=== PATIENT | female | born 1960 | race Caucasian/White ===

== ENCOUNTER 2020-07-30 13:57 | Outpatient (REF) | payer OTHER, SELFPAY ==
--- NOTE | 2020-07-30 17:25 | PFT_ITS ---
Forced vital capacity moderately reduced. FEV1 is markedly reduced. OQT94-17 and MVV are also markedly reduced. Post bronchodilator therapy, there is significant improvement in all the flow volumes. Total lung capacity and residual volume normal. Diffusion capacity normal. CONCLUSION: Moderately severe obstructive airway disorder. Partial reversibility after bronchodilator therapy is noted. These findings are consistent with asthma/COPD overlap syndrome. Clinical correlation recommended. MD JESIKA Mullen/MODL / [id number]
== END 2020-07-30 13:58 | disposition home or self-care (01) ==
LOC: HO.RESP 13:57
PROVIDERS: PCP Internal Medicine; Visit Provider Hospitalist
DX: R06.00 Dyspnea, unspecified (principal)
CPT/HCPCS: 94060; 94727; 94729; 99212

== ENCOUNTER 2020-07-31 12:09 | Outpatient (REF) | payer OTHER, SELFPAY ==
[2020-07-31 12:52] LABS: ABG Base Excess 1.6 mmol/L; ABG HCO3 25 mmol/L (22-26); ABG pCO2 34 mmHg (32-45); ABG pCO2 TC 34 mmHg (32-45); ABG pH 7.46 (7.35-7.45); ABG pH TC 7.46 (7.35-7.45); ABG pO2 109 mmHg (83-108); ABG pO2 TC 109 (83-108)
[2020-07-31 12:53] LABS: ABG Refer to POC result
== END 2020-07-31 12:10 | disposition home or self-care (01) ==
LOC: HO.LAB 12:09
PROVIDERS: PCP Internal Medicine; Visit Provider Hospitalist
DX: Z13.89 Encounter for screening for other disorder (principal)

== ENCOUNTER → 2020-10-01 10:36 | Outpatient (BNVA) | payer OTHER, SELFPAY | PROVIDERS: PCP Internal Medicine; Visit Provider Hospitalist | DX: J96.11 Chronic respiratory failure with hypoxia (principal); J96.12 Chronic respiratory failure with hypercapnia; J43.2 Centrilobular emphysema; J38.3 Other diseases of vocal cords; J02.9 Acute pharyngitis, unspecified; D80.1 Nonfamilial hypogammaglobulinemia | CPT/HCPCS: 99212 ==

== ENCOUNTER → 2020-12-03 09:28 | Outpatient (BNVA) | payer OTHER, SELFPAY | PROVIDERS: PCP Internal Medicine; Visit Provider Hospitalist | DX: J96.11 Chronic respiratory failure with hypoxia (principal); J96.12 Chronic respiratory failure with hypercapnia; J43.2 Centrilobular emphysema; D80.1 Nonfamilial hypogammaglobulinemia | CPT/HCPCS: 99212 ==

== ENCOUNTER 2021-05-14 09:33 | Outpatient (REF) | payer OTHER, SELFPAY ==
--- NOTE | ~2021-05-14 | XR_ITS ---
EXAMINATION: XR CHEST CLINICAL INFORMATION: COPD. SOB. COMPARISON: Chest 05/25/2019 TECHNIQUE: 2 views of the chest were obtained. FINDINGS: The lungs are well-expanded and clear of acute process. The heart size and pulmonary vascularity is normal. No gross bony abnormality seen. XR/XR chest 2V IMPRESSION: No acute cardiopulmonary process seen. No change from 05/25/2019
[2021-05-14 10:53] LABS: MANUAL DIFF FLAG NO
[2021-05-14 11:06] LABS: Basophils Percent Auto 0.2 % (0-2); Hematocrit 36.3 % (37.0-47.0); Imm Gran Abs Auto 0.02 X10*3/uL (0.00-0.03); Imm Gran Pct Auto 0.4 % (0.0-0.4); Lymphocytes Absolute Auto 0.9 X10*3/uL (1.2-4.9); Lymphocytes Percent Auto 17.5 % (20-40); Mean Corpuscular HGB Conc 33.1 g/dl (31.0-35.0); Mean Corpuscular Hemoglobin 30.5 pg (27.0-33.0); Mean Corpuscular Volume 92.1 fL (80.0-98.0); Mean Platelet Volume 10.9 fL (9.4-12.3); Monocytes Absolute Auto 0.1 X10*3/uL (0.1-1.2); Neutrophils Absolute Auto 3.9 x10*3/uL (2.0-8.3); Neutrophils Percent Auto 79.9 % (45-73); Platelet Count 192 X10*3/uL (160-400); Red Blood Count 3.94 X10*6/uL (4.20-5.50); Red Cell Distribution Width 14.1 % (11.0-16.0); White Blood Count 4.9 X10*3/uL (4.8-10.8)
[2021-05-14 11:16] LABS: D Dimer High Sensitivity 290 NG/ML
[2021-05-14 11:37] LABS: Anion Gap 13 (12-20); Blood Urea Nitrogen 24 mg/dL (9-16); Calcium 9.4 mg/dL (8.4-10.2); Carbon Dioxide 23 mmol/L (22-29); Chloride 109 mmol/L (96-108); Estimated Glomerular Filt Rate > 60; Glucose Random 126 mg/dL (60-115); Sodium 141 mmol/L (135-145)
[2021-05-14 11:46] LABS: Erythrocyte Sedimentation Rate 19 MM/HR (0-20)
[2021-05-15 05:10] LABS: SARS COV2 IgG Negative (Negative)
== END 2021-05-14 09:34 | disposition home or self-care (01) ==
LOC: HO.LAB 09:33
PROVIDERS: PCP Internal Medicine; Visit Provider Hospitalist
DX: J96.10 Chronic respiratory failure, unspecified whether with hypoxia or hypercapnia (principal); J44.9 Chronic obstructive pulmonary disease, unspecified; R05.9 Cough, unspecified; D80.1 Nonfamilial hypogammaglobulinemia; Z20.822 Contact with and (suspected) exposure to COVID-19; Z88.1 Allergy status to other antibiotic agents; Z88.0 Allergy status to penicillin; Z88.8 Allergy status to other drugs, medicaments and biological substances; Z88.9 Allergy status to unspecified drugs, medicaments and biological substances; Z23 Encounter for immunization
CPT/HCPCS: 36415; 71046; 80048; 85025; 85379; 85652; 86769; 96372; 99212; J2930

== ENCOUNTER 2021-05-16 13:49 | Outpatient (REF) | payer OTHER, SELFPAY ==
--- NOTE | ~2021-05-16 | CT_ITS ---
EXAMINATION: CT ANGIOGRAM OF THE CHEST WITH AND WITHOUT CONTRAST (CT PULMONARY ANGIOGRAM FOR PE) CLINICAL INFORMATION: Reason for Exam R06.00 - Dyspnea, unspecified COMPARISON: Previous chest x-rays most recent 05/14/2021 TECHNIQUE: Prior to contrast administration, noncontrast localization images were obtained. Subsequently, multidetector volumetric imaging was performed from the thoracic inlet to below the diaphragms following the administration of 65 mL Omnipaque 350 intravenous contrast. No contrast reaction reported Sagittal, coronal, and MIP oblique sagittal reformatted images were obtained on the CT workstation, uploaded to PACS, and reviewed. This CT examination was performed using dose optimization techniques as appropriate, variously including the following: *Automated exposure control *Adjustment of mA and/or kV according to patient size (this includes techniques or standardized protocols for targeted exams where dose is matched to indication/reason for exam; i.e. extremities or head) *Use of iterative reconstruction technique Total exam dose-length product 112 mGy-cm FINDINGS: QUALITY OF STUDY/CONTRAST BOLUS: Satisfactory. PULMONARY ARTERIES: No central or segmental pulmonary emboli. THORACIC AORTA: No aneurysm or dissection. LUNG: No focal consolidation, nodules or masses. PLEURA: No pleural effusion or pneumothorax. MEDIASTINUM: Normal heart size. No pericardial effusion. No hilar or mediastinal lymphadenopathy. No evidence of septal bowing or right heart strain. CHEST WALL/AXILLA: No axillary or internal mammary lymphadenopathy. OSSEOUS STRUCTURES: There is an L1 vertebral body compression fracture. This is new in the interval from April 2019 chest x-ray. UPPER ABDOMEN: There are postsurgical changes to the stomach following gastric sleeve procedure. No reflux of contrast into the hepatic veins to suggest elevated right heart pressures. CT/CT angio chest PE protocol IMPRESSION: No evidence of pulmonary embolism. L1 vertebral body compression fracture new in the interval from April 2019 exam. VTE: negative
[2021-05-16] MEDS: iohexoL 350 MG/ML 100 ML INFUS..BTL IV (14:43)
== END 2021-05-16 13:50 | disposition home or self-care (01) ==
LOC: HO.CT 13:49
PROVIDERS: PCP Internal Medicine; Visit Provider Hospitalist
DX: R06.00 Dyspnea, unspecified (principal); R78.89 Finding of other specified substances, not normally found in blood
CPT/HCPCS: 71275; Q9967

== ENCOUNTER → 2021-06-04 10:36 | Outpatient (BNVA) | payer OTHER, SELFPAY | PROVIDERS: PCP Internal Medicine; Visit Provider Hospitalist | DX: J44.1 Chronic obstructive pulmonary disease with (acute) exacerbation (principal); J96.11 Chronic respiratory failure with hypoxia; J96.12 Chronic respiratory failure with hypercapnia; D80.1 Nonfamilial hypogammaglobulinemia; I27.20 Pulmonary hypertension, unspecified | CPT/HCPCS: 99212 ==

== ENCOUNTER → 2021-06-20 13:51 | Outpatient (REF) | payer OTHER, SELFPAY ==
--- NOTE | 2021-06-20 13:54 | CA_ITS ---
Transthoracic Echocardiogram Patient (Last, First, Middle): Ann Knox, Gender: Female Date of : 1960 Age: 60 Procedure Date: 06/20/2021 Procedure Type: Transthoracic Echocardiogram Location: OP Height: 160.02 cm Weight: 70.31 kg BSA: 1.74 m2 Heart Rate: bpm BP: 120 / 70 mmHg Booth Manager: CAMELIA Referring MD: Benoit Vazquez MD Symptoms: I27.20 - Pulmonary hypertension, unspecified Study Quality: Fair ECG Rhythm: Sinus Conclusions: - The left ventricular systolic function is normal. The calculated ejection fraction is 62% by biplane method. - No obvious valvular pathology seen on this study. - The pulmonary artery systolic pressure is normal. Findings Left Ventricle Normal left ventricular cavity size. There is normal left ventricular wall thickness. The left ventricular systolic function is normal. The calculated ejection fraction is 62% by biplane method. There is no evidence of regional wall motion abnormalities. Diastolic function is normal for age. Right Ventricle Normal right ventricular cavity size and systolic function. Atria Both atria are normal in size. Aortic Valve There is a normal trileaflet aortic valve. There is no aortic valve stenosis. There is no aortic valve regurgitation. Mitral Valve The mitral valve appears normal. There is trace mitral valve regurgitation. There is no mitral valve stenosis. Pulmonic Valve The pulmonic valve was not well visualized. Tricuspid Valve Normal tricuspid valve structure. There is trace tricuspid valve regurgitation. The pulmonary artery systolic pressure is normal. Great Vessels The aortic annulus, sinuses of valsalva, and asc aorta are normal in size. Venous The inferior vena cava is normal in size and collapses greater than 50% with inspiration. Pericardium/Pleural There is no evidence of pericardial effusion. Prior Study Comparison No prior study available for comparison. Recommendations, Care & Conclusions No obvious valvular pathology seen on this study. Measurements 2D Linear Measurements IVSd: 0.96 0.6-0.9/0.6-1.0 cm LVIDd: 4.81 3.9-5.3/4.2-5.9 cm LVIDd Index: 2.76 2.4-3.2/2.2-3.1 cm/m2 LVIDs: 2.95 2.0-3.6 cm LVPWd: 0.90 0.7-1.1 cm Ao Root: 2.80 2.1-3.5 cm LA Diam: 3.30 2.7-3.8/3.0-4.0 cm LAIDs Index: 1.90 1.5-2.3 cm/m2 LV Mass: 192.87 67-162/88-224 g LV Mass Index: 110.85 43-95/49-115 g/m2 LVOT Diam: 2.00 3.0+(-)1.3 cm 2D Systolic Function EF 4C: 60.90 >55% EF 2C: 62.60 >55% EF BiP: 61.60 >55% Mitral Valve MV Pk E: 0.82 MV PK A: 0.75 MV Decel Time: 205.00 E/A: 1.10 E'Lateral: 10.40 E'Medial: 7.07 E/E' Med: 11.60 E/E' Lat: 7.90 PHT: 60.00 MVA PHT: 3.67 Decel [place]: 3.99 Aortic Valve AoV Pk Raffaele: 1.32 AoV Mn Raffaele: 0.93 AoV VTI: 0.29 AoV Pk Grad: 7.00 Aov Mn Grad: 4.00 DAVID Cont.VTI: 3.02 LVOT LVOT Pk Raffaele: 1.19 LVOT Mn Raffaele: 0.81 LVOT VTI: 0.28 LVOT Pk Grad: 6.00 LVOT Mn Grad: 3.00 LVOT Diam: 2.00 LVOT Area: 3.14 Diastolic Function MV Pk E: 0.82 MV Pk A: 0.75 E/A: 1.10 E'Medial: 7.07 E/E' Med: 11.60 E' Laterial: 10.40 E/E' Lat: 7.90 Right Ventricle TAPSE (mm): 22.10 TVS' Raffaele: 11.50 Tricuspid Valve TR Pk Raffaele: 2.27 TR Pk Grad: 21.00 RA Press: 3.00 RVSP: 24.00 Great Vessels Aorta Ao Root-2D: 2.80 2.0-3.7 cm Ao Asc: 2.80 2.1-3.4 cm Ao Arch: 2.80 Updated in Other Vendor System with Status of Final Shaan Littlejohn MD electronically signed on 06/22/2021 12:51:42 PM with status of Final
== END ==
LOC: HO.CARD 13:51
PROVIDERS: Visit Provider Hospitalist
DX: I27.20 Pulmonary hypertension, unspecified (principal)
CPT/HCPCS: 93306

== ENCOUNTER 2021-07-28 08:59 | Outpatient (REF) | payer OTHER, SELFPAY ==
--- NOTE | 2021-07-28 10:45 | PFT_ITS ---
INDICATION: COPD. SPIROMETRY: The FEV1 to FVC 62% with an FEV1 of 1.5 L, which is 64% predicted and an FVC of 2.38 L, which is 78% predicted. Post bronchodilators, there was a significant improvement of the FVC by 32% and the FEV1 by 40%. The patient also has significant small airways disease noted. Maximum voluntary ventilation 44% predicted. LUNG VOLUMES: Total lung capacity 84% predicted with a residual volume of 120% predicted. The expiratory reserve volume 34% predicted. DIFFUSION CAPACITY: DLCO 74% predicted. COMPARISONS: PFTs from 2020. INTERPRETATION: There is an obstructive ventilatory defect consistent with moderate COPD. There was a significant response to bronchodilators, which is very reassuring and suspicious for asthma COPD overlap syndrome. The patient also has significant small airways disease. There is a [id number] decrease in maximum voluntary ventilation secondary to deconditioning and also worsening dynamic inspiratory capacity. The patient also has a mild diffusion impairment. When compared to 2020, there is a trend increase in the FVC, trend decrease in the FEV1, a trend decrease in the total lung capacity, and a significant decrease in the diffusing capacity. Clinical correlation warranted. MD CHASIDY Garcia/RICHI / [id number]
== END 2021-07-28 09:00 | disposition home or self-care (01) ==
LOC: HO.RESP 08:59
PROVIDERS: PCP Internal Medicine; Visit Provider Hospitalist
DX: R06.00 Dyspnea, unspecified (principal); I27.20 Pulmonary hypertension, unspecified
CPT/HCPCS: 94060; 94727; 94729

== ENCOUNTER → 2021-08-06 10:29 | Outpatient (BNVA) | payer OTHER, SELFPAY | PROVIDERS: PCP Internal Medicine; Visit Provider Internal Medicine Cardiovascular Disease | DX: R06.00 Dyspnea, unspecified (principal) | CPT/HCPCS: 93005; 99202 ==

== ENCOUNTER → 2021-08-29 12:56 | Outpatient (BNVA) | payer OTHER, SELFPAY | PROVIDERS: PCP Internal Medicine; Visit Provider Hospitalist | DX: J44.1 Chronic obstructive pulmonary disease with (acute) exacerbation (principal); J96.11 Chronic respiratory failure with hypoxia; J96.12 Chronic respiratory failure with hypercapnia; D80.1 Nonfamilial hypogammaglobulinemia; I27.20 Pulmonary hypertension, unspecified | CPT/HCPCS: 99212 ==

== ENCOUNTER → 2021-09-02 09:24 | Outpatient (REF) | payer OTHER, SELFPAY ==
--- NOTE | ~2021-09-02 | NM_ITS ---
Lexiscan Myocardial perfusion study Indication: Shortness of breath, assess for coronary disease and ischemia Technique: The patient was brought in for a Lexiscan perfusion study on 09/02/2021 and was injected 0.4 mg of Lexiscan intravenously. Within a minute of this injection 25 mCi of sestamibi was given intravenously. Images were obtained using the SPECT gamma camera interlaced with the gating device. Images were obtained in supine position. Resting perfusion study was performed on 09/03/2021. Patient was administered 25 mCi of sestamibi intravenously at rest. Images were then obtained in supine position. Total DLP 101mGy-cm. Images were processed with the software and compared side to side in short axis, horizontal long axis and vertical long axis views. Findings: Raw acquisition was reviewed. The stress perfusion study showed no significant perfusion abnormality. Inferior wall uptake not clearly seen as there is adjacent GI tracer uptake. With CT attenuation correction, perfusion is overall diminished in that could be from artifactual reasons. During gating, visually, LVEF appears normal with calculated to be 32%. Could be erroneous. Global and regional wall thickening appears to be within normal limits but inferior wall assessment is again suboptimal. LV cavity is normal in size. Resting study shows no significant perfusion abnormality. Gating at rest reveals normal wall motion with ejection fraction at 54%. The findings are consistent with no definite reversible or fixed perfusion defects but inferior wall assessment suboptimal. NM/NM rena perf SPECT rest & str Impression: 1. Myocardial perfusion imaging study shows no clear evidence of any ischemia or infarction. However, there is GI tracer uptake interfering with inferior wall assessment and hence cannot definitively exclude findings in this area. 2. Gated LVEF is 34% during stress but visually appears to be normal; 54% during rest. 3. Transient ischemic dilatation not present. EKG component of the test reported separately.
--- NOTE | 2021-09-02 09:28 | CA_ITS ---
Acquisition Time: 2021-09-02 09:51:12 Total Exercise Time: 00:02:00 Test Indications: SOB Medications: Protocol: LEXISCAN Max HR: 094 BPM 59% of Pred: 159 BPM Max BP: 118/064 mmHG Max Work Load: 1.0 METS Pharmacological stress test with Lexican injection, while sitting and kicking her legs, without anginal symptoms, without arrythmia, with normotensive response to injection, with nondiagnostic EKG for ischemia. Nuclear images pending. Test reviewed with Dr Gupta. note: prior to test she reported hx of asthma and was given Albuteral 2 puffs Referred By: Rc Gupta Overread By: ANITHA MARKHAM
== END ==
LOC: HO.CARD 09:24
PROVIDERS: PCP Internal Medicine; Visit Provider Internal Medicine Cardiovascular Disease
DX: I27.20 Pulmonary hypertension, unspecified (principal); R06.00 Dyspnea, unspecified
CPT/HCPCS: 78452; 93017; A9500; J0280; J2785

== ENCOUNTER → 2021-12-23 10:50 | Outpatient (BNVA) | payer OTHER, SELFPAY | PROVIDERS: PCP Internal Medicine; Visit Provider Hospitalist | DX: J44.1 Chronic obstructive pulmonary disease with (acute) exacerbation (principal); J96.11 Chronic respiratory failure with hypoxia; J96.12 Chronic respiratory failure with hypercapnia; G47.33 Obstructive sleep apnea (adult) (pediatric); D80.1 Nonfamilial hypogammaglobulinemia; I27.20 Pulmonary hypertension, unspecified; Z99.89 Dependence on other enabling machines and devices | CPT/HCPCS: 99212 ==

== ENCOUNTER → 2022-02-26 13:24 | Outpatient (BNVA) | payer OTHER, SELFPAY | PROVIDERS: PCP Internal Medicine; Visit Provider Psychiatry & Neurology Neurology | DX: M79.652 Pain in left thigh (principal) | CPT/HCPCS: 99202 ==

== ENCOUNTER → 2022-04-07 14:03 | Outpatient (BNVA) | payer OTHER, SELFPAY | PROVIDERS: PCP Internal Medicine; Visit Provider Nurse Practitioner Family | DX: M79.652 Pain in left thigh (principal); M62.838 Other muscle spasm; G57.92 Unspecified mononeuropathy of left lower limb; Z96.642 Presence of left artificial hip joint | CPT/HCPCS: 99202 ==

== ENCOUNTER 2022-05-13 06:06 | Outpatient (REF) | payer OTHER, SELFPAY | END 2022-05-13 06:07 | disposition home or self-care (01) | LOC: CF 06:06 | PROVIDERS: Visit Provider Internal Medicine | DX: G57.12 Meralgia paresthetica, left lower limb (principal); G57.92 Unspecified mononeuropathy of left lower limb | CPT/HCPCS: 64450 ==

== ENCOUNTER → 2022-05-18 10:51 | Outpatient (BNVA) | payer OTHER, SELFPAY | PROVIDERS: PCP Internal Medicine; Visit Provider Nurse Practitioner Family | DX: M79.652 Pain in left thigh (principal); G57.92 Unspecified mononeuropathy of left lower limb; M25.511 Pain in right shoulder; G57.12 Meralgia paresthetica, left lower limb | CPT/HCPCS: 99212 ==

== ENCOUNTER 2022-05-27 04:51 | Outpatient (REF) | payer OTHER, SELFPAY | END 2022-05-27 04:52 | disposition home or self-care (01) | LOC: CF 04:51 | PROVIDERS: Visit Provider Internal Medicine | DX: G57.12 Meralgia paresthetica, left lower limb (principal) | CPT/HCPCS: 64450; J1020; J1040; J1100; J2795; J3301 ==

== ENCOUNTER → 2022-06-12 11:28 | Outpatient (BNVA) | payer OTHER, SELFPAY | PROVIDERS: PCP Internal Medicine; Visit Provider Nurse Practitioner Family | DX: Z13.89 Encounter for screening for other disorder (principal) ==

== ENCOUNTER → 2022-07-06 09:13 | Outpatient (BNVA) | payer OTHER, SELFPAY | PROVIDERS: PCP Internal Medicine; Visit Provider Internal Medicine | DX: M54.6 Pain in thoracic spine (principal); M54.50 Low back pain, unspecified; G57.12 Meralgia paresthetica, left lower limb; G57.92 Unspecified mononeuropathy of left lower limb; G89.29 Other chronic pain | CPT/HCPCS: 99212 ==

== ENCOUNTER → 2022-07-27 09:07 | Outpatient (BNVA) | payer OTHER, SELFPAY | PROVIDERS: PCP Internal Medicine; Visit Provider Nurse Practitioner Family | DX: G57.12 Meralgia paresthetica, left lower limb (principal); G57.92 Unspecified mononeuropathy of left lower limb; M25.511 Pain in right shoulder; M79.652 Pain in left thigh; J44.9 Chronic obstructive pulmonary disease, unspecified; G47.33 Obstructive sleep apnea (adult) (pediatric); Z98.84 Bariatric surgery status; Z96.642 Presence of left artificial hip joint; Z99.89 Dependence on other enabling machines and devices | CPT/HCPCS: 99212 ==

== ENCOUNTER 2022-07-31 10:00 | Outpatient (REF) | payer OTHER, SELFPAY ==
--- NOTE | 2022-07-31 11:24 | PFT_ITS ---
FLOWS: 1. FEV1 of 65% of predicted at 1.52 L. 2. FVC 76% of predicted at 2.30 L. 3. FEV1 to FVC ratio of 0.66. 4. Positive bronchodilator response. LUNG VOLUMES: 1. Total lung capacity 85% of predicted at 4.07 L. 2. Residual volume 107% of predicted at 2.08 L. 3. Slow vital capacity 70% of predicted at 1.98 L. 4. Expiratory reserve volume 7% of predicted at 0.06 L. 5. Diffusion capacity is normal. IMPRESSION: Moderate obstructive ventilatory defect with positive bronchodilator response. Maninder Barrett MD AP/MODL / [id number]
== END 2022-07-31 10:01 | disposition home or self-care (01) ==
LOC: HO.RESP 10:00
PROVIDERS: PCP Internal Medicine; Visit Provider Hospitalist
DX: J44.1 Chronic obstructive pulmonary disease with (acute) exacerbation (principal)
CPT/HCPCS: 94060; 94727; 94729

== ENCOUNTER 2022-08-18 06:12 | Outpatient (REF) | payer OTHER, SELFPAY ==
--- NOTE | ~2022-08-18 | FL_ITS ---
EXAMINATION: XR FLUOROSCOPY WITH IMAGES CLINICAL INFORMATION: M25.511 - Pain in right shoulder COMPARISON: Chest radiographs 05/14/2021 TECHNIQUE: Fluoroscopy Supervised By: Dr. Tanvir Martines. Fluoroscopy Time: 0.2 minutes. Cumulative Dose: 1.74 mGy. DAP: 0.474 Gycm2. Images: 1. FINDINGS: There is a spinal needle overlying the superior medial right humeral head. Intracapsular intra-articular contrast is demonstrated. There is nodularity of the contrast contours may suggest synovitis or loose bodies. FL/FL guidance in treatment room IMPRESSION: Fluoroscopy for pain management procedure.
== END 2022-08-18 06:13 | disposition home or self-care (01) ==
LOC: CF 06:12
PROVIDERS: Visit Provider Anesthesiology
DX: M25.511 Pain in right shoulder (principal); G57.12 Meralgia paresthetica, left lower limb; G57.92 Unspecified mononeuropathy of left lower limb; M79.652 Pain in left thigh
CPT/HCPCS: 20610; J3301

== ENCOUNTER → 2022-09-15 14:57 | Outpatient (BNVA) | payer OTHER, SELFPAY | PROVIDERS: PCP Internal Medicine; Visit Provider Nurse Practitioner Family | DX: G57.12 Meralgia paresthetica, left lower limb (principal); M25.552 Pain in left hip; M79.652 Pain in left thigh; M25.511 Pain in right shoulder; M62.838 Other muscle spasm; Z96.641 Presence of right artificial hip joint; Z91.81 History of falling | CPT/HCPCS: 99212 ==

== ENCOUNTER → 2022-09-25 10:49 | Outpatient (BNVA) | payer OTHER, SELFPAY | PROVIDERS: PCP Internal Medicine; Visit Provider Hospitalist | DX: J44.1 Chronic obstructive pulmonary disease with (acute) exacerbation (principal); J96.11 Chronic respiratory failure with hypoxia; J96.12 Chronic respiratory failure with hypercapnia; I27.20 Pulmonary hypertension, unspecified; D80.1 Nonfamilial hypogammaglobulinemia; R06.00 Dyspnea, unspecified | CPT/HCPCS: 99212 ==

== ENCOUNTER 2022-10-19 10:26 | Outpatient (REF) | payer OTHER, SELFPAY ==
--- NOTE | ~2022-10-19 | XR_ITS ---
EXAMINATION: XR CERVICAL SPINE CLINICAL INFORMATION: Cervical spondylosis. COMPARISON: None available. TECHNIQUE: 6 views of the cervical spine, inclusive of flexion and extension views, were obtained. FINDINGS: Cervical spine is imaged through the level of the superior endplate of C7. There is 2 mm retrolisthesis of C3 on C4. Vertebral body heights are maintained. Moderate intervertebral disc space narrowing at C3-C4 through C5-C6 with right neural foraminal narrowing. Lateral masses are symmetric. Prevertebral soft tissues are within normal limits. XR/XR cervical spine min 6V IMPRESSION: Moderate cervical spondylosis with right neural foraminal narrowing.
== END 2022-10-19 10:27 | disposition home or self-care (01) ==
LOC: HO.XRAY 10:26
PROVIDERS: PCP Internal Medicine; Visit Provider Nurse Practitioner Family
DX: M47.812 Spondylosis without myelopathy or radiculopathy, cervical region (principal); M62.838 Other muscle spasm
CPT/HCPCS: 72052

== ENCOUNTER 2022-11-25 07:25 | Outpatient (REF) | payer OTHER, SELFPAY | END 2022-11-25 07:26 | disposition home or self-care (01) | LOC: CF 07:25 | PROVIDERS: PCP Internal Medicine; Visit Provider Internal Medicine | DX: G57.12 Meralgia paresthetica, left lower limb (principal) | CPT/HCPCS: 64450; J3301 ==

== ENCOUNTER 2022-11-25 08:50 | Outpatient (AMB) | payer OTHER, SELFPAY ==
[2022-11-25 08:57] VITALS: BP 122/76; PULSE 61; RESP 14; O2SAT 100
--- NOTE | 2022-11-25 08:57 | A.OFFVIS_ITS ---
Intake Vital Signs 11/25/22 08:57 BP 122/76 Blood Pressure Location Lt brachial Position Sitting Respiration 14 Pulse 61 Pulse Source Pulse Oximeter Pulse Oximetry (%) 100 Oxygen Delivery Method Room Air Intake Visit Reasons: Left Dx LFCN block Allergies ampicillin Allergy (Severe, Verified 10/19/22 10:31) Rash and Hives azithromycin Allergy (Severe, Verified 10/19/22 10:31) Rash/Hives methylprednisolone Allergy (Severe, Verified 10/19/22 10:31) Rash and Hives potassium Allergy (Severe, Verified 10/19/22 10:31) Rash and Hives theophylline Allergy (Severe, Verified 10/19/22 10:31) Rash and Hives aminophylline Allergy (Intermediate, Verified 10/19/22 10:31) Rash and Hives adhesive Allergy (Unknown, Verified 10/19/22 10:31) Rash Polyethylene Glycol Allergy (Severe, Uncoded 09/25/22 11:00) Rash and Hives Tape Allergy (Severe, Uncoded 09/25/22 11:00) Rash and Hives HPI Left Dx LFCN block HPI Details Patient presents for scheduled procedure. Denies any recent cough, cold, infection, fever or other significant changes in medical history since last office visit. [facility] Medical History Blood D-dimer assay positive Chronic respiratory failure COPD (chronic obstructive pulmonary disease) Dyspnea Glaucoma Hypogammaglobulinemia Hypothyroidism Menieres disease Obstructive sleep apnea Sore throat Vocal cord dysfunction Surgical History H/O abdominoplasty H/O gastric bypass H/O hemorrhoidectomy H/O inguinal hernia repair History of colon resection History of hip surgery Hx of section Hx of shoulder surgery S/P iridectomy Family History Father COPD (chronic obstructive pulmonary disease) Mother Type 2 diabetes mellitus Hypertension Renal insufficiency Family/Other Colon cancer AIDS Schizophrenia Social History Alcohol intake: current Alcohol intake frequency: does not drink Patient Tobacco Use Status: Never used Tobacco Current occupational status: disabled Physical Exam Vital Signs: Last Vital Signs Pulse 61 11/25/22 08:57 Resp 14 11/25/22 08:57 BP 122/76 11/25/22 08:57 Pulse Ox 100 11/25/22 08:57 Oxygen Delivery Method Room Air 11/25/22 08:57 Office Procedures Nerve Block Details: Lateral femoral cutaneous nerve block, Left, ultrasound-guided After obtaining written consent, pre-procedure blood pressure and heart rate were stable and recorded in the nursing record. The patient was placed supine on the stretcher. The anterior thigh area was widely prepped with chloraprep, allowed to dry. Using ultrasound, the appropriate landmarks including the femoral artery and femoral nerve were identified. The LFCN was tracked down to the anterior thigh area. A 25 gauge 1.5 in needle was advanced under sonographic guidance to the target. Aspiration was negative for heme. 10 cc of ropivacaine 0.5% mixed with 40mg Triamcinilone?was injected around the LFCN. The needle was removed, skin cleansed and a sterile bandage was applied. The patient tolerated the procedure well and no complications were encountered. Following the procedure the patient's vital signs were stable. The patient was discharged home in good condition with post-procedural instructions. Time Out: Immediately prior to the procedure, the following was verbally confirmed that there is a signed consent form and that the correct patient, planned procedure, site and side are consistent with documentation and that necessary equipment and/or blood products are available prior to the start of the case. Complications: none EBL: <1 cc Procedure code (CPT) selection complete Results Reviewed Results Reviewed: 11/25/22 09:17 Triamcinolone Acetonide [Kenalog-40] 40 mg .ROUTE .[facility] Assessment & Plan Assessment & Plan (1) Meralgia paresthetica of left side: Code(s): G57.12 - Meralgia paresthetica, left lower limb Plan Patient is status post therapeutic left LFCN block. Patient tolerated procedure well and was discharged home in stable condition with discharge instructions. All questions were answered. We will follow-up via telephone or in clinic to assess response to therapy. A follow-up appointment was made during today's visit. Recommend waiting on insurance change before resubmitting PA for PNS. Orders: Orders US guide needle placement Today G57.12 - Meralgia paresthetica, left lower limb Coding Level of Care Code Procedure Only Diagnoses Meralgia paresthetica of left side G57.12
== END 2022-11-25 09:27 | disposition home or self-care (01) ==
PROVIDERS: PCP Physician Assistant; Visit Provider Internal Medicine
DX: G57.12 Meralgia paresthetica, left lower limb (principal)
CPT/HCPCS: 64450

== ENCOUNTER 2022-12-29 10:13 | Outpatient (AMB) | payer OTHER, SELFPAY ==
--- NOTE | 2022-12-29 10:23 | A.OFFVIS_ITS ---
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 Required: No Allergies ampicillin Allergy (Severe, Verified 12/29/22 10:27) Rash and Hives azithromycin Allergy (Severe, Verified 12/29/22 10:27) Rash/Hives methylprednisolone Allergy (Severe, Verified 12/29/22 10:27) Rash and Hives potassium Allergy (Severe, Verified 12/29/22 10:27) Rash and Hives theophylline Allergy (Severe, Verified 12/29/22 10:27) Rash and Hives aminophylline Allergy (Intermediate, Verified 12/29/22 10:27) Rash and Hives clindamycin Allergy (Intermediate, Unverified 12/29/22 10:49) Rash adhesive Allergy (Unknown, Verified 12/29/22 10:27) Rash Polyethylene Glycol Allergy (Severe, Uncoded 12/29/22 10:27) Rash and Hives Tape Allergy (Severe, Uncoded 12/29/22 10:27) Rash and Hives HPI HPI Comments History of Present Illness Details The patient is a 62-year-old woman with a known history of severe COPD in addition to obstructive sleep apnea. The patient continues to using BiPAP at night the BiPAP therapy continues to be affecting beneficial. She has the BiPAP every night for more than 4 hours a night. [facility] I will request a download to see how effective it is for her. She continues to use her respiratory therapy. She has not required any prednisone. She continues to have significant shortness of breath, moderate severity. She does have oxygen at home that she uses. She is also using her BiPAP pressures 18/11. The therapy seems to be affecting beneficial. We did download the machine her AHI is down to 3.4. Her average use is more than 6 hours. The therapy appears to be very effective beneficial. She does use a nasal mask although sometimes she does have air leakage issues. She should consider using a fullface mask. Will try [id number] mask at this time. On examination she does have significant wheezing or rhonchi likely from bronchitis and COPD exacerbation. At this time we need to treat this before gets any worse. 05/14/2021 the patient is here for a pulmonary follow-up visit. The patient has been sick now for more than a week. She started developing worsening respiratory symptoms with chest tightness and pressure. Moderate severity. Initially she was evaluated by her primary care doctor. She had a COVID test was negative. She was placed on a Z-Santosh. She developed a rash. She then called our office and we had prescribed a course of prednisone in addition to doxycycline. She has been using now for 48 hours but the patient is no better she is having significant shortness of breath and wheezing. I did examine her and she had significant chest tightness throughout with wheezing throughout. She was given 3 treatments with Xopenex 1.25 mg via nebulizer with only partial improvement. Therefore, she was also provided with Solu-Medrol 125 mg IM x1. Hopefully this starts working in the next few hours. In the meantime the patient did go for blood work and also had a chest x-ray. She did have an x-ray last week in this 1 does not appear to show any acute disease. I did review her blood work which demonstrated an elevated D-dimer. Based on her refractory response to her therapy for a COPD exacerbation it is reasonable to at this point request a CTA to rule out thromboembolic disease. 06/04/2021 the patient is here for a pulmonary follow-up visit. She still complaining of shortness of breath and also chest discomfort at times. She is maximizing her respiratory therapy. The patient did have blood work including an elevated D-dimer. Therefore she did undergo a CTA. I did review the CTA with her. No evidence of any significant emphysema or interstitial lung disease. No evidence of any pulmonary emboli. However, the patient did have a dilated pulmonary trunk suggesting the possibility of pulmonary hypertension. Therefore, she is agreeable in undergoing echocardiogram. Also will be unreasonable for her to be evaluated by Cardiology just to make sure that she does not have a cardiac component. The patient should get a stress test at some point. Therefore I will order the echo and also refer her to Cardiology. 08/29/2021 the patient is here for a pulmonary follow-up visit. Overall she is doing relatively well. She did have a cardiac evaluation. Now planning to undergo a cardiac stress test. She did undergo an echocardiogram which is reassuring without any evidence of pulmonary hypertension. Her pulmonary function studies were consistent with her underlying COPD. But overall appears to be relatively stable. She continues use the BiPAP at nighttime the therapy has been affecting beneficial. Seems to be tolerating it well. She does not require oxygen along with BiPAP based on the overnight oximetry. 12/23/2021 the patient is here for a pulmonary follow-up visit. She continues to have dyspnea on exertion. Moderate severity. Specially with heat and humidity. She has not been able to leave her house. She continues use her respiratory therapy as prescribed. The therapy has been partially helpful. In the meantime she has been using her BiPAP. The BiPAP therapy continues to be affecting beneficial. Her AHI is well below 5 and stable. The patient no longer required oxygen supplementation is reassuring. Again a cardiac workup was reassuring as well. Patient continues to be very limited from a respiratory status however. 09/25/2022 the patient is here for a pulmonary follow-up visit. She still continues to have significant dyspnea on exertion. Now with the heat and humidity is makes it hard for her. She does use her medications as prescribed and is currently optimized and respiratory therapy. The patient also has been using her BiPAP. He has been having hard time with it though. Seems to have b een having hard time tolerating the pressures. Therefore, we had tried adjusting the pressures during the last visit. Will go ahead and adjust the machine again but at this point will request a BiPAP titration study. The patient may need oxygen with the BiPAP. also, the patient will need end-tidal CO2 monitoring to see if she benefits from AVAPS. We did review her recent pulmonary function studies. Patient does have moderate to severe COPD. This has affected her functional capacity. She has other medical comorbidities that also are contributing to her ongoing symptoms and incapacity. 12/29/2022 the patient is here for pulmonary follow-up visit. She continues to have daytime drowsiness. Her Castella score is elevated 10/24. She does use the BiPAP every night. She also has a history of COPD and chronic hypercarbic respiratory failure. She had been on noninvasive ventilator in the past but then insurance issues resulted in the discontinuation of the noninvasive ventilator and she was placed back on BiPAP. seems like the BiPAP therapy has not been effective in helping her with her ongoing daytime drowsiness. Therefore the patient did undergo a repeat sleep study. Initially was requested as a split study. But, since the patient already had a positive sleep study in 2013 demonstrating moderate sleep apnea the patient had a titration study at this time. The patient did have an elevated end-tidal CO2 of 57 mm Hg. The patient was titrated and based on the titration measurements the recommendation was switch the patient over to an auto BiPAP. the patient bart modi owns a regular BiPAP that she is had for about a years. At this point the therapy is not effective for her and we will request a auto BiPAP for replacement machine. The patient also was diagnosed with osteopenia and osteoporosis. She is concerned about the inhaled steroids. Currently she is on Bevespi and QVAR. Then after that she will start Trelegy 200 that she has at home. When she completes that then will be reasonable to switch her to the Trelegy 100 to try to minimize inhaled steroids. [facility] Medical History Blood D-dimer assay positive Chronic respiratory failure COPD (chronic obstructive pulmonary disease) Dyspnea Glaucoma Hypogammaglobulinemia Hypothyroidism Menieres disease Obstructive sleep apnea Sore throat Vocal cord dysfunction Surgical History H/O abdominoplasty H/O gastric bypass H/O hemorrhoidectomy H/O inguinal hernia repair History of colon resection History of hip surgery Hx of section Hx of shoulder surgery S/P iridectomy Family History Father COPD (chronic obstructive pulmonary disease) Mother Type 2 diabetes mellitus Hypertension Renal insufficiency Family/Other Colon cancer AIDS Schizophrenia Social History Alcohol intake: current Alcohol intake frequency: does not drink Patient Tobacco Use Status: Never used Tobacco Current occupational status: disabled Review of Systems Const Denies chills, Denies daytime sleepiness, Denies fatigue, Denies fever(s), Denies frequent falls, Denies poor appetite, Denies snoring, Denies stops breathing during sleep, Denies weakness, Denies weight gain and Denies weight loss Eyes Denies loss of vision ENT Denies dizziness, Denies hearing loss and Reports neck pain Card Denies chest pain, Denies claudication, Denies leg edema, Denies lightheadedness, Denies palpitations, Denies dyspnea, Reports dyspnea on exertion and Denies orthopnea Resp Reports cough, Denies excessive phlegm production, Denies dyspnea, Reports dyspnea on exertion, Denies snoring and Denies wheezing GI Denies abdominal pain, Denies hematochezia, Denies change in bowel habits, Denies nausea and Denies vomiting Denies urinary frequency and Denies dysuria Musc Reports back pain, Reports myalgias, Reports arthralgias, Denies muscle weakness and Reports neck pain Skin/Breast Denies nail changes and Denies rash Neuro Denies Abnormal speech present, Denies dizziness, Denies frequent falls, Denies loss of vision, Denies memory loss and Denies weakness Psych Denies depression and Denies memory loss Endo Denies fatigue and Denies palpitations Jewel/Lymph Reports easy bruising and Reports other (anemia) Aller/Immun Denies wheezing Physical Exam Vital Signs: Last Vital Signs Pulse 56 12/29/22 10:24 BP 128/70 12/29/22 10:24 Pulse Ox 100 12/29/22 10:24 Oxygen Delivery Method Room Air 12/29/22 10:24 BMI result Body Mass Index 26.2 Const General: alert Neck Neck: Yes normal visual inspection, Yes full ROM and Yes no lymphadenopathy Chest Chest palpation & inspection: normal inspection of the chest Resp Auscultation: diminished lung sounds Cardio Rate: regular rate Rhythm: regular rhythm Heart sounds: S1 normal heart sound present and S2 normal heart sound present GI Palpation (GI): Soft to palpation and nontender Auscultation: normal bowel sounds Skin General skin exam: rashes and/or lesions noted Neuro Speech: No Abnormal speech present Assessment & Plan Assessment & Plan (1) COPD (chronic obstructive pulmonary disease): Code(s): J44.9 - Chronic obstructive pulmonary disease, unspecified Qualifiers: COPD type: COPD with acute exacerbation Qualified Code(s): J44.1 - Chronic obstructive pulmonary disease with (acute) exacerbation (2) Chronic respiratory failure: Code(s): J96.10 - Chronic respiratory failure, unspecified whether with hypoxia or hypercapnia Qualifiers: Respiratory failure complication: hypoxia and hypercapnia Qualified Code(s): J96.11 - Chronic respiratory failure with hypoxia; J96.12 - Chronic respiratory failure with hypercapnia (3) Hypogammaglobulinemia: Code(s): D80.1 - Nonfamilial hypogammaglobulinemia (4) Dyspnea: Code(s): R06.00 - Dyspnea, unspecified Qualifiers: Dyspnea type: dyspnea on exertion Qualified Code(s): R06.00 - Dyspnea, unspecified (5) Pulmonary hypertension: Comment: Have mild dilation of the pulmonary trunk. Echocardiogram estimates normal pulmonary pressures Code(s): I27.20 - Pulmonary hypertension, unspecified Plan Requesting a replacement autoBIPAP based on her recent sleep study from [facility] IGG therapy continue Stiolto/QVAR, then use Trelegy 200, then decrease to Trelegy 100 follow-up 3-4 months Medications: New doxycycline monohydrate 100 mg PO BID 14 days 28 tabs 0RF prednisone PO daily; Take 6 tabs daily x 3 days, then 5 tabs x 3 days, then 4 tabs x 3 days, then 3 tabs x 3 days, then 2 tabs daily x 3 days, then 1 tab x 3 days to complete. 18 days 63 tabs 0RF Coding Level of Care Code Est Pt Level 4 (06001) Diagnoses COPD (chronic obstructive pulmonary disease) J44.1 COPD type: COPD with acute exacerbation Chronic respiratory failure J96.11; J96.12 Respiratory failure complication: hypoxia and hypercapnia Hypogammaglobulinemia D80.1 Dyspnea R06.00 Dyspnea type: dyspnea on exertion Pulmonary hypertension I27.20 Time Spent (min) 20
[2022-12-29 10:24] VITALS: BP 128/70; PULSE 56; O2SAT 100; BMI 26.2
== END 2022-12-29 10:57 | disposition home or self-care (01) ==
PROVIDERS: PCP Physician Assistant; Visit Provider Hospitalist
DX: J44.1 Chronic obstructive pulmonary disease with (acute) exacerbation (principal); J96.11 Chronic respiratory failure with hypoxia; J96.12 Chronic respiratory failure with hypercapnia; D80.1 Nonfamilial hypogammaglobulinemia; I27.20 Pulmonary hypertension, unspecified
CPT/HCPCS: 99214

== ENCOUNTER → 2022-12-29 10:13 | Outpatient (BNVA) | payer OTHER, SELFPAY | PROVIDERS: PCP Physician Assistant; Visit Provider Hospitalist | DX: J44.1 Chronic obstructive pulmonary disease with (acute) exacerbation (principal); J96.11 Chronic respiratory failure with hypoxia; J96.12 Chronic respiratory failure with hypercapnia; D80.1 Nonfamilial hypogammaglobulinemia; I27.20 Pulmonary hypertension, unspecified; R06.00 Dyspnea, unspecified | CPT/HCPCS: 99212 ==

== ENCOUNTER 2023-02-05 13:34 | Outpatient (AMB) | payer OTHER, SELFPAY ==
--- NOTE | 2023-02-05 13:43 | A.OFFVIS_ITS ---
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 Accompanied by: Self / Same As Patient Allergies ampicillin Allergy (Severe, Verified 02/05/23 13:47) Rash and Hives azithromycin Allergy (Severe, Verified 02/05/23 13:47) Rash/Hives methylprednisolone Allergy (Severe, Verified 02/05/23 13:47) Rash and Hives potassium Allergy (Severe, Verified 02/05/23 13:47) Rash and Hives theophylline Allergy (Severe, Verified 02/05/23 13:47) Rash and Hives aminophylline Allergy (Intermediate, Verified 02/05/23 13:47) Rash and Hives clindamycin Allergy (Intermediate, Verified 02/05/23 13:47) Rash adhesive Allergy (Unknown, Verified 02/05/23 13:47) Rash Polyethylene Glycol Allergy (Severe, Uncoded 12/29/22 10:27) Rash and Hives Tape Allergy (Severe, Uncoded 12/29/22 10:27) Rash and Hives HPI HPI Comments 2 History of Present Illness0 Details Patient presents today for follow up for persistent neck to lower back pain. Denies any recent trauma, injury or falls. Patient also reports widespread diffuse body pain due to fibromyalgia. She reports trying low doses of Lyrica and gabapentin in the past and would like to restart gabapentin. Neck pain with radiation into upper thoracic and between shoulder blades is most concerning to her. Every neck movement causes her pain, stiffness, and spasms. Right neck is worse then left. Denies numbness, tingling, or weakness in her upper extremities. She cannot obtain comfortable positioning or posture while sitting or sleeping. She has been to chiropractic today with minimal pain relief. She has been walking daily with the goal of completing 10,000 steps/day and has been looking into acupunture therapy. Most recent cervical spine xray showed moderate cervical spondylosis with right neural foraminal narrowing. Patient is interested to undergo therapeutic injections for her neck symptoms. She reports ongoing memory issues and has been seeing [facility] and has been scheduled for repeat brain MRI and EEG due to white lesions on her brain. Patient reports she is not interested in PNS trial with [employer] as she lives alone. Denies any recent cough, cold, infection, fever or other significant changes in medical history since last office visit. PRIOR: Patient presents today for follow up for left lower extremity and left sided neck pain. Patient reports she has asymmetrical Chiari I malformation and has upcoming follow up for this with her Neurologist. She reports she has not seen them for 2 years. She reports neck pain with extension and flexion but lateral rotations and side bending are not painful. Neck pain has been worsening for the past 3 months. Denies any trauma, injury or falls. Patient declined formal PT as she has completed PT in the past with minimal to no pain relief. She is trying to maintain good posture. She also reports bone scan showed osteoporosis in lower spine and hips. Patient is also interested to undergo repeat diagnostic left LCFN block for potential RFA procedure. PNS trial was denied by her insurance. Denies any fever, bladder or bowel incontinence or saddle anesthesia. PRIOR: Patient presents today to assess right intra-articular shoulder steroid injection on 08/18/[address] Martines. Patient reports 80% ongoing pain relief status post procedure was notable improvement in right shoulder range of motions, better movements, increased tolerance with overhead reaches and better sleep. Her main pain generator continues to be left hip and thigh pain status post left total hip replacement on 06/26/2020. She responded well to diagnostic and therapeutic left lateral cutaneous femoral nerve blocks although this provided her temporary pain relief. Unfortunately her insurance company denied peripheral neurostimulator trial for left meralgia paresthetica pain. We discussed radiofrequency ablation therapy today and patient will reach out to her insurance company if that is something they are willing to cover. Acute pain in the left lower extremity is daily and increase his walking, standing or climbing stairs. She denies any significant discomfort or pain with sitting position. Denies any fever, bowel or bladder incontinence, or saddle anesthesia. Continues to endorse left lower extremity weakness. Past Procedures: 08/18/22: Right intra-articular shoulder steroid injection-80% pain relief, ongoing 05/27/22: Therapeutic Left Lateral Cutan eous Femoral Nerve Block-80% pain relief for 2 weeks 05/13/22: Diagnostic Left Lateral Cutane ous Femoral Nerve Block-50% pain relief for >48 hours PRIOR: Patient is 61 years old with a history of left total hip replacement on 06/26/2020 at [facility] presents today with left hip and thigh pain since hip surgery. She reports having difficulty moving her left leg after surgery. Reports left lateral and anteromedial hip pain increases with walking, standing, climbing stairs. She cannot cross her left leg over the other leg, has difficulty getting her left foot into or from the car and has to manually lift her left leg. She also has low back pain without radiation to her lower extremity. Reports frequent falls due to left leg pain and weakness. Patient rates her pain as 8-10/10 average intensity and described as constant aching, heavy, tiring, exhausting, spreading, radiating, piercing, hot burning, fearful due to falling, sharp, cutting, lacerating, stabbing and lancinating. Patient reports completing PT and chiropractic manipulation without improvement in her symptoms. Reports cortisone injections through [facility], [facility] and Dr. Hollingsworth office. Her EMG study on 01/16/21 showed mild chronic reinnervation of scattered proximal left leg muscles innervated by different peripheral nerves and nerve roots (iliopsoas and tensor fascia billy). The EMG study did not show acute denervation, peroneal neuropathy at the left fibula or diffuse distal left lower extremity peripheral neuropathy. L2-S1 nerve roots-no abnormal spontaneous activity. Her lumbar spine MRI on 08/01/21 showed variant anatomy with 6 lumbar type vertebral bodies. Chronic L1 compression fracture. Mild degenerative changes with minimal effect upon central canal and neural foramen. No evidence of nerve root constriction. Patient has tried gabapentin, lyrica , cymbalta , soma, nortriptyline, voltaren gel, menthol and more recently was started on Tegretol with minimal to no improvement in her symptoms. Denies any fever, malaise, chills, weight changes, bowel or bladder incontinence, or saddle anesthesia. Ambulates with antalgic gait with mild limping and currently does not use any assistive devices due to right shoulder surgery. Reports left lower extremity weakness. Patient has known history of severe COPD and MARIO and is followed by Dr. Vazquez. She uses BiPAP at night which has been beneficial to her. [facility] Medical History (Updated 02/05/23 @ 14:00 by JENN Owen) Fibromyalgia Hypothyroidism Glaucoma Obstructive sleep apnea Menieres disease Blood D-dimer assay positive Sore throat Vocal cord dysfunction Hypogammaglobulinemia Chronic respiratory failure COPD (chronic obstructive pulmonary disease) Dyspnea Surgical History Hx of shoulder surgery History of hip surgery S/P iridectomy H/O hemorrhoidectomy H/O abdominoplasty H/O inguinal hernia repair H/O gastric bypass History of colon resection Hx of section Family History Father COPD (chronic obstructive pulmonary disease) Mother Type 2 diabetes mellitus Hypertension Renal insufficiency Family/Other Colon cancer AIDS Schizophrenia Social History Alcohol intake: current Alcohol intake frequency: does not drink Patient Tobacco Use Status: Never used Tobacco Current occupational status: disabled Review of Systems Const All systems reviewed & are unremarkable except as noted in HPI and below Physical Exam Vital Signs: Last Vital Signs Pulse 75 02/05/23 13:46 BP 104/51 L 02/05/23 13:46 Pulse Ox 99 02/05/23 13:46 Oxygen Delivery Method Room Air 02/05/23 13:46 BMI result Body Mass Index 26.0 General: Appears afebrile. Alert and oriented. Mood and affect appropriate. Follows and participates in conversation appropriately. Respiratory effort is unlabored. Able to transition from sit to stand unassisted. Neck Neck: Yes full ROM, Yes no lymphadenopathy, Yes supple, No anterior neck swelling and Yes no JVD Back/Spine/Pelvis Other: Multiple widespread TTPs 16/16 bilaterally, including upper and lower extremities. Cervical Spine: No Lhermitte's sign positive, cervical muscular tenderness, pain with cervical ROM, cervical spasm and No Cervical spine tenderness Thoracic/Lumbar Spine: thoracic and lumbar spine normal to inspection, pain with thoraco-lumbar ROM, No thoracic spinal tenderness and lumbar spinal tenderness Results Reviewed Results Reviewed: XR CERVICAL SPINE 10/19/22 CLINICAL INFORMATION: Cervical spondylosis. FINDINGS: Cervical spine is imaged through the level of the superior endplate of C7. There is 2 mm retrolisthesis of C3 on C4. Vertebral body heights are maintained. Moderate intervertebral disc space narrowing at C3-C4 through C5-C6 with right neural foraminal narrowing. Lateral masses are symmetric. Prevertebral soft tissues are within normal limits. IMPRESSION: Moderate cervical spondylosis with right neural foraminal narrowing. Assessment & Plan Assessment & Plan (1) Cervical spondylosis: Code(s): M47.812 - Spondylosis without myelopathy or radiculopathy, cervical region (2) Chronic thoracic back pain: Code(s): M54.6 - Pain in thoracic spine; G89.29 - Other chronic pain (3) Fibromyalgia: Code(s): M79.7 - Fibromyalgia (4) Muscle spasm: Code(s): M62.838 - Other muscle spasm Plan Schedule for Bilateral Diagnostic C4-C5-C6 MBBs with local and fluoroscopy cervical spondylosis. Discussed therapeutic injections, [employer] PNS trial, and cervical medial branch RFA if positive response to nerve blocks. Script provided for gabapentin. Side effects and precautions were discussed with patient. Follow up with [facility] as planned. All questions and concerns have been answered. Follow up for xray results and sooner if needed. Anticoagulation: Patient not on anticoagulant. Justification for interventional therapy: ? Patient with average pain > 6/10 ? Patient has exhausted conservative therapy, NSAIDs, physical therapy The risks, consequences, alternatives, and benefits of various treatment options were discussed with the patient in great detail, including conservative management, injections and procedures. Medications: New 2 gabapentin 300 mg PO TID 30 days 90 caps 0RF pain G89.29 - Other chronic pain, M47.812 - Spondylosis without myelopathy or radiculopathy, cervical region, M54.6 - Pain in thoracic spine, M79.7 - Fibromyalgia Coding Level of Care Code Est Pt Level 4 (44526) Diagnoses Cervical spondylosis M47.812 Chronic thoracic back pain M54.6; G89.29 Fibromyalgia M79.7 Muscle spasm M62.838
[2023-02-05 13:46] VITALS: BP 104/51; PULSE 75; O2SAT 99; BMI 26.0
== END 2023-02-05 14:09 | disposition home or self-care (01) ==
PROVIDERS: PCP Physician Assistant; Visit Provider Nurse Practitioner Family
DX: M47.812 Spondylosis without myelopathy or radiculopathy, cervical region (principal); M54.6 Pain in thoracic spine; G89.29 Other chronic pain; M79.7 Fibromyalgia; M62.838 Other muscle spasm
CPT/HCPCS: 99214

== ENCOUNTER → 2023-02-05 13:34 | Outpatient (BNVA) | payer OTHER, SELFPAY | PROVIDERS: PCP Physician Assistant; Visit Provider Nurse Practitioner Family | DX: M47.812 Spondylosis without myelopathy or radiculopathy, cervical region (principal); M54.6 Pain in thoracic spine; M79.7 Fibromyalgia; M62.838 Other muscle spasm; G89.29 Other chronic pain | CPT/HCPCS: 99212 ==

== ENCOUNTER 2023-03-31 09:09 | Outpatient (REF) | payer OTHER, SELFPAY ==
[2023-03-31 10:06] LABS: MANUAL DIFF FLAG NO
[2023-03-31 10:13] LABS: Venous Blood Gas Refer to POC result
[2023-03-31 10:18] LABS: VBG Base Excess 6.9 mmol/L; VBG HCO3 33 mmol/L (22-26); VBG pCO2 57 mmHg; VBG pH 7.37 (7.32-7.43); VBG pO2 29 mmHg
[2023-03-31 10:23] LABS: Anion Gap 12 (12-20); Blood Urea Nitrogen 22 mg/dL (9-16); Calcium 9.6 mg/dL (8.4-10.2); Carbon Dioxide 29 mmol/L (22-29); Chloride 107 mmol/L (96-108); Estimated Glomerular Filt Rate > 60; Glucose Random 60 mg/dL (60-115); Potassium 3.8 mmol/L (3.3-5.1); Sodium 144 mmol/L (135-145)
[2023-03-31 10:46] LABS: Erythrocyte Sedimentation Rate 19 MM/HR (0-20)
[2023-03-31 10:51] LABS: Basophils Percent Auto 0.7 % (0-2); Eosinophils Absolute Auto 0.3 X10*3/uL (0.0-0.4); Eosinophils Percent Auto 7.3 % (0-4); Hematocrit 34.2 % (37.0-47.0); Hemoglobin 11.7 g/dl (12.0-16.0); Imm Gran Abs Auto 0.01 X10*3/uL (0.00-0.03); Imm Gran Pct Auto 0.2 % (0.0-0.4); Lymphocytes Absolute Auto 1.2 X10*3/uL (1.2-4.9); Lymphocytes Percent Auto 28.2 % (20-40); Mean Corpuscular HGB Conc 34.2 g/dl (31.0-35.0); Mean Corpuscular Hemoglobin 32.1 pg (27.0-33.0); Mean Corpuscular Volume 93.7 fL (80.0-98.0); Mean Platelet Volume 10.3 fL (9.4-12.3); Monocytes Absolute Auto 0.4 X10*3/uL (0.1-1.2); Monocytes Percent Auto 8.9 % (2-11); Neutrophils Absolute Auto 2.4 x10*3/uL (2.0-8.3); Neutrophils Percent Auto 54.7 % (45-73); Platelet Count 166 X10*3/uL (160-400); Red Blood Count 3.65 X10*6/uL (4.20-5.50); Red Cell Distribution Width 12.6 % (11.0-16.0); White Blood Count 4.4 X10*3/uL (4.8-10.8)
[2023-04-01 17:27] LABS: SARS-COV-2 IgG Spike, Semi-Qnt >150.00 index (<1.00)
[2023-04-03 12:43] LABS: IgA 124 mg/dL (70-320); IgG 1518 mg/dL (600-1540); IgM 64 mg/dL (50-300)
== END 2023-03-31 09:10 | disposition home or self-care (01) ==
LOC: HO.LAB 09:09
PROVIDERS: PCP Physician Assistant; Visit Provider Hospitalist
DX: Z11.52 Encounter for screening for COVID-19 (principal); G47.33 Obstructive sleep apnea (adult) (pediatric); D80.1 Nonfamilial hypogammaglobulinemia; J44.1 Chronic obstructive pulmonary disease with (acute) exacerbation; J96.11 Chronic respiratory failure with hypoxia; J96.12 Chronic respiratory failure with hypercapnia
CPT/HCPCS: 36415; 80048; 82784; 82803; 85025; 85652; 86769; 99212

== ENCOUNTER 2023-03-31 09:09 | Outpatient (AMB) | payer OTHER, SELFPAY ==
--- NOTE | 2023-03-31 09:18 | MHC.OFFVIS ---
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: No Allergies ampicillin Allergy (Severe, Verified 03/31/23 09:18) Rash and Hives azithromycin Allergy (Severe, Verified 03/31/23 09:18) Rash/Hives methylprednisolone Allergy (Severe, Verified 03/31/23 09:18) Rash and Hives potassium Allergy (Severe, Verified 03/31/23 09:18) Rash and Hives theophylline Allergy (Severe, Verified 03/31/23 09:18) Rash and Hives aminophylline Allergy (Intermediate, Verified 03/31/23 09:18) Rash and Hives clindamycin Allergy (Intermediate, Verified 03/31/23 09:18) Rash adhesive Allergy (Unknown, Verified 03/31/23 09:18) Rash Polyethylene Glycol Allergy (Severe, Uncoded 03/31/23 09:18) Rash and Hives Tape Allergy (Severe, Uncoded 03/31/23 09:18) Rash and Hives HPI HPI Comments History of Present Illness Details The patient is a 62-year-old woman with a known history of severe COPD in addition to obstructive sleep apnea. The patient continues to using BiPAP at night the BiPAP therapy continues to be affecting beneficial. She has the BiPAP every night for more than 4 hours a night. She has been getting supplies through [facility]. I will request a download to see how effective it is for her. She continues to use her respiratory therapy. She has not required any prednisone. She continues to have significant shortness of breath, moderate severity. She does have oxygen at home that she uses. She is also using her BiPAP pressures /11. The therapy seems to be affecting beneficial. We did download the machine her AHI is down to 3.4. Her average use is more than 6 hours. The therapy appears to be very effective beneficial. She does use a nasal mask although sometimes she does have air leakage issues. She should consider using a fullface mask. Will try [id number] mask at this time. On examination she does have significant wheezing or rhonchi likely from bronchitis and COPD exacerbation. At this time we need to treat this before gets any worse. 12/29/2022 the patient is here for pulmonary follow-up visit. She continues to have daytime drowsiness. Her Stockholm score is elevated 10/24. She does use the BiPAP every night. She also has a history of COPD and chronic hypercarbic respiratory failure. She had been on noninvasive ventilator in the past but then insurance issues resulted in the discontinuation of the noninvasive ventilator and she was placed back on BiPAP. seems like the BiPAP therapy has not been effective in helping her with her ongoing daytime drowsiness. Therefore the patient did undergo a repeat sleep study. Initially was requested as a split study. But, since the patient already had a positive sleep study in 2013 demonstrating moderate sleep apnea the patient had a titration study at this time. The patient did have an elevated end-tidal CO2 of 57 mm Hg. The patient was titrated and based on the titration measurements the recommendation was switch the patient over to an auto BiPAP. the patient currently owns a regular BiPAP that she is had for about a years. At this point the therapy is not effective for her and we will request a auto BiPAP for replacement machine. The patient also was diagnosed with osteopenia and osteoporosis. She is concerned about the inhaled steroids. Currently she is on Bevespi and QVAR. Then after that she will start Trelegy 200 that she has at home. When she completes that then will be reasonable to switch her to the Trelegy 100 to try to minimize inhaled steroids. 03/31/2023 the patient is here for a pulmonary follow-up visit. She did get a new BiPAP. The auto BiPAP does not appear to be working well for her. She still having hard time with breathing. Has a hard time tolerating the pressures. She I did adjust her pressure setting some increasing the pressures overall. In the meantime will also requested a blood gas demonstrating an elevated CO2 of 57 mmHg consistent with chronic hypercarbic respiratory failure. Therefore, seems that she is failing BiPAP does not tolerate the pressures and is not improving her CO2. The patient does have significant COPD and resulting in the chronic hypercarbic respiratory failure. Therefore going back to noninvasive ventilator will improve her gas exchange, improved prognosis and decrease risk some hospitalizations. The patient had been on a noninvasive ventilator previous to the BiPAP and he was she was actually doing a lot better at that time. Therefore we will request her start a trilogy noninvasive ventilator from her [employer] company, [employer] Medical History (Updated 02/05/23 @ 14:00 by JENN Owen) Fibromyalgia Hypothyroidism Glaucoma Obstructive sleep apnea Menieres disease Blood D-dimer assay positive Sore throat Vocal cord dysfunction Hypogammaglobulinemia Chronic respiratory failure COPD (chronic obstructive pulmonary disease) Dyspnea Surgical History Hx of shoulder surgery History of hip surgery S/P iridectomy H/O hemorrhoidectomy H/O abdominoplasty H/O inguinal hernia repair H/O gastric bypass History of colon resection Hx of section Family History Father COPD (chronic obstructive pulmonary disease) Mother Type 2 diabetes mellitus Hypertension Renal insufficiency Family/Other Colon cancer AIDS Schizophrenia Social History Alcohol intake: current Alcohol intake frequency: does not drink Patient Tobacco Use Status: Never used Tobacco Current occupational status: disabled Review of Systems Const Denies chills, Denies daytime sleepiness, Denies fatigue, Denies fever(s), Denies frequent falls, Denies poor appetite, Denies snoring, Denies stops breathing during sleep, Denies weakness, Denies weight gain and Denies weight loss Eyes Denies loss of vision ENT Denies dizziness, Denies hearing loss and Reports neck pain Card Denies chest pain, Denies claudication, Denies leg edema, Denies lightheadedness, Denies palpitations, Denies dyspnea, Reports dyspnea on exertion and Denies orthopnea Resp Reports cough, Denies excessive phlegm production, Denies dyspnea, Reports dyspnea on exertion, Denies snoring and Denies wheezing GI Denies abdominal pain, Denies hematochezia, Denies change in bowel habits, Denies nausea and Denies vomiting Denies urinary frequency and Denies dysuria Musc Reports back pain, Reports myalgias, Reports arthralgias, Denies muscle weakness and Reports neck pain Skin/Breast Denies nail changes and Denies rash Neuro Denies Abnormal speech present, Denies dizziness, Denies frequent falls, Denies loss of vision, Denies memory loss and Denies weakness Psych Denies depression and Denies memory loss Endo Denies fatigue and Denies palpitations Jewel/Lymph Reports easy bruising and Reports other (anemia) Aller/Immun Denies wheezing Physical Exam Vital Signs: Last Vital Signs Pulse 62 03/31/23 09:22 BP 128/60 03/31/23 09:22 Pulse Ox 98 03/31/23 09:22 Oxygen Delivery Method Room Air 03/31/23 09:22 BMI result Body Mass Index 25.7 Const General: alert Neck Neck: Yes normal visual inspection, Yes full ROM and Yes no lymphadenopathy Chest Chest palpation & inspection: normal inspection of the chest Resp Auscultation: diminished lung sounds Cardio Rate: regular rate Rhythm: regular rhythm Heart sounds: S1 normal heart sound present and S2 normal heart sound present GI Palpation (GI): Soft to palpation and nontender Auscultation: normal bowel sounds Skin General skin exam: rashes and/or lesions noted Neuro Speech: No Abnormal speech present Assessment & Plan Assessment & Plan (1) Chronic respiratory failure: Code(s): J96.10 - Chronic respiratory failure, unspecified whether with hypoxia or hypercapnia Qualifiers: Respiratory failure complication: hypoxia and hypercapnia Qualified Code(s): J96.11 - Chronic respiratory failure with hypoxia; J96.12 - Chronic respiratory failure with hypercapnia (2) COPD (chronic obstructive pulmonary disease): Code(s): J44.9 - Chronic obstructive pulmonary disease, unspecified Qualifiers: COPD type: COPD with acute exacerbation Qualified Code(s): J44.1 - Chronic obstructive pulmonary disease with (acute) exacerbation (3) Hypogammaglobulinemia: Code(s): D80.1 - Nonfamilial hypogammaglobulinemia Plan The patient has chronic hypercarbic respiratory failure due to her COPD. She has tried and failed BIPAP. The patient carries a poor prognosis. The patient requires to start a non invasive ventilator to improve gas exchange, improve prognosis and decrease risk for hospitalizations. REC: Start Astral NIV through [facility]. Should return BIPAP Bloodwork continue Trelegy OG as needed continue IgG augmentation therapy through Immunology F/U 2-3 months Orders: Orders Venous Blood Gas Today D80.1 - Nonfamilial hypogammaglobulinemia, J44.9 - Chronic obstructive pulmonary disease, unspecified, J96.10 - Chronic respiratory failure, unspecified whether with hypoxia or hypercapnia Basic Metabolic Panel Today D80.1 - Nonfamilial hypogammaglobulinemia, J44.9 - Chronic obstructive pulmonary disease, unspecified, J96.10 - Chronic respiratory failure, unspecified whether with hypoxia or hypercapnia SARS-COV-2 IgG Adalberto, Semi-Qnt Today J44.9 - Chronic obstructive pulmonary disease, unspecified Complete Blood Count Auto Diff Today D80.1 - Nonfamilial hypogammaglobulinemia, J44.9 - Chronic obstructive pulmonary disease, unspecified, J96.10 - Chronic respiratory failure, unspecified whether with hypoxia or hypercapnia Erythrocyte Sedimentation Rate Today D80.1 - Nonfamilial hypogammaglobulinemia, J44.9 - Chronic obstructive pulmonary disease, unspecified, J96.10 - Chronic respiratory failure, unspecified whether with hypoxia or hypercapnia Immunoglobulins,IgG IgA IgM Today D80.1 - Nonfamilial hypogammaglobulinemia, J44.9 - Chronic obstructive pulmonary disease, unspecified, J96.10 - Chronic respiratory failure, unspecified whether with hypoxia or hypercapnia Coding Level of Care Code Est Pt Level 4 (65177) Diagnoses Chronic respiratory failure with hypoxia and hypercapnia J96.11; J96.12 Respiratory failure complication: hypoxia and hypercapnia Chronic obstructive pulmonary disease with acute exacerbation J44.1 COPD type: COPD with acute exacerbation Hypogammaglobulinemia D80.1 Time Spent (min) 17
[2023-03-31 09:22] VITALS: BP 128/60; PULSE 62; O2SAT 98; BMI 25.7
== END 2023-03-31 09:47 | disposition home or self-care (01) ==
PROVIDERS: PCP Physician Assistant; Visit Provider Hospitalist
DX: J96.11 Chronic respiratory failure with hypoxia (principal); J96.12 Chronic respiratory failure with hypercapnia; J44.1 Chronic obstructive pulmonary disease with (acute) exacerbation; D80.1 Nonfamilial hypogammaglobulinemia
CPT/HCPCS: 99214

== ENCOUNTER 2023-04-02 14:13 | Outpatient (REF) | payer OTHER, SELFPAY ==
--- NOTE | ~2023-04-02 | XR_ITS ---
EXAMINATION: XR LUMBOSACRAL SPINE, XR SACROILIAC JOINT CLINICAL INFORMATION: Reason for Exam M53.3 - Sacrococcygeal disorders, not elsewhere classified COMPARISON: None TECHNIQUE: 5 views of the lumbar spine. 3 views of the sacroiliac joints. FINDINGS: 5 nonrib-bearing lumbar-type vertebral bodies. Chronic T12 wedge compression deformity with approximately 75% loss of height. Grade 1 anterolisthesis of L4 on L5. No pars defects. Mild degenerative disc disease at L4-L5 and at the thoracolumbar junction with loss of disc space height. Lower lumbosacral facet arthropathy. Paravertebral soft tissues are unremarkable. Partially imaged left total hip arthroplasty. Surgical clips in the pelvis. Mesh from prior hernia repair overlies the pelvis. Suture chain material in the expected region of the rectosigmoid colon. Sacroiliac joint spaces are maintained without evidence of sacral fracture. Sacral arcuate lines are intact. Right hip joint space is maintained. XR/XR sacroiliac joint min 3V IMPRESSION: 1. Chronic T12 wedge compression deformity with approximately 75% loss of height. 2. Grade 1 anterolisthesis of L4 on L5. No pars defects. 3. Mild degenerative disc disease at L4-L5 and at the thoracolumbar junction with loss of disc space height. Lower lumbosacral facet arthropathy. 4. Sacroiliac joint spaces are maintained without evidence of sacral fracture.
--- NOTE | ~2023-04-02 | XR_ITS ---
EXAMINATION: XR LUMBOSACRAL SPINE, XR SACROILIAC JOINT CLINICAL INFORMATION: Reason for Exam M53.3 - Sacrococcygeal disorders, not elsewhere classified COMPARISON: None TECHNIQUE: 5 views of the lumbar spine. 3 views of the sacroiliac joints. FINDINGS: 5 nonrib-bearing lumbar-type vertebral bodies. Chronic T12 wedge compression deformity with approximately 75% loss of height. Grade 1 anterolisthesis of L4 on L5. No pars defects. Mild degenerative disc disease at L4-L5 and at the thoracolumbar junction with loss of disc space height. Lower lumbosacral facet arthropathy. Paravertebral soft tissues are unremarkable. Partially imaged left total hip arthroplasty. Surgical clips in the pelvis. Mesh from prior hernia repair overlies the pelvis. Suture chain material in the expected region of the rectosigmoid colon. Sacroiliac joint spaces are maintained without evidence of sacral fracture. Sacral arcuate lines are intact. Right hip joint space is maintained. XR/XR lumbar spine 4V min IMPRESSION: 1. Chronic T12 wedge compression deformity with approximately 75% loss of height. 2. Grade 1 anterolisthesis of L4 on L5. No pars defects. 3. Mild degenerative disc disease at L4-L5 and at the thoracolumbar junction with loss of disc space height. Lower lumbosacral facet arthropathy. 4. Sacroiliac joint spaces are maintained without evidence of sacral fracture.
== END 2023-04-02 14:14 | disposition home or self-care (01) ==
LOC: HO.XRAY 14:13
PROVIDERS: PCP Physician Assistant; Visit Provider Nurse Practitioner Family
DX: M54.50 Low back pain, unspecified (principal); M53.3 Sacrococcygeal disorders, not elsewhere classified; M79.7 Fibromyalgia; M54.6 Pain in thoracic spine; G89.29 Other chronic pain
CPT/HCPCS: 72110; 72202; 99212

== ENCOUNTER 2023-04-02 14:13 | Outpatient (AMB) | payer OTHER, SELFPAY ==
--- NOTE | 2023-04-02 14:19 | A.OFFVIS_ITS ---
Intake Vital Signs 3 04/02/23 14:24 Height 5 ft 3 in BMI Reason not done Patient refused/unable BP 126/58 L Blood Pressure Location Rt brachial Position Sitting Pulse 57 Pulse Source Pulse Oximeter Pulse Oximetry (%) 99 Oxygen Delivery Method Room Air Intake Visit Reasons: Xray Results and talk about Gabapentin Intake Note: Pain today 05/05 General Ophthalmologist Required: No Accompanied by: Self / Same As Patient Allergies ampicillin Allergy (Severe, Verified 04/02/23 14:25) Rash and Hives azithromycin Allergy (Severe, Verified 04/02/23 14:25) Rash/Hives methylprednisolone Allergy (Severe, Verified 04/02/23 14:25) Rash and Hives potassium Allergy (Severe, Verified 04/02/23 14:25) Rash and Hives theophylline Allergy (Severe, Verified 04/02/23 14:25) Rash and Hives aminophylline Allergy (Intermediate, Verified 04/02/23 14:25) Rash and Hives clindamycin Allergy (Intermediate, Verified 04/02/23 14:25) Rash adhesive Allergy (Unknown, Verified 04/02/23 14:25) Rash Polyethylene Glycol Allergy (Severe, Uncoded 03/31/23 09:18) Rash and Hives Tape Allergy (Severe, Uncoded 03/31/23 09:18) Rash and Hives HPI HPI Comments 2 History of Present Illness0 Details Patient presents today for follow up for medication review and ongoing neck and back symptoms. She reports good tolerance with gabapentin without side effects other than slight weight gain. She is interested to increased the dose and take it twice a day, instead of three times per day. She is currently in PT and home exercise program for her neck pain and so far notes minimal improvement. Her back pain is axial with radiation into her left side, left upper buttock and lateral left hip. Pain is worse with walking, weight bearing, prolonged sitting or changing positions. She is interested in interventional treatments for her back and SIJ area. Unfortunately, her current insurance does not approve peripheral nerve stimulation trial for lumbar spondylosis. We will proceed with updating her back xrays and plan for potential diagnostic left SIJ and lumbar MBBs for RFA procedure. Given, previous T12/L1 compression fractures, she will not be a candidate for spine cortisone injections. PRIOR: Patient presents today for follow up for persistent neck to lower back pain. Denies any recent trauma, injury or falls. Patient also reports widespread diffuse body pain due to fibromyalgia. She reports trying low doses of Lyrica and gabapentin in the past and would like to restart gabapentin. Neck pain with radiation into upper thoracic and between shoulder blades is most concerning to her. Every neck movement causes her pain, stiffness, and spasms. Right neck is worse then left. Denies numbness, tingling, or weakness in her upper extremities. She cannot obtain comfortable positioning or posture while sitting or sleeping. She has been to chiropractic today with minimal pain relief. She has been walking daily with the goal of completing 10,000 steps/day and has been looking into acupunture therapy. Most recent cervical spine xray showed moderate cervical spondylosis with right neural foraminal narrowing. Patient is interested to undergo therapeutic injections for her neck symptoms. She reports ongoing memory issues and has been [place] [facility] [place] [facility] and has been scheduled for repeat brain MRI and EEG due to white lesions on her brain. Patient reports she is not interested in PNS trial with [employer] as she lives alone. Denies any recent cough, cold, infection, fever or other significant changes in medical history since last office visit. PRIOR: Patient presents today for follow up for left lower extremity and left sided neck pain. Patient reports she has asymmetrical Chiari I malformation and has upcoming follow up for this with her Neurologist. She reports she has not seen them for 2 years. She reports neck pain with extension and flexion but lateral rotations and side bending are not painful. Neck pain has been worsening for the past 3 months. Denies any trauma, injury or falls. Patient declined formal PT as she has completed PT in the past with minimal to no pain relief. She is trying to maintain good posture. She also reports bone scan showed osteoporosis in lower spine and hips. Patient is also interested to undergo repeat diagnostic left LCFN block for potential RFA procedure. PNS trial was denied by her insurance. Denies any fever, bladder or bowel incontinence or saddle anesthesia. PRIOR: Patient presents today to assess right intra-articular shoulder steroid injection on 08/18/[address] Martines. Patient reports 80% ongoing pain relief status post procedure was notable improvement in right shoulder range of motions, better movements, increased tolerance with overhead reaches and better sleep. Her main pain generator continues to be left hip and thigh pain status post left total hip replacement on 06/26/2020. She responded well to diagnostic and therapeutic left lateral cutaneous femoral nerve blocks although this provided her temporary pain relief. Unfortunately her insurance company denied peripheral neurostimulator trial for left meralgia paresthetica pain. We discussed radiofrequency ablation therapy today and patient will reach out to her insurance company if that is something they are willing to cover. Acute pain in the left lower extremity is daily and increase his walking, standing or climbing stairs. She denies any significant discomfort or pain with sitting position. Denies any fever, bowel or bladder incontinence, or saddle anesthesia. Continues to endorse left lower extremity weakness. Past Procedures: 08/18/22: Right intra-articular shoulder steroid injection-80% pain relief, ongoing 05/27/22: Therapeutic Left Lateral Cutan eous Femoral Nerve Block-80% pain relief for 2 weeks 05/13/22: Diagnostic Left Lateral Cutane ous Femoral Nerve Block-50% pain relief for >48 hours PRIOR: Patient is 61 years old with a history of left total hip replacement on 06/26/2020 at [facility] presents today with left hip and thigh pain since hip surgery. She reports having difficulty moving her left leg after surgery. Reports left lateral and anteromedial hip pain increases with walking, standing, climbing stairs. She cannot cross her left leg over the other leg, has difficulty getting her left foot into or from the car and has to manually lift her left leg. She also has low back pain without radiation to her lower extremity. Reports frequent falls due to left leg pain and weakness. Patient rates her pain as 8-10/10 average intensity and described as constant aching, heavy, tiring, exhausting, spreading, radiating, piercing, hot burning, fearful due to falling, sharp, cutting, lacerating, stabbing and lancinating. Patient reports completing PT and chiropractic manipulation without improvement in her symptoms. Reports cortisone injections through [facility] and Dr. Hollingsworth office. Her EMG study on 01/16/21 showed mild chronic reinnervation of scattered proximal left leg muscles innervated by different peripheral nerves and nerve roots (iliopsoas and tensor fascia billy). The EMG study did not show acute denervation, peroneal neuropathy at the left fibula or diffuse distal left lower extremity peripheral neuropathy. L2-S1 nerve roots-no abnormal spontaneous activity. Her lumbar spine MRI on 08/01/21 showed variant anatomy with 6 lumbar type vertebral bodies. Chronic L1 compression fracture. Mild degenerative changes with minimal effect upon central canal and neural foramen. No evidence of nerve root constriction. Patient has tried gabapentin, lyrica , cymbalta , soma, nortriptyline, voltaren gel, menthol and more recently was started on Tegretol with minimal to no improvement in her symptoms. Denies any fever, malaise, chills, weight changes, bowel or bladder incontinence, or saddle anesthesia. Ambulates with antalgic gait with mild limping and currently does not use any assistive devices due to right shoulder surgery. Reports left lower extremity weakness. Patient has known history of severe COPD and MARIO and is followed by Dr. Vazquez. She uses BiPAP at night which has been beneficial to her. [facility] Medical History (Updated 04/02/23 @ 14:44 by JENN Owen) Fibromyalgia Hypothyroidism Glaucoma Obstructive sleep apnea Menieres disease Blood D-dimer assay positive Sore throat Vocal cord dysfunction Hypogammaglobulinemia Chronic respiratory failure COPD (chronic obstructive pulmonary disease) Dyspnea Surgical History Hx of shoulder surgery History of hip surgery S/P iridectomy H/O hemorrhoidectomy H/O abdominoplasty H/O inguinal hernia repair H/O gastric bypass History of colon resection Hx of section Family History Father COPD (chronic obstructive pulmonary disease) Mother Type 2 diabetes mellitus Hypertension Renal insufficiency Family/Other Colon cancer AIDS Schizophrenia Social History Alcohol intake: current Alcohol intake frequency: does not drink Patient Tobacco Use Status: Never used Tobacco Current occupational status: disabled Review of Systems Const All systems reviewed & are unremarkable except as noted in HPI and below Physical Exam Vital Signs: Last Vital Signs Pulse 57 04/02/23 14:24 BP 126/58 L 04/02/23 14:24 Pulse Ox 99 04/02/23 14:24 Oxygen Delivery Method Room Air 04/02/23 14:24 General: Appears afebrile. Alert and oriented. Mood and affect appropriate. Follows and participates in conversation appropriately. Respiratory effort is unlabored. Able to transition from sit to stand unassisted. Neck Neck: Yes full ROM, Yes no lymphadenopathy, Yes supple, No anterior neck swelling and Yes no JVD Back/Spine/Pelvis Other: Multiple widespread TTPs 16/16 bilaterally, including upper and lower extremities. Painful facet loading bilaterally. Lumbar flexion and extension reproduce mild to moderate pain. Cervical Spine: cervical muscular tenderness, pain with cervical ROM and No Cervical spine tenderness Thoracic/Lumbar Spine: thoracic and lumbar spine normal to inspection, Lasegue's sign negative, straight leg raise negative bilaterally, pain with thoraco-lumbar ROM, paraspinal muscle tenderness, thoraco-lumbar ROM limited, No thoracic spinal tenderness and lumbar spinal tenderness Pelvis: buttock tenderness on the left Sacroiliac joints: on the right nontender and on the left (+Berry's, +Pelvic compression, +SI distraction) tender to palpation Results Reviewed Results Reviewed: XR CERVICAL SPINE 10/19/22 CLINICAL INFORMATION: Cervical spondylosis. FINDINGS: Cervical spine is imaged through the level of the superior endplate of C7. There is 2 mm retrolisthesis of C3 on C4. Vertebral body heights are maintained. Moderate intervertebral disc space narrowing at C3-C4 through C5-C6 with right neural foraminal narrowing. Lateral masses are symmetric. Prevertebral soft tissues are within normal limits. IMPRESSION: Moderate cervical spondylosis with right neural foraminal narrowing. Assessment & Plan Assessment & Plan (1) Lumbar back pain: Code(s): M54.50 - Low back pain, unspecified (2) Sacroiliac joint pain: Code(s): M53.3 - Sacrococcygeal disorders, not elsewhere classified (3) Fibromyalgia: Code(s): M79.7 - Fibromyalgia (4) Chronic thoracic back pain: Code(s): M54.6 - Pain in thoracic spine; G89.29 - Other chronic pain Plan Sacroiliac and lumbar spine imaging to assess degree of degenerative changes, any subluxation, listhesis, compression fractures or pars defects. Patient is interested in interventional treatments for her lower back and left SIJ area. Unfortunately, her current insurance does not approve peripheral nerve stimulation trial for lumbar spondylosis. We will proceed with updating her back xrays and plan for potential diagnostic left SIJ and lumbar MBBs for RFA procedure. Given, previous T12/L1 compression fractures, she will not be a candidate for spine cortisone injections. Will change gabapentin to 800 mg BID, continue to monitor for any side effects and weight gain. All questions and concerns have been answered and patient agreed with the plan. Follow up for xray results and sooner as needed. Orders: Orders 2 XR lumbar spine 4V min Today M53.3 - Sacrococcygeal disorders, not elsewhere classified, M54.50 - Low back pain, unspecified XR sacroiliac joint min 3V Today M53.3 - Sacrococcygeal disorders, not elsewhere classified, M54.50 - Low back pain, unspecified Medications: Changed 2 From gabapentin 400 mg PO TID 30 days 90 caps 3RF pain G89.29 - Other chronic pain, M53.3 - Sacrococcygeal disorders, not elsewhere classified, M54.50 - Low back pain, unspecified, M54.6 - Pain in thoracic spine, M79.7 - Fibromyalgia To gabapentin 800 mg PO BID 30 days 60 tabs 0RF pain G89.29 - Other chronic pain, M53.3 - Sacrococcygeal disorders, not elsewhere classified, M54.50 - Low back pain, unspecified, M54.6 - Pain in thoracic spine, M79.7 - Fibromyalgia Coding Level of Care Code Est Pt Level 4 (02537) Diagnoses Lumbar back pain M54.50 Sacroiliac joint pain M53.3 Fibromyalgia M79.7 Chronic thoracic back pain M54.6; G89.29
[2023-04-02 14:24] VITALS: BP 126/58; PULSE 57; O2SAT 99
== END 2023-04-02 15:06 | disposition home or self-care (01) ==
PROVIDERS: PCP Physician Assistant; Visit Provider Nurse Practitioner Family
DX: G89.29 Other chronic pain (principal); M54.50 Low back pain, unspecified; M53.3 Sacrococcygeal disorders, not elsewhere classified; M79.7 Fibromyalgia; M54.6 Pain in thoracic spine
CPT/HCPCS: 99214

== ENCOUNTER 2023-06-24 06:13 | Outpatient (REF) | payer OTHER, SELFPAY ==
--- NOTE | ~2023-06-24 | FL_ITS ---
CLINICAL INDICATION: Low back pain. FINDINGS: Technical assistance and equipment were provided by the Department of Radiology during intraoperative fluoroscopy for percutaneous lumbar injection. 4, limited fluoroscopic spot images are submitted. A radiologist was not present during the procedure. Images demonstrate the tips of percutaneous needles to project roughly over the expected locations of the nerve roots at L4-S1, bilaterally. The images are available for review on PACS. TOTAL FLUOROSCOPY TIME: 0.3 minutes. DOSE AREA PRODUCT: 0.04 mGy-m2 (milligray-meter squared) FL/FL guidance in treatment room IMPRESSION: Technical assistance and equipment provided by the Department of Radiology during intraoperative fluoroscopy, as above. Please see operative report for further details.
== END 2023-06-24 06:14 | disposition home or self-care (01) ==
LOC: CF 06:13
PROVIDERS: Visit Provider Internal Medicine
DX: M47.816 Spondylosis without myelopathy or radiculopathy, lumbar region (principal); M25.511 Pain in right shoulder; M25.512 Pain in left shoulder
CPT/HCPCS: 64493; 64494; J2795; Q9967

== ENCOUNTER 2023-06-24 10:20 | Outpatient (AMB) | payer OTHER, SELFPAY ==
[2023-06-24 10:37] VITALS: BP 100/52; PULSE 76; RESP 18; O2SAT 100; BMI 25.7
--- NOTE | 2023-06-24 10:37 | MHC.OFFVIS ---
Intake Vital Signs 06/24/23 10:37 06/24/23 11:08 Height 5 ft 3 in Weight 145 lb BMI 25.7 BP 100/52 L 100/62 Blood Pressure Location Lt brachial Lt brachial Position Sitting Sitting Respiration 18 18 Pulse 76 80 Pulse Source Pulse Oximeter Pulse Oximeter Pulse Oximetry (%) 100 98 Oxygen Delivery Method Room Air Room Air Comment Pre-Op Post-Op Intake Visit Reasons: Tye dx L3-L4-DR-L5 MBB Allergies ampicillin Allergy (Severe, Verified 04/02/23 14:25) Rash and Hives azithromycin Allergy (Severe, Verified 04/02/23 14:25) Rash/Hives methylprednisolone Allergy (Severe, Verified 04/02/23 14:25) Rash and Hives potassium Allergy (Severe, Verified 04/02/23 14:25) Rash and Hives theophylline Allergy (Severe, Verified 04/02/23 14:25) Rash and Hives aminophylline Allergy (Intermediate, Verified 04/02/23 14:25) Rash and Hives clindamycin Allergy (Intermediate, Verified 04/02/23 14:25) Rash adhesive Allergy (Unknown, Verified 04/02/23 14:25) Rash Polyethylene Glycol Allergy (Severe, Uncoded 03/31/23 09:18) Rash and Hives Tape Allergy (Severe, Uncoded 03/31/23 09:18) Rash and Hives HPI Tye dx L3-L4-DR-L5 MBB HPI Details Patient presents for scheduled procedure. Denies any recent cough, cold, infection, fever or other significant changes in medical history since last office visit. [facility] Medical History (Updated 06/24/23 @ 10:56 by César Henley MD) Fibromyalgia Hypothyroidism Glaucoma Obstructive sleep apnea Menieres disease Blood D-dimer assay positive Sore throat Vocal cord dysfunction Hypogammaglobulinemia Chronic respiratory failure COPD (chronic obstructive pulmonary disease) Dyspnea Surgical History Hx of shoulder surgery History of hip surgery S/P iridectomy H/O hemorrhoidectomy H/O abdominoplasty H/O inguinal hernia repair H/O gastric bypass History of colon resection Hx of section Family History Father COPD (chronic obstructive pulmonary disease) Mother Type 2 diabetes mellitus Hypertension Renal insufficiency Family/Other Colon cancer AIDS Schizophrenia Social History Alcohol intake: current Alcohol intake frequency: does not drink Patient Tobacco Use Status: Never used Tobacco Current occupational status: disabled Physical Exam Vital Signs: Last Vital Signs Pulse 76 06/24/23 10:37 Resp 18 06/24/23 10:37 BP 100/52 L 06/24/23 10:37 Pulse Ox 100 06/24/23 10:37 Oxygen Delivery Method Room Air 06/24/23 10:37 BMI result Body Mass Index 25.7 Office Procedures Lumbar/Sacral Facet Inj Details: Lumbar Medial Branch Block, Bilateral L3, L4 medial branches and L5 Dorsal Ramus (2 levels, 3 nerves) After obtaining written consent, pre-procedure blood pressure and pulse were recorded and are in the nursing record for review. The patient was placed in a prone position. The respective lumbosacral area was prepped with chloraprep and draped in sterile fashion. The skin over the target medial branch nerves was anesthetized with 0.5% lidocaine. A 22 gauge 3.5 inch needle was inserted into the target medial branch nerve under fluoroscopic guidance. No paresthesias were elicited with needle placement and aspiration was negative for blood and CSF. Next, 0.2cc of omnipaque 180 was injected to verify positioning. Next 0.5 ml 0.5% ropivicaine was injected (0.5cc total per level). The identical procedure was performed at the remaining levels. The skin was cleansed and a sterile bandage was applied. Following the procedure the patient's vital signs were stable. The patient tolerated the procedure well and no complications were encountered. Following the procedure the patient's vital signs were stable. The patient was discharged home in good condition with post-procedural instructions. Time Out: Immediately prior to the procedure, the following was verbally confirmed that there is a signed consent form and that the correct patient, planned procedure, site and side are consistent with documentation and that necessary equipment and/or blood products are available prior to the start of the case. Complications: none EBL: <5 cc 65571 - with Fluoroscopy (bilateral) 40327 - second level, with Fluoroscopy (bilateral) Procedure code (CPT) selection complete Assessment & Plan Assessment & Plan (1) Lumbar spondylosis: Code(s): M47.816 - Spondylosis without myelopathy or radiculopathy, lumbar region Plan Patient is status post bilateral L3, L4, L5 medial branch diagnostic blocks. Patient tolerated procedure well and was discharged home in stable condition with discharge instructions. All questions were answered. We will follow-up via telephone or in clinic to assess response to therapy. A follow-up appointment was made during today's visit. Orders: Orders XR shoulder RT min 2V 06/23/23 M25.511 - Pain in right shoulder, M25.512 - Pain in left shoulder César Henley MD FL guidance in treatment room Today M54.50 - Low back pain, unspecified Zo Fuller APRN, [employer] XR shoulder LT min 2V 06/23/23 M25.511 - Pain in right shoulder, M25.512 - Pain in left shoulder César Henley MD Coding Level of Care Code Procedure Only Diagnoses Lumbar spondylosis M47.816 CPT Codes Facet Injection-Lumbar/Sacral - CPT: 25945 - with Fluoroscopy ([id number]) Facet Injection-Lumbar/Sacral - CPT: 53091 - second level, with Fluoroscopy ([id number])
[2023-06-24 11:08] VITALS: BP 100/62; PULSE 80; RESP 18; O2SAT 98
== END 2023-06-24 11:03 | disposition home or self-care (01) ==
LOC: HO.PMCPRC 10:20
PROVIDERS: PCP Physician Assistant; Visit Provider Internal Medicine
DX: M47.816 Spondylosis without myelopathy or radiculopathy, lumbar region (principal)
CPT/HCPCS: 64493; 64494

== ENCOUNTER 2023-06-28 13:51 | Outpatient (AMB) | payer OTHER, SELFPAY ==
--- NOTE | 2023-06-28 13:53 | A.OFFVIS_ITS ---
Intake Vital Signs 3 06/28/23 13:57 Height 5 ft 3 in Weight 145 lb BMI 25.7 BP 129/63 Blood Pressure Location Rt brachial Position Sitting Pulse 75 Pulse Source Pulse Oximeter Pulse Oximetry (%) 100 Oxygen Delivery Method Room Air Intake Visit Reasons: s/p oscar Dx L3-L4-DR-L5 MBB Intake Note: Pain today 07/03 Vice President Of Instruction Required: No Accompanied by: Self / Same As Patient Allergies ampicillin Allergy (Severe, Verified 06/28/23 13:57) Rash and Hives azithromycin Allergy (Severe, Verified 06/28/23 13:57) Rash/Hives methylprednisolone Allergy (Severe, Verified 06/28/23 13:57) Rash and Hives potassium Allergy (Severe, Verified 06/28/23 13:57) Rash and Hives theophylline Allergy (Severe, Verified 06/28/23 13:57) Rash and Hives aminophylline Allergy (Intermediate, Verified 06/28/23 13:57) Rash and Hives clindamycin Allergy (Intermediate, Verified 06/28/23 13:57) Rash adhesive Allergy (Unknown, Verified 06/28/23 13:57) Rash Polyethylene Glycol Allergy (Severe, Uncoded 03/31/23 09:18) Rash and Hives Tape Allergy (Severe, Uncoded 03/31/23 09:18) Rash and Hives HPI HPI Comments 2 History of Present Illness0 Details Patient presents today to assess response to Bilateral Diagnostic L3-L4- DR L5 MBB on 06/24/[address] Henley. Patient reports less than 40% pain relief since procedure with minimal improvement in her daily functioning, mobility, ADLs and social activities. Patient continues to endorse lower back pain with radiation into her left buttock and lateral hip and anterior thigh. She experiences chronic left anterior thigh pain with weakness s/p left total hip replacement on 06/26/2020. She had good but temporary relief with left LFCN blocks last year. Patient has completed numerous courses of physical therapy, continues with HEP and chiropractic adjustments with continued symptoms. She takes gabapentin with good tolerance and without any side effects. We will proceed with left therapeutic sacroiliac joint injection as next steps. Peripheral nerve stimulation and RFA procedures have been previously denies by patient's insurance. Denies any fever, bowel or bladder incontinence, or saddle anesthesia. Continues to endorse left lower extremity weakness. Past Procedures: 06/24/23: Bilateral Diagnostic L3-L4- DR L5 MBB-<40% pain relief 08/18/22: Right intra-articular shoulder steroid injection-80% pain relief, ongoing 05/27/22: Therapeutic Left Lateral Cutan eous Femoral Nerve Block-80% pain relief for 2 weeks 05/13/22: Diagnostic Left Lateral Cutane ous Femoral Nerve Block-50% pain relief for >48 hours PRIOR: Patient is 61 years old with a history of left total hip replacement on 06/26/2020 at [facility] presents today with left hip and thigh pain since hip surgery. She reports having difficulty moving her left leg after surgery. Reports left lateral and anteromedial hip pain increases with walking, standing, climbing stairs. She cannot cross her left leg over the other leg, has difficulty getting her left foot into or from the car and has to manually lift her left leg. She also has low back pain without radiation to her lower extremity. Reports frequent falls due to left leg pain and weakness. Patient rates her pain as 8-10/10 average intensity and described as constant aching, heavy, tiring, exhausting, spreading, radiating, piercing, hot burning, fearful due to falling, sharp, cutting, lacerating, stabbing and lancinating. Patient reports completing PT and chiropractic manipulation without improvement in her symptoms. Reports cortisone injections through [facility], [facility] and Dr. Hollingsworth office. Her EMG study on 01/16/21 showed mild chronic reinnervation of scattered proximal left leg muscles innervated by different peripheral nerves and nerve roots (iliopsoas and tensor fascia billy). The EMG study did not show acute denervation, peroneal neuropathy at the left fibula or diffuse distal left lower extremity peripheral neuropathy. L2-S1 nerve roots-no abnormal spontaneous activity. Her lumbar spine MRI on 08/01/21 showed variant anatomy with 6 lumbar type vertebral bodies. Chronic L1 compression fracture. Mild degenerative changes with minimal effect upon central canal and neural foramen. No evidence of nerve root constriction. Patient has tried gabapentin, lyrica , cymbalta , soma, nortriptyline, voltaren gel, menthol and more recently was started on Tegretol with minimal to no improvement in her symptoms. Denies any fever, malaise, chills, weight changes, bowel or bladder incontinence, or saddle anesthesia. Ambulates with antalgic gait with mild limping and currently does not use any assistive devices due to right shoulder surgery. Reports left lower extremity weakness. Patient has known history of severe COPD and MARIO and is followed by Dr. Vazquez. She uses BiPAP at night which has been beneficial to her. [facility] Medical History Fibromyalgia Hypothyroidism Glaucoma Obstructive sleep apnea Menieres disease Blood D-dimer assay positive Sore throat Vocal cord dysfunction Hypogammaglobulinemia Chronic respiratory failure COPD (chronic obstructive pulmonary disease) Dyspnea Surgical History Hx of shoulder surgery History of hip surgery S/P iridectomy H/O hemorrhoidectomy H/O abdominoplasty H/O inguinal hernia repair H/O gastric bypass History of colon resection Hx of section Family History Father COPD (chronic obstructive pulmonary disease) Mother Type 2 diabetes mellitus Hypertension Renal insufficiency Family/Other Colon cancer AIDS Schizophrenia Social History Alcohol intake: current Alcohol intake frequency: does not drink Patient Tobacco Use Status: Never used Tobacco Current occupational status: disabled Review of Systems Const All systems reviewed & are unremarkable except as noted in HPI and below Physical Exam Vital Signs: Last Vital Signs Pulse 75 06/28/23 13:57 BP 129/63 06/28/23 13:57 Pulse Ox 100 06/28/23 13:57 Oxygen Delivery Method Room Air 06/28/23 13:57 BMI result Body Mass Index 25.7 General: Appears afebrile. Alert and oriented. Mood and affect appropriate. Follows and participates in conversation appropriately. Respiratory effort is unlabored. Able to transition from sit to stand unassisted. Neck Neck: Yes full ROM, Yes no lymphadenopathy, Yes supple, No anterior neck swelling and Yes no JVD Back/Spine/Pelvis Other: Multiple widespread TTPs 16/16 bilaterally, including upper and lower extremities. Painful facet loading bilaterally. Lumbar flexion and extension reproduce mild to moderate pain. Cervical Spine: cervical ROM normal and No Cervical spine tenderness Thoracic/Lumbar Spine: thoracic and lumbar spine normal to inspection, Lasegue's sign negative, straight leg raise negative bilaterally, pain with thoraco-lumbar ROM, paraspinal muscle tenderness, thoraco-lumbar ROM limited, No thoracic spinal tenderness and lumbar spinal tenderness Pelvis: buttock tenderness on the left Sacroiliac joints: on the right nontender and on the left (+Berry's, +Pelvic compression, +SI distraction, +Gaenslen) tender to palpation Results Reviewed Results Reviewed: XR CERVICAL SPINE 10/19/22 CLINICAL INFORMATION: Cervical spondylosis. FINDINGS: Cervical spine is imaged through the level of the superior endplate of C7. There is 2 mm retrolisthesis of C3 on C4. Vertebral body heights are maintained. Moderate intervertebral disc space narrowing at C3-C4 through C5-C6 with right neural foraminal narrowing. Lateral masses are symmetric. Prevertebral soft tissues are within normal limits. IMPRESSION: Moderate cervical spondylosis with right neural foraminal narrowing. Assessment & Plan Assessment & Plan (1) Sacroiliac joint pain: Code(s): M53.3 - Sacrococcygeal disorders, not elsewhere classified (2) Fibromyalgia: Code(s): M79.7 - Fibromyalgia (3) Muscle spasm: Code(s): M62.838 - Other muscle spasm (4) Lumbar spondylosis: Code(s): M47.816 - Spondylosis without myelopathy or radiculopathy, lumbar region Plan Schedule for Left Therapeutic Sacroiliac Joint Injection with local and fluoroscopy for left SIJ pain with positive provocative testing. Peripheral nerve stimulation and RFA procedures have been previously denies by patient's insurance. We also discussed SI joint stabilization with fusion. Continue gabapentin, no refills needed at this time. All questions and concerns have been answered. Follow up after injections and sooner if needed. Anticoagulation: Patient not on anticoagulant. Justification for interventional therapy: ? Patient with average pain > 6/10 ? Patient has exhausted conservative therapy, NSAIDs, physical therapy, chiropractic therapy The risks, consequences, alternatives, and benefits of various treatment options were discussed with the patient in great detail, including conservative management, injections and procedures. Patient is aware of hyperglycemic effects of steroids. Coding Level of Care Code Est Pt Level 4 (43638) Diagnoses Sacroiliac joint pain M53.3 Fibromyalgia M79.7 Muscle spasm M62.838 Lumbar spondylosis M47.816
[2023-06-28 13:57] VITALS: BP 129/63; PULSE 75; O2SAT 100; BMI 25.7
== END 2023-06-28 14:13 | disposition home or self-care (01) ==
PROVIDERS: PCP Physician Assistant; Visit Provider Nurse Practitioner Family
DX: M53.3 Sacrococcygeal disorders, not elsewhere classified (principal); M79.7 Fibromyalgia; M62.838 Other muscle spasm; M47.816 Spondylosis without myelopathy or radiculopathy, lumbar region
CPT/HCPCS: 99214

== ENCOUNTER → 2023-06-28 13:51 | Outpatient (BNVA) | payer OTHER, SELFPAY | PROVIDERS: PCP Physician Assistant; Visit Provider Nurse Practitioner Family | DX: M53.3 Sacrococcygeal disorders, not elsewhere classified (principal); M79.7 Fibromyalgia; M62.838 Other muscle spasm; M47.816 Spondylosis without myelopathy or radiculopathy, lumbar region | CPT/HCPCS: 99212 ==

== ENCOUNTER 2023-07-13 09:42 | Outpatient (AMB) | payer OTHER, SELFPAY ==
[2023-07-13 09:53] VITALS: PULSE 67; O2SAT 99; BMI 25.7
--- NOTE | 2023-07-13 09:53 | A.OFFVIS_ITS ---
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: No Allergies ampicillin Allergy (Severe, Verified 07/13/23 09:55) Rash and Hives azithromycin Allergy (Severe, Verified 07/13/23 09:55) Rash/Hives methylprednisolone Allergy (Severe, Verified 07/13/23 09:55) Rash and Hives potassium Allergy (Severe, Verified 07/13/23 09:55) Rash and Hives theophylline Allergy (Severe, Verified 07/13/23 09:55) Rash and Hives aminophylline Allergy (Intermediate, Verified 07/13/23 09:55) Rash and Hives clindamycin Allergy (Intermediate, Verified 07/13/23 09:55) Rash adhesive Allergy (Unknown, Verified 07/13/23 09:55) Rash Polyethylene Glycol Allergy (Severe, Uncoded 07/13/23 09:55) Rash and Hives Tape Allergy (Severe, Uncoded 07/13/23 09:55) Rash and Hives HPI HPI Comments History of Present Illness Details The patient is a 62-year-old woman with a known history of severe COPD in addition to obstructive sleep apnea. The patient continues to using BiPAP at night the BiPAP therapy continues to be affecting beneficial. She has the BiPAP every night for more than 4 hours a night. [facility] I will request a download to see how effective it is for her. She continues to use her respiratory therapy. She has not required any prednisone. She continues to have significant shortness of breath, moderate severity. She does have oxygen at home that she uses. She is also using her BiPAP pressures 18/11. The therapy seems to be affecting beneficial. We did download the machine her AHI is down to 3.4. Her average use is more than 6 hours. The therapy appears to be very effective beneficial. She does use a nasal mask although sometimes she does have air leakage issues. She should consider using a fullface mask. Will try [id number] mask at this time. On examination she does have significant wheezing or rhonchi likely from bronchitis and COPD exacerbation. At this time we need to treat this before gets any worse. 12/29/2022 the patient is here for pulmona ry follow-up visit. She continues to have daytime drowsiness. Her [place] score is elevated 10/24. She does use the BiPAP every night. She also has a history of COPD and chronic hypercarbic respiratory failure. She had been on noninvasive ventilator in the past but then insurance issues resulted in the discontinuation of the noninvasive ventilator and she was placed back on BiPAP. seems like the BiPAP therapy has not been effective in helping her with her ongoing daytime drowsiness. Therefore the patient did undergo a repeat sleep study. Initially was requested as a split study. But, since the patient already had a positive sleep study in 2013 demonstrating moderate sleep apnea the patient had a titration study at this time. The patient did have an elevated end-tidal CO2 of 57 mm Hg. The patient was titrated and based on the titration measurements the recommendation was switch the patient over to an auto BiPAP. the patient currently owns a regular BiPAP that she is had for about a years. At this point the therapy is not effective for her and we will request a auto BiPAP for replacement machine. The patient also was diagnosed with osteopenia and osteoporosis. She is concerned about the inhaled steroids. Currently she is on Bevespi and QVAR. Then after that she will start Trelegy 200 that she has at home. When she completes that then will be reasonable to switch her to the Trelegy 100 to try to minimize inhaled steroids. 03/31/2023 the patient is here for a pulm onary follow-up visit. She did get a new BiPAP. The auto BiPAP does not appear to be working well for her. She still having hard time with breathing. Has a hard time tolerating the pressures. She I did adjust her pressure setting some increasing the pressures overall. In the meantime will also requested a blood gas demonstrating an elevated CO2 of 57 mmHg consistent with chronic hypercarbic respiratory failure. Therefore, seems that she is failing BiPAP does not tolerate the pressures and is not improving her CO2. The patient does have significant COPD and resulting in the chronic hypercarbic respiratory failure. Therefore going back to noninvasive ventilator will improve her gas exchange, improved prognosis and decrease risk some hospitalizations. The patient had been on a noninvasive ventilator previous to the BiPAP and he was she was actually doing a lot better at that time. Therefore we will request her start a trilogy noninvasive ventilator from her [employer], [employer]. 07/13/2023 the patient is here for a pulm onary follow-up visit. The patient has been doing fairly okay. She did which over to an astral noninvasive ventilator in view of her hypercarbia. Although she is having hard time adjusting. She feels that she has getting a lot of gas pain. I did decrease the tidal volume to around 440 and also decrease her respiratory rate down from 15 to 13. I am hoping that this is enough. Otherwise will continue to adjust the machine accordingly. Will also have her repeat the blood gas on before the next visit in 3-4 months. The patient has been using her Trelegy inhaler with good effect. She continues use her respiratory therapy as well. She continues to have shortness breath with activity which explained to her is typical of her underlying obstructive airway disease. She is having hard time sleeping. Will go ahead and start her on small dose of Ambien in order for her to sleep better and tolerate her noninvasive ventilator. [facility] Medical History Fibromyalgia Hypothyroidism Glaucoma Obstructive sleep apnea Menieres disease Blood D-dimer assay positive Sore throat Vocal cord dysfunction Hypogammaglobulinemia Chronic respiratory failure COPD (chronic obstructive pulmonary disease) Dyspnea Surgical History Hx of shoulder surgery History of hip surgery S/P iridectomy H/O hemorrhoidectomy H/O abdominoplasty H/O inguinal hernia repair H/O gastric bypass History of colon resection Hx of section Family History Father COPD (chronic obstructive pulmonary disease) Mother Type 2 diabetes mellitus Hypertension Renal insufficiency Family/Other Colon cancer AIDS Schizophrenia Social History Alcohol intake: current Alcohol intake frequency: does not drink Patient Tobacco Use Status: Never used Tobacco Current occupational status: disabled Review of Systems Const Denies fever(s) and Denies weakness Card Denies chest pain and Reports dyspnea on exertion Resp Reports cough, Denies excessive phlegm production and Reports dyspnea on exertion GI Denies abdominal pain Musc Reports back pain Skin/Breast Denies rash Neuro Denies Abnormal speech present and Denies weakness Physical Exam Vital Signs: Last Vital Signs Pulse 67 07/13/23 09:53 Pulse Ox 99 07/13/23 09:53 Oxygen Delivery Method Room Air 07/13/23 09:53 BMI result Body Mass Index 25.7 Const General: alert Neck Neck: Yes normal visual inspection, Yes full ROM and Yes no lymphadenopathy Chest Chest palpation & inspection: normal inspection of the chest Resp Effort & Inspection: prolonged expiratory phase Auscultation: diminished lung sounds Cardio Rate: regular rate Rhythm: regular rhythm Heart sounds: S1 normal heart sound present and S2 normal heart sound present GI Palpation (GI): Soft to palpation and nontender Auscultation: normal bowel sounds Skin General skin exam: rashes and/or lesions noted Neuro Speech: No Abnormal speech present Assessment & Plan Assessment & Plan (1) Chronic respiratory failure: Code(s): J96.10 - Chronic respiratory failure, unspecified whether with hypoxia or hypercapnia Qualifiers: Respiratory failure complication: hypoxia and hypercapnia Qualified Code(s): J96.11 - Chronic respiratory failure with hypoxia; J96.12 - Chronic respiratory failure with hypercapnia (2) COPD (chronic obstructive pulmonary disease): Code(s): J44.9 - Chronic obstructive pulmonary disease, unspecified Qualifiers: COPD type: COPD with acute exacerbation Qualified Code(s): J44.1 - Chronic obstructive pulmonary disease with (acute) exacerbation (3) Hypogammaglobulinemia: Code(s): D80.1 - Nonfamilial hypogammaglobulinemia Plan continue Astral NIV through [facility]. Should return BIPAP, adjusted RR to 12 and decrease VT 500 to 440 continue Trelegy OG as needed continue IgG augmentation therapy through Immunology Overnight oximetry on Astral ([facility]) repeat VBG for next visit F/U 2-3 months Orders: Orders Alpha 1 Anti-trypsin Today J44.9 - Chronic obstructive pulmonary disease, unspecified, J96.10 - Chronic respiratory failure, unspecified whether with hypoxia or hypercapnia Overnight Pulse Oximetry Today J44.9 - Chronic obstructive pulmonary disease, unspecified Venous Blood Gas Today J44.9 - Chronic obstructive pulmonary disease, unspecified, J96.10 - Chronic respiratory failure, unspecified whether with hypoxia or hypercapnia Basic Metabolic Panel Today J44.9 - Chronic obstructive pulmonary disease, unspecified, J96.10 - Chronic respiratory failure, unspecified whether with hypoxia or hypercapnia Complete Blood Count Auto Diff Today J44.9 - Chronic obstructive pulmonary disease, unspecified, J96.10 - Chronic respiratory failure, unspecified whether with hypoxia or hypercapnia Medications: New zolpidem 5 mg PO BEDTIME PRN 30 tabs 5RF sleep 30 days Coding Level of Care Code Est Pt Level 4 (44346) Diagnoses Chronic respiratory failure with hypoxia and hypercapnia J96.11; J96.12 Respiratory failure complication: hypoxia and hypercapnia Chronic obstructive pulmonary disease with acute exacerbation J44.1 COPD type: COPD with acute exacerbation Hypogammaglobulinemia D80.1 Time Spent (min) 18
== END 2023-07-13 10:31 | disposition home or self-care (01) ==
PROVIDERS: PCP Physician Assistant; Visit Provider Hospitalist
DX: J96.11 Chronic respiratory failure with hypoxia (principal); J96.12 Chronic respiratory failure with hypercapnia; J44.1 Chronic obstructive pulmonary disease with (acute) exacerbation; D80.1 Nonfamilial hypogammaglobulinemia
CPT/HCPCS: 99214

== ENCOUNTER → 2023-07-13 09:42 | Outpatient (BNVA) | payer OTHER, SELFPAY | PROVIDERS: PCP Physician Assistant; Visit Provider Hospitalist | DX: J96.12 Chronic respiratory failure with hypercapnia (principal); J96.11 Chronic respiratory failure with hypoxia; J44.1 Chronic obstructive pulmonary disease with (acute) exacerbation; G47.33 Obstructive sleep apnea (adult) (pediatric); D80.1 Nonfamilial hypogammaglobulinemia; Z99.89 Dependence on other enabling machines and devices; Z99.81 Dependence on supplemental oxygen | CPT/HCPCS: 99212 ==

== ENCOUNTER 2023-07-22 07:30 | Outpatient (REF) | payer OTHER, SELFPAY ==
--- NOTE | ~2023-07-22 | FL_ITS ---
EXAMINATION: XR FLUOROSCOPY WITH IMAGES CLINICAL INFORMATION: Sacrococcygeal disorders, not elsewhere classified. COMPARISON: Sacroiliac joint radiographs dated 04/08/2023. TECHNIQUE: Fluoroscopy Supervised By: Dr. Zo Fuller. Fluoroscopy Time: 0.1. Cumulative Dose: 1.29 mGy. DAP: 0.120 mGym2. Images: 2. FINDINGS: The submitted images show an injection needle directed into the the vicinity of the left sacroiliac joint. FL/FL guidance in treatment room IMPRESSION: Intraoperative fluoroscopic guidance is provided during left sacroiliac joint pain management procedure. Please see the patient's Operative Report for full procedural details.
== END 2023-07-22 07:31 | disposition home or self-care (01) ==
LOC: CF 07:30
PROVIDERS: Visit Provider Internal Medicine
DX: M53.3 Sacrococcygeal disorders, not elsewhere classified (principal)
CPT/HCPCS: 27096; J2795; J3301

== ENCOUNTER 2023-07-22 12:50 | Outpatient (AMB) | payer OTHER, SELFPAY ==
[2023-07-22 12:59] VITALS: BP 106/64; PULSE 86; O2SAT 99; BMI 25.7
--- NOTE | 2023-07-22 12:59 | MHC.OFFVIS ---
Intake Vital Signs 07/22/23 12:59 07/22/23 13:24 Height 5 ft 3 in Weight 145 lb BMI 25.7 BP 106/64 Blood Pressure Location Lt brachial Position Sitting Sitting Respiration 18 Pulse 86 84 Pulse Source Pulse Oximeter Pulse Oximeter Pulse Oximetry (%) 99 97 Oxygen Delivery Method Room Air Room Air Comment Pre-Op Post-Op Intake Visit Reasons: Left theraputic SIJ inj Allergies ampicillin Allergy (Severe, Verified 07/13/23 09:55) Rash and Hives azithromycin Allergy (Severe, Verified 07/13/23 09:55) Rash/Hives methylprednisolone Allergy (Severe, Verified 07/13/23 09:55) Rash and Hives potassium Allergy (Severe, Verified 07/13/23 09:55) Rash and Hives theophylline Allergy (Severe, Verified 07/13/23 09:55) Rash and Hives aminophylline Allergy (Intermediate, Verified 07/13/23 09:55) Rash and Hives clindamycin Allergy (Intermediate, Verified 07/13/23 09:55) Rash adhesive Allergy (Unknown, Verified 07/13/23 09:55) Rash Polyethylene Glycol Allergy (Severe, Uncoded 07/13/23 09:55) Rash and Hives Tape Allergy (Severe, Uncoded 07/13/23 09:55) Rash and Hives HPI Left theraputic SIJ inj HPI Details Patient presents for scheduled procedure. Denies any recent cough, cold, infection, fever or other significant changes in medical history since last office visit. [facility] Medical History Fibromyalgia Hypothyroidism Glaucoma Obstructive sleep apnea Menieres disease Blood D-dimer assay positive Sore throat Vocal cord dysfunction Hypogammaglobulinemia Chronic respiratory failure COPD (chronic obstructive pulmonary disease) Dyspnea Surgical History Hx of shoulder surgery History of hip surgery S/P iridectomy H/O hemorrhoidectomy H/O abdominoplasty H/O inguinal hernia repair H/O gastric bypass History of colon resection Hx of section Family History Father COPD (chronic obstructive pulmonary disease) Mother Type 2 diabetes mellitus Hypertension Renal insufficiency Family/Other Colon cancer AIDS Schizophrenia Social History Alcohol intake: current Alcohol intake frequency: does not drink Patient Tobacco Use Status: Never used Tobacco Current occupational status: disabled Physical Exam Vital Signs: Last Vital Signs Pulse 86 07/22/23 12:59 BP 106/64 07/22/23 12:59 Pulse Ox 99 07/22/23 12:59 Oxygen Delivery Method Room Air 07/22/23 12:59 BMI result Body Mass Index 25.7 Office Procedures Joint Injection/Drain Joint Injection/Drain Details: Sacroiliac Joint Injection, Left The procedure, its benefits, and its risks were explained and written informed consent was obtained from the patient. Immediately prior to starting the procedure, a time-out safety check was conducted. The patient's identification, procedure name, procedure site, and procedure laterality were confirmed with the patient. ? Patient was placed prone on the fluoroscopy table and the lumbosacral area was prepped using ChloraPrep and draped with sterile drapein standard fashion. The C-arm was rotated in a contralateral oblique fashion until the medial border of the iliac crest no longer foreshadowed the posterior sacroiliac joint line. The skin and subcutaneous tissue was anesthetized using 1 mL of 0.75% plain lidocaine with 1.5-inch 25-gauge needle in the middle region of the joint line.?A 3.5-inch 22-gauge spinal needle with small bend on the tip was slowly advanced towards the joint line, coaxial to the x-ray beam. Once bony content was obtained, the needle was easily slid into the intra-articular space.? Intra-articular needle position was confirmed using lateral fluoroscopy.? A total volume of 2.5mL of solution containing 40 mg triamcinolone and rest 0.5% of ropivacaine was injected intra-articularly. The stylet was reinserted and needle was removed. The patient tolerated the procedure well. Patient denied any lower extremity weakness or numbness. Patient was observed for 30 min and was discharged after fulfilling the standard discharge criteria. Coding 06159 - Sacroiliac Procedure code (CPT) selection complete Assessment & Plan Assessment & Plan (1) Sacroiliac joint pain: Code(s): M53.3 - Sacrococcygeal disorders, not elsewhere classified Plan Patient is status post left intra-articular sacroiliac joint injection. Patient tolerated procedure well and was discharged home in stable condition with discharge instructions. All questions were answered. We will follow-up via telephone or in clinic to assess response to therapy. A follow-up appointment was made during today's visit. Orders: Orders FL guidance in treatment room Today M53.3 - Sacrococcygeal disorders, not elsewhere classified Coding Level of Care Code Procedure Only Diagnoses Sacroiliac joint pain M53.3 CPT Codes Coding - Joint 9: 69293 - Sacroiliac ([id number])
[2023-07-22 13:24] VITALS: PULSE 84; RESP 18; O2SAT 97
== END 2023-07-22 13:25 | disposition home or self-care (01) ==
LOC: HO.PMCPRC 12:50
PROVIDERS: PCP Physician Assistant; Visit Provider Internal Medicine
DX: M53.3 Sacrococcygeal disorders, not elsewhere classified (principal)
CPT/HCPCS: 27096

== ENCOUNTER 2023-08-19 09:53 | Outpatient (AMB) | payer OTHER, SELFPAY ==
--- NOTE | 2023-08-19 09:55 | MHC.OFFVIS ---
Vital Signs 08/19/23 10:02 Height 5 ft 3 in BMI Reason not done Patient refused/unable BP 146/74 H Blood Pressure Location Rt brachial Position Sitting Pulse 71 Pulse Source Pulse Oximeter Pulse Oximetry (%) 99 Oxygen Delivery Method Room Air Intake Visit Reasons: s/p Left theraputic SIJ inj Intake Note: Pain today 07/03 Mobile Ui Developer Required: No Accompanied by: Self / Same As Patient Allergies ampicillin Allergy (Severe, Verified 08/19/23 10:03) Rash and Hives azithromycin Allergy (Severe, Verified 08/19/23 10:03) Rash/Hives methylprednisolone Allergy (Severe, Verified 08/19/23 10:03) Rash and Hives potassium Allergy (Severe, Verified 08/19/23 10:03) Rash and Hives theophylline Allergy (Severe, Verified 08/19/23 10:03) Rash and Hives aminophylline Allergy (Intermediate, Verified 08/19/23 10:03) Rash and Hives clindamycin Allergy (Intermediate, Verified 08/19/23 10:03) Rash adhesive Allergy (Unknown, Verified 08/19/23 10:03) Rash Polyethylene Glycol Allergy (Severe, Uncoded 07/13/23 09:55) Rash and Hives Tape Allergy (Severe, Uncoded 07/13/23 09:55) Rash and Hives HPI Comments Details: Patient presents today to assess response to Left Therapeutic Sacroiliac Joint Injectoin on 07/22/[address] Henley. Patient reports 70-80% pain relief since procedure in the projection of left sided low back and left sacral area. Reports partial improvement in her daily functioning, mobility, ADLs and social activities. Patient suffers from chronic left anterior thigh pain with weakness s/p left total hip replacement on 06/26/2020 which affects her sleep. She had good but temporary relief with left LFCN blocks last year. Patient has completed numerous courses of physical therapy, continues with HEP and chiropractic adjustments with continued symptoms. She presents with mild leg discrepancy and will return to her Chiropractor for adjustment. Patient also has localized tenderness in the projection of left greater trochanteric bursa. Reports weight gain with gabapentin but good tolerance. She considers switching to pregabalin. Denies any fever, bowel or bladder incontinence, or saddle anesthesia. Continues to endorse left lower extremity weakness. Past Procedures: 07/22/23: Left Therapeutic SIJ hclswckea-45-24% ongoing pain relief 06/24/23: Bilateral Diagnostic L3-L4- DR L5 MBB-<40% pain relief 08/18/22: Right intra-articular shoulder steroid injection-80% pain relief, ongoing 05/27/22: Therapeutic Left Lateral Cutaneous Femoral Nerve Block-80% pain relief for 2 weeks 05/13/22: Diagnostic Left Lateral Cutaneous Femoral Nerve Block-50% pain relief for >48 hours PRIOR: Patient is 61 years old with a history of left total hip replacement on 06/26/2020 at [facility] presents today with left hip and thigh pain since hip surgery. She reports having difficulty moving her left leg after surgery. Reports left lateral and anteromedial hip pain increases with walking, standing, climbing stairs. She cannot cross her left leg over the other leg, has difficulty getting her left foot into or from the car and has to manually lift her left leg. She also has low back pain without radiation to her lower extremity. Reports frequent falls due to left leg pain and weakness. Patient rates her pain as 8-10/10 average intensity and described as constant aching, heavy, tiring, exhausting, spreading, radiating, piercing, hot burning, fearful due to falling, sharp, cutting, lacerating, stabbing and lancinating. Patient reports completing PT and chiropractic manipulation without improvement in her symptoms. Reports cortisone injections through [facility], [facility] and Dr. Hollingsworth office. Her EMG study on 01/16/21 showed mild chronic reinnervation of scattered proximal left leg muscles innervated by different peripheral nerves and nerve roots (iliopsoas and tensor fascia billy). The EMG study did not show acute denervation, peroneal neuropathy at the left fibula or diffuse distal left lower extremity peripheral neuropathy. L2-S1 nerve roots-no abnormal spontaneous activity. Her lumbar spine MRI on 08/01/21 showed variant anatomy with 6 lumbar type vertebral bodies. Chronic L1 compression fracture. Mild degenerative changes with minimal effect upon central canal and neural foramen. No evidence of nerve root constriction. Patient has tried gabapentin, lyrica , cymbalta , soma, nortriptyline, voltaren gel, menthol and more recently was started on Tegretol with minimal to no improvement in her symptoms. Denies any fever, malaise, chills, weight changes, bowel or bladder incontinence, or saddle anesthesia. Ambulates with antalgic gait with mild limping and currently does not use any assistive devices due to right shoulder surgery. Reports left lower extremity weakness. Patient has known history of severe COPD and MARIO and is followed by Dr. Vazquez. She uses BiPAP at night which has been beneficial to her. [facility] Medical History Fibromyalgia Hypothyroidism Glaucoma Obstructive sleep apnea Menieres disease Blood D-dimer assay positive Sore throat Vocal cord dysfunction Hypogammaglobulinemia Chronic respiratory failure COPD (chronic obstructive pulmonary disease) Dyspnea Surgical History Hx of shoulder surgery History of hip surgery S/P iridectomy H/O hemorrhoidectomy H/O abdominoplasty H/O inguinal hernia repair H/O gastric bypass History of colon resection Hx of section Family History Father COPD (chronic obstructive pulmonary disease) Mother Type 2 diabetes mellitus Hypertension Renal insufficiency Family/Other Colon cancer AIDS Schizophrenia Social History Alcohol intake: current Alcohol intake frequency: does not drink Patient Tobacco Use Status: Never used Tobacco Current occupational status: disabled Review of Systems Const All systems reviewed & are unremarkable except as noted in HPI and below Physical Exam Vital Signs: Last Vital Signs Pulse 71 08/19/23 10:02 BP 146/74 H 08/19/23 10:02 Pulse Ox 99 08/19/23 10:02 Oxygen Delivery Method Room Air 08/19/23 10:02 General: Appears afebrile. Alert and oriented. Mood and affect appropriate. Follows and participates in conversation appropriately. Respiratory effort is unlabored. No cough. Able to transition from sit to stand unassisted. Back/Spine/Pelvis Other: Positive facet loading bilaterally. Lumbar flexion and extension reproduce mild to moderate pain. Multiple widespread TTPs 16/16 bilaterally, including upper and lower extremities. No groin pain with I/E hip rotations. Moderate TTP to left GTB. Cervical Spine: cervical ROM normal and No Cervical spine tenderness Thoracic/Lumbar Spine: thoracic and lumbar spine normal to inspection, Lasegue's sign negative, straight leg raise negative bilaterally, pain with thoraco-lumbar ROM, paraspinal muscle tenderness, No thoracic spinal tenderness and lumbar spinal tenderness Pelvis: no buttock tenderness Sacroiliac joints: on the right nontender and on the left (+Berry's reproduces mild symptoms) tender to palpation Results Reviewed Results Reviewed: XR CERVICAL SPINE 10/19/22 CLINICAL INFORMATION: Cervical spondylosis. FINDINGS: Cervical spine is imaged through the level of the superior endplate of C7. There is 2 mm retrolisthesis of C3 on C4. Vertebral body heights are maintained. Moderate intervertebral disc space narrowing at C3-C4 through C5-C6 with right neural foraminal narrowing. Lateral masses are symmetric. Prevertebral soft tissues are within normal limits. IMPRESSION: Moderate cervical spondylosis with right neural foraminal narrowing. Assessment & Plan Assessment & Plan (1) Sacroiliac joint pain: Code(s): M53.3 - Sacrococcygeal disorders, not elsewhere classified Category: Medical (2) Lumbar spondylosis: Code(s): M47.816 - Spondylosis without myelopathy or radiculopathy, lumbar region Category: Medical (3) Greater trochanteric bursitis of right hip: Code(s): M70.61 - Trochanteric bursitis, right hip Category: Medical (4) Fibromyalgia: Code(s): M79.7 - Fibromyalgia Category: Medical (5) Mononeuropathy of left lower limb: Code(s): G57.92 - Unspecified mononeuropathy of left lower limb Category: Medical (6) Leg length discrepancy: Code(s): M21.70 - Unequal limb length (acquired), unspecified site Category: Medical Plan Patient is status post left therapeutic sacroiliac joint injection with good results and partial improvement in ADLs, mobility and functioning. Discussed interventions for left GTB tenderness. Patient will trial moist heat, NSAIDs, and gentle stretching exercises. Consider switching gabapentin to pregabalin. Short script provided for tramadol for moderate to severe pain only. Reviewed side effects and precautions. Follow up with Chiropractor for leg discrepancy. All questions and concerns been answered and patient agreed with plan. Follow-up as needed. Medications: New tramadol 50 mg PO BID 10 days PRN 20 tabs 0RF pain M47.816 - Spondylosis without myelopathy or radiculopathy, lumbar region, M53.3 - Sacrococcygeal disorders, not elsewhere classified, M70.61 - Trochanteric bursitis, right hip Coding Level of Care Code Est Pt Level 3 (12693) Diagnoses Sacroiliac joint pain M53.3 Lumbar spondylosis M47.816 Greater trochanteric bursitis of right hip M70.61 Fibromyalgia M79.7 Mononeuropathy of left lower limb G57.92 Leg length discrepancy M21.70
[2023-08-19 10:02] VITALS: BP 146/74; PULSE 71; O2SAT 99
== END 2023-08-19 10:51 | disposition home or self-care (01) ==
PROVIDERS: PCP Physician Assistant; Visit Provider Nurse Practitioner Family
DX: M53.3 Sacrococcygeal disorders, not elsewhere classified (principal); M47.816 Spondylosis without myelopathy or radiculopathy, lumbar region; M70.61 Trochanteric bursitis, right hip; M79.7 Fibromyalgia; G57.92 Unspecified mononeuropathy of left lower limb; M21.70 Unequal limb length (acquired), unspecified site
CPT/HCPCS: 99213

== ENCOUNTER → 2023-08-19 09:53 | Outpatient (BNVA) | payer OTHER, SELFPAY | PROVIDERS: PCP Physician Assistant; Visit Provider Nurse Practitioner Family | DX: M53.3 Sacrococcygeal disorders, not elsewhere classified (principal); M47.816 Spondylosis without myelopathy or radiculopathy, lumbar region; M70.61 Trochanteric bursitis, right hip; M79.7 Fibromyalgia; M21.70 Unequal limb length (acquired), unspecified site; G57.92 Unspecified mononeuropathy of left lower limb | CPT/HCPCS: 99212 ==

== ENCOUNTER 2023-10-16 07:56 | Outpatient (REF) | payer OTHER, SELFPAY ==
--- NOTE | 2023-10-16 09:33 | PFT_ITS ---
Flows: FEV1: 61 % of predicted at 1.41 L FVC: 81 % of predicted at 2.41 L FEV1/FVC: 58 % Bronchodilator response: Absent Volumes: Total lung capacity: 87 % of predicted at 4.25 L Residual volume: 102 % of predicted at on 1.77 L Slow vital capacity: 78 % of predicted at 2.47 L Expiratory reserve volume: 56 % of predicted at 0.43 L Diffusion capacity: Normal Impression: Moderate obstructive ventilatory defect with no bronchodilator response. MTDD
[2023-10-16 09:53] VITALS: PULSE 74; RESP 16; O2SAT 97
== END 2023-10-16 07:57 | disposition home or self-care (01) ==
LOC: HO.RESP 07:56
PROVIDERS: Visit Provider Hospitalist
DX: J44.1 Chronic obstructive pulmonary disease with (acute) exacerbation (principal)
CPT/HCPCS: 94010; 94640; 94727; 94729

== ENCOUNTER → 2023-10-16 09:33 | Outpatient (BNV) | payer OTHER, SELFPAY | PROVIDERS: Visit Provider Internal Medicine Pulmonary Disease | DX: J44.1 Chronic obstructive pulmonary disease with (acute) exacerbation (principal) | CPT/HCPCS: 94060; 94727; 94729 ==

== ENCOUNTER 2023-10-19 10:37 | Outpatient (AMB) | payer OTHER, SELFPAY ==
--- NOTE | 2023-10-19 10:48 | A.OFFVIS_ITS ---
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 Specialist Required: No Allergies ampicillin Allergy (Severe, Verified 10/19/23 10:51) Rash and Hives azithromycin Allergy (Severe, Verified 10/19/23 10:51) Rash/Hives methylprednisolone Allergy (Severe, Verified 10/19/23 10:51) Rash and Hives potassium Allergy (Severe, Verified 10/19/23 10:51) Rash and Hives theophylline Allergy (Severe, Verified 10/19/23 10:51) Rash and Hives aminophylline Allergy (Intermediate, Verified 10/19/23 10:51) Rash and Hives clindamycin Allergy (Intermediate, Verified 10/19/23 10:51) Rash adhesive Allergy (Unknown, Verified 10/19/23 10:51) Rash Polyethylene Glycol Allergy (Severe, Uncoded 10/19/23 10:51) Rash and Hives Tape Allergy (Severe, Uncoded 10/19/23 10:51) Rash and Hives HPI Comments Details: The patient is a 63-year-old woman with a known history of severe COPD in addition to obstructive sleep apnea. The patient continues to using BiPAP at night the BiPAP therapy continues to be affecting beneficial. She has the BiPAP every night for more than 4 hours a night. [facility] I will request a download to see how effective it is for her. She continues to use her respiratory therapy. She has not required any prednisone. She continues to have significant shortness of breath, moderate severity. She does have oxygen at home that she uses. She is also using her BiPAP pressures 18/. The therapy seems to be affecting beneficial. We did download the machine her AHI is down to 3.4. Her average use is more than 6 hours. The therapy appears to be very effective beneficial. She does use a nasal mask although sometimes she does have air leakage issues. She should consider using a fullface mask. Will try [id number] mask at this time. On examination she does have significant wheezing or rhonchi likely from bronchitis and COPD exacerbation. At this time we need to treat this before gets any worse. 12/29/2022 the patient is here for pulmonary follow-up visit. She continues to have daytime drowsiness. Her [place] score is elevated 10/24. She does use the BiPAP every night. She also has a history of COPD and chronic hypercarbic respiratory failure. She had been on noninvasive ventilator in the past but then insurance issues resulted in the discontinuation of the noninvasive ventilator and she was placed back on BiPAP. seems like the BiPAP therapy has not been effective in helping her with her ongoing daytime drowsiness. Therefore the patient did undergo a repeat sleep study. Initially was requested as a split study. But, since the patient already had a positive sleep study in 2013 demonstrating moderate sleep apnea the patient had a titration study at this time. The patient did have an elevated end-tidal CO2 of 57 mm Hg. The patient was titrated and based on the titration measurements the recommendation was switch the patient over to an auto BiPAP. the patient currently owns a regular BiPAP that she is had for about a years. At this point the therapy is not effective for her and we will request a auto BiPAP for replacement machine. The patient also was diagnosed with osteopenia and osteoporosis. She is concerned about the inhaled steroids. Currently she is on Bevespi and QVAR. Then after that she will start Trelegy 200 that she has at home. When she completes that then will be reasonable to switch her to the Trelegy 100 to try to minimize inhaled steroids. 03/31/2023 the patient is here for a pulmonary follow-up visit. She did get a new BiPAP. The auto BiPAP does not appear to be working well for her. She still having hard time with breathing. Has a hard time tolerating the pressures. She I did adjust her pressure setting some increasing the pressures overall. In the meantime will also requested a blood gas demonstrating an el evated CO2 of 57 mmHg consistent with chronic hypercarbic respiratory failure. Therefore, seems that she is failing BiPAP does not tolerate the pressures and is not improving her CO2. The patient does have significant COPD and resulting in the chronic hypercarbic respiratory failure. Therefore going back to noninvasive ventilator will improve her gas exchange, improved prognosis and decrease risk some hospitalizations. The patient had been on a noninvasive ventilator previous to the BiPAP and he was she was actually doing a lot better at that time. Therefore we will request her start a trilogy noninvasive ventilator from her [employer], [employer]. 07/13/2023 the patient is here for a pulmonary follow-up visit. The patient has been doing fairly okay. She did which over to an astral noninvasive ventilator in view of her hypercarbia. Although she is having hard time adjusting. She feels that she has getting a lot of gas pain. I did decrease the tidal volume to around 440 and also decrease her respiratory rate down from 15 to 13. I am hoping that this is enough. Otherwise will continue to adjust the machine accordingly. Will also have her repeat the blood gas on before the next visit in 3-4 months. The patient has been using her Trelegy inhaler with good effect. She continues use her respiratory therapy as well. She continues to have shortness breath with activity which explained to her is typical of her underlying obstructive airway disease. She is having hard time sleeping. Will go ahead and start her on small dose of Ambien in order for her to sleep better and tolerate her noninvasive ventilator. 10/19/2023 the patient is here for pulmonary follow-up visit. She is doing okay. She has tolerating the astral. The settings well tolerated. Her AHI is below 5. Will go ahead and check her blood gas some point. In the meantime she did have pulmonary function studies. I did personally review them with the patient. Seems like she has some moderate to severe COPD. Seems to be worsening from prior. We did do alpha-1 testing today specially with the family history. She continues on her respiratory therapy she is wondering if there is anything else other that she can take for her breathing. At this point is unlikely that any further therapies going to be effective specially since his mainly related to the heat and humidity the sometimes cause the COPD symptoms to worsen. I do believe that she needs pulmonary rehabilitation. She will look into online rehabilitation at this time. She will continue to use the noninvasive ventilator as it has been affecting beneficial. And she has tolerating the mask well. [facility] Medical History Fibromyalgia Hypothyroidism Glaucoma Obstructive sleep apnea Menieres disease Blood D-dimer assay positive Sore throat Vocal cord dysfunction Hypogammaglobulinemia Chronic respiratory failure COPD (chronic obstructive pulmonary disease) Dyspnea Surgical History Hx of shoulder surgery History of hip surgery S/P iridectomy H/O hemorrhoidectomy H/O abdominoplasty H/O inguinal hernia repair H/O gastric bypass History of colon resection Hx of section Family History Father COPD (chronic obstructive pulmonary disease) Mother Type 2 diabetes mellitus Hypertension Renal insufficiency Family/Other Colon cancer AIDS Schizophrenia Social History Alcohol intake: current Alcohol intake frequency: does not drink Patient Tobacco Use Status: Never used Tobacco Current occupational status: disabled Review of Systems Const Denies fever(s) and Denies weakness Card Denies chest pain and Reports dyspnea on exertion Resp Reports cough, Denies excessive phlegm production and Reports dyspnea on exertion GI Denies abdominal pain Musc Reports back pain Skin/Breast Denies rash Neuro Denies Abnormal speech present and Denies weakness Physical Exam Vital Signs: Last Vital Signs Pulse 66 10/19/23 10:50 Pulse Ox 99 10/19/23 10:50 Oxygen Delivery Method Room Air 10/19/23 10:50 BMI result Body Mass Index 27.5 Const General: alert Neck Neck: Yes normal visual inspection, Yes full ROM and Yes no lymphadenopathy Chest Chest palpation & inspection: normal inspection of the chest Resp Effort & Inspection: prolonged expiratory phase Auscultation: diminished lung sounds Cardio Rate: regular rate Rhythm: regular rhythm Heart sounds: S1 normal heart sound present and S2 normal heart sound present GI Palpation (GI): Soft to palpation and nontender Auscultation: normal bowel sounds Skin Lesions: lesion noted (from cupping) back Neuro Speech: No Abnormal speech present Assessment & Plan Assessment & Plan (1) Chronic respiratory failure: Code(s): J96.10 - Chronic respiratory failure, unspecified whether with hypoxia or hypercapnia Category: Medical Qualifiers: Respiratory failure complication: hypoxia and hypercapnia Qualified Code(s): J96.11 - Chronic respiratory failure with hypoxia; J96.12 - Chronic respiratory failure with hypercapnia (2) COPD (chronic obstructive pulmonary disease): Code(s): J44.9 - Chronic obstructive pulmonary disease, unspecified Category: Medical Qualifiers: COPD type: COPD with acute exacerbation Qualified Code(s): J44.1 - Chronic obstructive pulmonary disease with (acute) exacerbation (3) Hypogammaglobulinemia: Code(s): D80.1 - Nonfamilial hypogammaglobulinemia Category: Medical Plan continue Astral NIV through [facility]. Should return BIPAP, adjusted RR to 12 and VT 440 continue Trelegy OG as needed duonebs continue IgG augmentation therapy through Immunology Overnight oximetry on Astral ([facility]) repeat VBG for next visit F/U 6 months Orders: Orders Overnight Pulse Oximetry 4 Weeks J44.1 - Chronic obstructive pulmonary disease with (acute) exacerbation Medications: New ipratropium-albuterol 0.5 mg-3 mg(2.5 mg base)/3 mL 3 mL inhalation BID 180 mL 11RF 30 days J44.9 - Chronic obstructive pulmonary disease, unspecified doxycycline hyclate 100 mg PO BID 20 caps 0RF 10 days Coding Level of Care Code Est Pt Level 4 (93820) Diagnoses Chronic respiratory failure with hypoxia and hypercapnia J96.11; J96.12 Respiratory failure complication: hypoxia and hypercapnia Chronic obstructive pulmonary disease with acute exacerbation J44.1 COPD type: COPD with acute exacerbation Hypogammaglobulinemia D80.1 Time Spent (min) 16
[2023-10-19 10:50] VITALS: PULSE 66; O2SAT 99; BMI 27.5
== END 2023-10-19 11:14 | disposition home or self-care (01) ==
PROVIDERS: PCP Physician Assistant; Visit Provider Hospitalist
DX: J96.11 Chronic respiratory failure with hypoxia (principal); J96.12 Chronic respiratory failure with hypercapnia; J44.1 Chronic obstructive pulmonary disease with (acute) exacerbation; D80.1 Nonfamilial hypogammaglobulinemia
CPT/HCPCS: 99214

== ENCOUNTER → 2023-10-19 10:37 | Outpatient (BNVA) | payer OTHER, SELFPAY | PROVIDERS: PCP Physician Assistant; Visit Provider Hospitalist | DX: J96.11 Chronic respiratory failure with hypoxia (principal); J96.12 Chronic respiratory failure with hypercapnia; J44.1 Chronic obstructive pulmonary disease with (acute) exacerbation; D80.1 Nonfamilial hypogammaglobulinemia | CPT/HCPCS: 99212 ==

== ENCOUNTER 2024-01-13 14:00 | Outpatient (AMB) | payer OTHER, SELFPAY ==
--- NOTE | 2024-01-13 14:03 | A.OFFVIS_ITS ---
Vital Signs 3 01/13/24 14:07 Height 5 ft 3 in Weight 148 lb BMI 26.2 BP 125/57 L Blood Pressure Location Rt brachial Position Sitting Pulse 71 Pulse Source Pulse Oximeter Pulse Oximetry (%) 99 Oxygen Delivery Method Room Air Intake Visit Reasons: Hip Pain Intake Note: Pain today 12/03 Rn Iv Therapy Required: No Accompanied by: Self / Same As Patient Allergies ampicillin Allergy (Severe, Verified 01/13/24 14:08) Rash and Hives azithromycin Allergy (Severe, Verified 01/13/24 14:08) Rash/Hives methylprednisolone Allergy (Severe, Verified 01/13/24 14:08) Rash and Hives potassium Allergy (Severe, Verified 01/13/24 14:08) Rash and Hives theophylline Allergy (Severe, Verified 01/13/24 14:08) Rash and Hives aminophylline Allergy (Intermediate, Verified 01/13/24 14:08) Rash and Hives clindamycin Allergy (Intermediate, Verified 01/13/24 14:08) Rash adhesive Allergy (Unknown, Verified 01/13/24 14:08) Rash Polyethylene Glycol Allergy (Severe, Uncoded 10/19/23 10:51) Rash and Hives Tape Allergy (Severe, Uncoded 10/19/23 10:51) Rash and Hives HPI Comments Details: Patient presents today for follow-up for left hip pain that started last week. Denies any recent trauma, injury, or falls. Patient reports significant cramping, aching, and numbness in the left lower extremity. Left hip pain occasionally radiates to the left groin. She also suffers from chronic left anterior thigh pain with weakness status post left total hip replacement on 06/26/2020 which affects her ADLs, mobility and sleep. She had good but temporary relief with left LFCN blocks last year. Patient has completed numerous courses of physical therapy, continues with HEP and occasional chiropractic adjustments for leg discrepancy with continued symptoms. Patient also has localized tenderness in the projection of left greater trochanteric bursa. She has been managing pain with Tylenol and Naproxen and tried tramadol in the past with minimal pain relief. Denies any fever, bowel or bladder incontinence, or saddle anesthesia. Continues to endorse left lower extremity weakness. Past Procedures: 07/22/23: Left Therapeutic SIJ [id number]% ongoing pain relief 06/24/23: Bilateral Diagnostic L3-L4- DR L5 MBB-<40% pain relief 08/18/22: Right intra-articular shoulder steroid injection-80% pain relief, ongoing 05/27/22: Therapeutic Left Lateral Cutaneous Femoral Nerve Block-80% pain relief for 2 weeks 05/13/22: Diagnostic Left Lateral Cutaneous Femoral Nerve Block-50% pain relief for >48 hours PRIOR: Patient is 61 years old with a history of left total hip replacement on 06/26/2020 at [facility] presents today with left hip and thigh pain since hip surgery. She reports having difficulty moving her left leg after surgery. Reports left lateral and anteromedial hip pain increases with walking, standing, climbing stairs. She cannot cross her left leg over the other leg, has difficulty getting her left foot into or from the car and has to manually lift her left leg. She also has low back pain without radiation to her lower extremity. Reports frequent falls due to left leg pain and weakness. Patient rates her pain as 8-10/10 average intensity and described as constant aching, heavy, tiring, exhausting, spreading, radiating, piercing, hot burning, fearful due to falling, sharp, cutting, lacerating, stabbing and lancinating. Patient reports completing PT and chiropractic manipulation without improvement in her symptoms. Reports cortisone injections through [facility], [facility] and Dr. Hollingsworth office. Her EMG study on 01/16/21 showed mild chronic reinnervation of scattered proximal left leg muscles innervated by different peripheral nerves and nerve roots (iliopsoas and tensor fascia billy). The EMG study did not show acute denervation, peroneal neuropathy at the left fibula or diffuse distal left lower extremity peripheral neuropathy. L2-S1 nerve roots-no abnormal spontaneous activity. Her lumbar spine MRI on 08/01/21 showed variant anatomy with 6 lumbar type vertebral bodies. Chronic L1 compression fracture. Mild degenerative changes with minimal effect upon central canal and neural foramen. No evidence of nerve root constriction. Patient has tried gabapentin, lyrica , cymbalta , soma, nortriptyline, voltaren gel, menthol and more recently was started on Tegretol with minimal to no improvement in her symptoms. Denies any fever, malaise, chills, weight changes, bowel or bladder incontinence, or saddle anesthesia. Ambulates with antalgic gait with mild limping and currently does not use any assistive devices due to right shoulder surgery. Reports left lower extremity weakness. Patient has known history of severe COPD and MARIO and is followed by Dr. Vazquez. She uses BiPAP at night which has been beneficial to her. [facility] Medical History Fibromyalgia Hypothyroidism Glaucoma Obstructive sleep apnea Menieres disease Blood D-dimer assay positive Sore throat Vocal cord dysfunction Hypogammaglobulinemia Chronic respiratory failure COPD (chronic obstructive pulmonary disease) Dyspnea Surgical History Hx of shoulder surgery History of hip surgery S/P iridectomy H/O hemorrhoidectomy H/O abdominoplasty H/O inguinal hernia repair H/O gastric bypass History of colon resection Hx of section Family History Father COPD (chronic obstructive pulmonary disease) Mother Type 2 diabetes mellitus Hypertension Renal insufficiency Family/Other Colon cancer AIDS Schizophrenia Social History Alcohol intake: current Alcohol intake frequency: does not drink Patient Tobacco Use Status: Never used Tobacco Current occupational status: disabled Review of Systems Const All systems reviewed & are unremarkable except as noted in HPI and below Physical Exam Vital Signs: Last Vital Signs Pulse 71 01/13/24 14:07 BP 125/57 L 01/13/24 14:07 Pulse Ox 99 01/13/24 14:07 Oxygen Delivery Method Room Air 01/13/24 14:07 BMI result Body Mass Index 26.2 General: Appears afebrile. Alert and oriented. Mood and affect appropriate. Follows and participates in conversation appropriately. Respiratory effort is unlabored. No cough. Able to transition from sit to stand unassisted. General: Yes no CVA tenderness Back/Spine/Pelvis Other: Limited lumbar ROM due to pain. Positive facet loading bilaterally. Lumbar flexion and extension reproduce mild pain. Multiple widespread TTPs 16/16 bilaterally, including upper and lower extremities. No groin pain with I/E hip rotations. Moderate TTP to left GTB. Back: no CVA tenderness Cervical Spine: cervical ROM normal and No Cervical spine tenderness Thoracic/Lumbar Spine: thoracic and lumbar spine normal to inspection, Lasegue's sign negative, straight leg raise negative bilaterally, pain with thoraco-lumbar ROM, paraspinal muscle tenderness, No thoracic spinal tenderness and lumbar spinal tenderness Pelvis: no buttock tenderness Sacroiliac joints: on the right nontender and on the left (+Berry's reproduces mild symptoms) tender to palpation Extrem General: Yes capillary refill normal, Yes no clubbing, cyanosis or edema and Yes no calf tenderness Results Reviewed Results Reviewed: XR LUMBOSACRAL SPINE, XR SACROILIAC JOINT 04/02/23 CLINICAL INFORMATION: Reason for Exam M53.3 - Sacrococcygeal disorders, not elsewhere classified FINDINGS: 5 nonrib-bearing lumbar-type vertebral bodies. Chronic T12 wedge compression deformity with approximately 75% loss of height. Grade 1 anterolisthesis of L4 on L5. No pars defects. Mild degenerative disc disease at L4-L5 and at the thoracolumbar junction with loss of disc space height. Lower lumbosacral facet arthropathy. Paravertebral soft tissues are unremarkable. Partially imaged left total hip arthroplasty. Surgical clips in the pelvis. Mesh from prior hernia repair overlies the pelvis. Suture chain material in the expected region of the rectosigmoid colon. Sacroiliac joint spaces are maintained without evidence of sacral fracture. Sacral arcuate lines are intact. Right hip joint space is maintained. IMPRESSION: 1. Chronic T12 wedge compression deformity with approximately 75% loss of height. 2. Grade 1 anterolisthesis of L4 on L5. No pars defects. 3. Mild degenerative disc disease at L4-L5 and at the thoracolumbar junction with loss of disc space height. Lower lumbosacral facet arthropathy. 4. Sacroiliac joint spaces are maintained without evidence of sacral fracture. Assessment & Plan Assessment & Plan (1) History of left hip replacement: Code(s): Z96.642 - Presence of left artificial hip joint Category: Surgical (2) Left hip pain: Code(s): M25.552 - Pain in left hip Category: Medical (3) Greater trochanteric bursitis of left hip: Code(s): M70.62 - Trochanteric bursitis, left hip Category: Medical (4) Fibromyalgia: Code(s): M79.7 - Fibromyalgia Category: Medical (5) Neuropathy of left lower extremity: Code(s): G57.92 - Unspecified mononeuropathy of left lower limb Category: Medical Plan Left hip with pelvic imaging to assess hardware status. Consider Therapeutic Left GTB injection with local and fluoroscopy if normal xray findings. Expectations, risks and benefits were reviewed. Short script provided for oxycodone for severe pain only. Narcan sent with medication. Side effects and precautions were discussed with patient. All questions and concerns have been answered and patient agreed with the plan. Follow up for xray results and sooner as needed. Orders: Orders 2 XR hip LT w PEL1V Today M25.552 - Pain in left hip, Z96.642 - Presence of left artificial hip joint Medications: New 2 naloxone 4 mg/actuation (Narcan) spray 1 dose into ONE nostril; alternate nostrils w each dose until help arrives 4 mg intranasal Q2M PRN 2 ea 0RF opioid overdose oxycodone Partial Fill upon patient request. 5 mg PO Q8H 7 days PRN 20 tabs 0RF pain M25.552 - Pain in left hip, Z96.642 - Presence of left artificial hip joint Discontinued 2 tramadol Discontinued Reason: Patient Completed Course 50 mg PO BID 10 days PRN 20 tabs 0RF pain M47.816 - Spondylosis without myelopathy or radiculopathy, lumbar region, M53.3 - Sacrococcygeal disorders, not elsewhere classified, M70.61 - Trochanteric bursitis, right hip Coding Level of Care Code Est Pt Level 4 (43470) Complex EM visit Add On G2211 Diagnoses History of left hip replacement Z96.642 Left hip pain M25.552 Greater trochanteric bursitis of left hip M70.62 Fibromyalgia M79.7 Neuropathy of left lower extremity G57.92
[2024-01-13 14:07] VITALS: BP 125/57; PULSE 71; O2SAT 99; BMI 26.2
== END 2024-01-13 14:29 | disposition home or self-care (01) ==
PROVIDERS: PCP Physician Assistant; Visit Provider Nurse Practitioner Family
DX: Z96.642 Presence of left artificial hip joint (principal); M25.552 Pain in left hip; M70.62 Trochanteric bursitis, left hip; M79.7 Fibromyalgia; G57.92 Unspecified mononeuropathy of left lower limb
CPT/HCPCS: 99214; G2211

== ENCOUNTER 2024-01-13 14:00 | Outpatient (REF) | payer OTHER, SELFPAY ==
--- NOTE | ~2024-01-13 | XR_ITS ---
EXAMINATION: XR HIP, LEFT CLINICAL INFORMATION: Hip pain COMPARISON: 04/02/2023 TECHNIQUE: Two views of the left hip. FINDINGS: No acute fracture or dislocation. Left total hip arthroplasty without evidence of hardware complication. Mesh from prior hernia repair overlies the pelvis. Suture chain in the expected region of the rectosigmoid colon noted. Sacroiliac joint spaces are maintained. XR/XR hip LT w PEL1V IMPRESSION: No acute fracture or dislocation. Left total hip arthroplasty without evidence of hardware complication. Electronically signed by: Ofe Tolliver MD 02/15/2024 03:21 PM EDT
== END 2024-01-13 14:01 | disposition home or self-care (01) ==
LOC: HO.XRAY 14:00
PROVIDERS: PCP Physician Assistant; Visit Provider Nurse Practitioner Family
DX: T84.84XD Pain due to internal orthopedic prosthetic devices, implants and grafts, subsequent encounter (principal); Z96.642 Presence of left artificial hip joint; M70.62 Trochanteric bursitis, left hip
CPT/HCPCS: 73502; 99212

== ENCOUNTER 2024-03-13 13:32 | Outpatient (AMB) | payer OTHER, SELFPAY ==
--- NOTE | 2024-03-13 13:01 | MHC.OFFVIS ---
Vital Signs 03/13/24 13:34 Height 5 ft 3 in Weight 137 lb 12.623 oz BMI 24.4 BP 110/80 Blood Pressure Location Lt brachial Position Sitting Pulse 78 Pulse Source Pulse Oximeter Pulse Oximetry (%) 100 Oxygen Delivery Method Room Air Intake Visit Reasons: productive cough/wheeze Allergies ampicillin Allergy (Severe, Verified 03/13/24 13:37) Rash and Hives azithromycin Allergy (Severe, Verified 03/13/24 13:37) Rash/Hives methylprednisolone Allergy (Severe, Verified 03/13/24 13:37) Rash and Hives potassium Allergy (Severe, Verified 03/13/24 13:37) Rash and Hives theophylline Allergy (Severe, Verified 03/13/24 13:37) Rash and Hives aminophylline Allergy (Intermediate, Verified 03/13/24 13:37) Rash and Hives amoxicillin [From Augmentin] Allergy (Intermediate, Verified 03/13/24 13:56) Rash clavulanic acid [From Augmentin] Allergy (Intermediate, Verified 03/13/24 13:56) Rash clindamycin Allergy (Intermediate, Verified 03/13/24 13:37) Rash adhesive Allergy (Unknown, Verified 03/13/24 13:37) Rash Polyethylene Glycol Allergy (Severe, Uncoded 03/13/24 13:37) Rash and Hives Tape Allergy (Severe, Uncoded 03/13/24 13:37) Rash and Hives HPI HPI productive cough/wheeze: Details: Ann is a pleasant 63 year old female, never smoker, with underlying moderate to severe COPD, MARIO on BiPAP and hypogammaglobulemia on Gammagard- Dr. Mathew at [facility]. She is moderately controlled on Trelegy, albuterol MDI and DuoNeb. She is under the care of Dr. Vazquez and presents today for an acute visit. She reports productive cough with green sputum, chest congestion and wheezing since last Wednesday. COVID negative. She denies fevers, chills or sick contacts. [facility], [facility] Medical History Fibromyalgia Hypothyroidism Glaucoma Obstructive sleep apnea Menieres disease Blood D-dimer assay positive Sore throat Vocal cord dysfunction Hypogammaglobulinemia Chronic respiratory failure COPD (chronic obstructive pulmonary disease) Dyspnea Surgical History Hx of shoulder surgery History of hip surgery S/P iridectomy H/O hemorrhoidectomy H/O abdominoplasty H/O inguinal hernia repair H/O gastric bypass History of colon resection Hx of section Family History Father COPD (chronic obstructive pulmonary disease) Mother Type 2 diabetes mellitus Hypertension Renal insufficiency Family/Other Colon cancer AIDS Schizophrenia Social History Alcohol intake: current Alcohol intake frequency: does not drink Patient Tobacco Use Status: Never used Tobacco Current occupational status: disabled Review of Systems Const Denies chills, Denies excessive sweating, Denies fever(s), Denies headache(s) and Denies night sweats Eyes Denies dry eyes, Denies irritation and Denies itchy eyes ENT Reports Normal hearing present, Denies headache(s), Denies nasal congestion, Denies nasal discharge, Denies post nasal drip and Denies sore throat Card Denies chest pain, Denies chest pain at rest, Denies chest pain with activity, Denies claudication, Denies leg edema, Denies orthopnea and Denies paroxysmal nocturnal dyspnea Resp Denies excessive phlegm production, Denies pain on inspiration, Denies pain with cough and Denies stridor Musc Denies myalgias Neuro Reports Normal hearing present and Denies headache(s) Endo Denies excessive sweating Jewel/Lymph Denies lymphadenopathy Aller/Immun Denies itchy eyes and Denies seasonal rhinorrhea Physical Exam Vital Signs: Last Vital Signs Pulse 78 03/13/24 13:34 BP 110/80 03/13/24 13:34 Pulse Ox 100 03/13/24 13:34 Oxygen Delivery Method Room Air 03/13/24 13:34 BMI result Body Mass Index 24.4 Const General: cooperative, healthy appearing, comfortable, no acute distress, well developed and alert Orientation/consciousness: patient oriented x3 Limitations: no limitations HEENT Head: Yes normal to inspection, Yes normocephalic and Yes atraumatic Ears: hearing grossly normal bilaterally and external ears normal Eyes General: appearance normal, both eyes and all related structures Eyelids: Yes eyelids normal Sclerae: sclerae normal EOM: EOMs intact bilaterally Neck Neck: Yes normal visual inspection and Yes no lymphadenopathy Lymphatic: no lymphadenopathy noted Chest Chest palpation & inspection: normal inspection of the chest Resp Effort & Inspection: normal respiratory effort, able to speak in complete sentences, no audible wheezes, no cough, no stridor, not tachypneic, no tripod positioning and no use of accessory muscles Auscultation: no crackles, no rhonchi, no wheezes and diminished lung sounds Cardio Jugular venous distension: no JVD Rate: regular rate Rhythm: regular rhythm Skin Other: warm, dry General skin exam: no rashes or lesions noted Neuro General: patient oriented x3 Cranial nerves: Yes Normal hearing present Cognition (Neuro): normal cognition Gait exam (Neuro): Normal gait present Extrem General: Yes normal to inspection, Yes capillary refill normal, Yes no clubbing, cyanosis or edema and Yes no pedal edema Psych Appearance: grossly normal and well kempt Speech and movement: Normal speech and movement present and Clear speech present Affect: normal affect Attitude: cooperative Thought process: Normal thought process present Thought content: Normal thought content present Insight: Good insight present (Psych) Judgement: Good judgement present (Psych) Assessment & Plan Assessment & Plan (1) COPD (chronic obstructive pulmonary disease): Code(s): J44.9 - Chronic obstructive pulmonary disease, unspecified Category: Medical Qualifiers: COPD type: COPD with acute exacerbation Qualified Code(s): J44.1 - Chronic obstructive pulmonary disease with (acute) exacerbation (2) Chronic respiratory failure: Code(s): J96.10 - Chronic respiratory failure, unspecified whether with hypoxia or hypercapnia Category: Medical Qualifiers: Respiratory failure complication: hypoxia and hypercapnia Qualified Code(s): J96.11 - Chronic respiratory failure with hypoxia; J96.12 - Chronic respiratory failure with hypercapnia (3) Hypogammaglobulinemia: Code(s): D80.1 - Nonfamilial hypogammaglobulinemia Category: Medical Plan Will treat bronchitic symptoms with doxycyline. Recommendation to trial mucinex DM and increase fluid intake. Advised to continue Trelegy and Duoneb PRN. She is aware to call office if symptoms do not improve, if not better CXR. She also notes difficulty tolerating DPI with Trelegy, agreeable to trial Breztri. All questions were answered and patient is in agreement of plan. Will follow up for regularly scheduled appointment with Dr. Vazquez or sooner if needed. Medications: New doxycycline hyclate 100 mg PO BID 14 caps 0RF [id number] 160-9-4.8 mcg/actuation (Breztri Aerosphere) 2 inhalations inhalation BID 1 ea 6RF Coding Level of Care Code Est Pt Level 4 (15900) Diagnoses Chronic obstructive pulmonary disease with acute exacerbation J44.1 COPD type: COPD with acute exacerbation Chronic respiratory failure with hypoxia and hypercapnia J96.11; J96.12 Respiratory failure complication: hypoxia and hypercapnia Hypogammaglobulinemia D80.1
[2024-03-13 13:34] VITALS: BP 110/80; PULSE 78; O2SAT 100; BMI 24.4
== END 2024-03-13 14:05 | disposition home or self-care (01) ==
PROVIDERS: PCP Physician Assistant; Visit Provider Nurse Practitioner Family
DX: J44.1 Chronic obstructive pulmonary disease with (acute) exacerbation (principal); J96.11 Chronic respiratory failure with hypoxia; J96.12 Chronic respiratory failure with hypercapnia; D80.1 Nonfamilial hypogammaglobulinemia
CPT/HCPCS: 99214

== ENCOUNTER → 2024-03-13 13:32 | Outpatient (BNVA) | payer OTHER, SELFPAY | PROVIDERS: PCP Physician Assistant; Visit Provider Nurse Practitioner Family | DX: J44.1 Chronic obstructive pulmonary disease with (acute) exacerbation (principal); J96.11 Chronic respiratory failure with hypoxia; J96.12 Chronic respiratory failure with hypercapnia; D80.1 Nonfamilial hypogammaglobulinemia | CPT/HCPCS: 99212 ==

== ENCOUNTER 2024-04-12 11:13 | Outpatient (REF) | payer OTHER, SELFPAY ==
--- NOTE | ~2024-04-12 | XR_ITS ---
EXAMINATION: XR CHEST CLINICAL INFORMATION: R06.00 - Dyspnea, unspecified COMPARISON: 05/14/2019 TECHNIQUE: 2 views of the chest were obtained. FINDINGS: Right IJ port catheter tip terminates at the cavoatrial junction. Lungs are clear. Cardiac and mediastinal contours are normal. No consolidation, pneumothorax, or pleural effusion. Osseous structures are unremarkable. XR/XR chest 2V IMPRESSION: No acute pulmonary findings. Electronically signed by: Thiago Wolf MD 04/15/2024 11:06 PM BARAK HUYNH
[2024-04-12 12:22] LABS: MANUAL DIFF FLAG NO
[2024-04-12 12:26] LABS: VBG Base Excess 4.1 mmol/L; VBG HCO3 30 mmol/L (22-26); VBG O2 % Saturation < 30.0 %; VBG pCO2 50 mmHg; VBG pH 7.38 (7.32-7.43); VBG pO2 24 mmHg
[2024-04-12 12:26] LABS: Venous Blood Gas Refer to POC result
[2024-04-12 12:51] LABS: Basophils Absolute Auto 0.1 X10*3/uL (0.0-0.2); Basophils Percent Auto 1.3 % (0-2); Eosinophils Absolute Auto 0.1 X10*3/uL (0.0-0.4); Eosinophils Percent Auto 3.6 % (0-4); Hematocrit 37.3 % (37.0-47.0); Hemoglobin 13.3 g/dl (12.0-16.0); Imm Gran Abs Auto 0.01 X10*3/uL (0.00-0.03); Imm Gran Pct Auto 0.3 % (0.0-0.4); Lymphocytes Absolute Auto 1.4 X10*3/uL (1.2-4.9); Lymphocytes Percent Auto 34.9 % (20-40); Mean Corpuscular HGB Conc 35.7 g/dl (31.0-35.0); Mean Corpuscular Hemoglobin 32.7 pg (27.0-33.0); Mean Corpuscular Volume 91.6 fL (80.0-98.0); Mean Platelet Volume 11.4 fL (9.4-12.3); Monocytes Absolute Auto 0.4 X10*3/uL (0.1-1.2); Monocytes Percent Auto 10.7 % (2-11); Neutrophils Absolute Auto 1.9 x10*3/uL (2.0-8.3); Neutrophils Percent Auto 49.2 % (45-73); Platelet Count 193 X10*3/uL (160-400); Red Blood Count 4.07 X10*6/uL (4.20-5.50); Red Cell Distribution Width 13.2 % (11.0-16.0); White Blood Count 3.9 X10*3/uL (4.8-10.8)
[2024-04-12 13:19] LABS: Anion Gap 13 (12-20); Blood Urea Nitrogen 19 mg/dL (9-16); Calcium 9.7 mg/dL (8.4-10.2); Carbon Dioxide 27 mmol/L (22-29); Chloride 103 mmol/L (96-108); Estimated Glomerular Filt Rate > 60; Glucose Random 90 mg/dL (60-115); Potassium 3.7 mmol/L (3.3-5.1); Sodium 139 mmol/L (135-145)
== END 2024-04-12 11:14 | disposition home or self-care (01) ==
LOC: HO.XRAY 11:13
PROVIDERS: PCP Physician Assistant; Visit Provider Hospitalist
DX: D80.1 Nonfamilial hypogammaglobulinemia (principal); J44.9 Chronic obstructive pulmonary disease, unspecified; J44.1 Chronic obstructive pulmonary disease with (acute) exacerbation; J44.89 Other specified chronic obstructive pulmonary disease; J96.11 Chronic respiratory failure with hypoxia; J96.12 Chronic respiratory failure with hypercapnia
CPT/HCPCS: 36415; 71046; 80048; 82803; 85025; 99212

== ENCOUNTER 2024-04-12 11:13 | Outpatient (AMB) | payer OTHER, SELFPAY ==
--- OUTSIDE RECORDS SUMMARY | 2024-04-12 11:15 | XMS_ITS | Continuity of Care Document ---
Author Organization [facility] Address [address] [place] [id number]- Care Team Providers Care Detasseler Name Role Phone Alicja Javier Primary Care Physician [phone] Encounter [facility] ACCT R [id number] Date(s): 02/28/24 - 03/29/[address] [id number]- Attending Physician: Branden Allen Admitting Physician: Branden Allen Referring Physician: Branden Allen Encounter Type: Triage Allergies, Adverse Reactions, Alerts Substance Criticality Severity Reaction Reaction Severity Status ampicillin Rash Active aminophylline [D]Nausea Active potassium iodide [D]Nausea Act florentino Medrol hip problems Active Brandan-Dur [D]Nausea Active MiraLax Active Adhesive Bandage break out u nder the adhesive Active Other Food Allergy hops, buc kwheat, malt Active Immunizations Given and Recorded Vaccine Date Status Refusal Reason SARS-CoV-2 (COVID-19) mRNA-1273 vaccine 04/14/21 R ecorded SARS-CoV-2 (COVID-19) mRNA-1273 vaccine 09/11/20 R ecorded SARS-CoV-2 (COVID-19) mRNA-1273 vaccine 08/14/20 R ecorded influenza virus vaccine, inactivated 02/27/21 Gelacio rded hepatitis B adult vaccine 1 09/01/10 Given tetanus/diphtheria/pertussis, acel(Tdap) 07/13/10 Given 1Admin Note: per prev records 1st--02/24/2007 2nd--03/28/2007 3rd--07/26/2007 Medications albuterol-ipratropium 3 mg-0.5 mg/3 ml inhalation solution INHALE 1 VIAL VIA NEBULIZER 4 TIMES A DAY NEEDED Start Date: 12/15/21 Status: Ordered Repeat number: 1 Caltrate 600 + D By Mouth, 2 times a day, 0 Refills, Maintenance, 02/05/23 9:19:00 AM EDT, Partial fill upon patientrequest if the prescription is for a schedule II opioid drug. Start Date: 02/05/23 Status: Ordered Repeat number: 1 clonazePAM 1 mg oral tablet TAKE 1 TABLET BY MOUTH NIGHTLY BEFORE BED NEEDED Start Date: 12/15/21 Status: Ordered Repeat number: 1 docusate-senna 50 mg-187 mg oral tablet 2 tablet, By Mouth, Daily at bedtime, 0 Refills, Maintenance, 02/05/23 9:16:00 AM EDT, Partial fillupon patient request if the prescription is for a schedule II opioid drug. Start Date: 02/05/23 Status: Ordered Repeat number: 1 Gammagard Liquid 10% injectable solution 0 Refills, Maintenance, 03/08/24 9:07:00 AM EST, Partial fill upon patient request if the prescription is for a schedule II opioid drug. Start Date: 03/08/24 Status: Ordered Repeat number: 1 hydrochlorothiazide-triamterene 25 mg-37.5 mg oral capsule 1 capsule, TAKE ONE CAPSULE BY MOUTH EVERY DAY DIRECTED Start Date: 02/25/22 Status: Ordered Repeat number: 1 levothyroxine 0.088 mg oral tablet TAKE ONE TABLET BY MOUTH EVERY DAY Start Date: 12/15/21 Status: Ordered Repeat number: 1 magnesium oxide 400 mg oral tablet 1 tablet = 400 mg, By Mouth, Daily, 0 Refills, Maintenance, 02/05/23 9:18:00 AM EDT, Partial fill upon patient request if the prescription is for a schedule II opioid drug. Start Date: 02/05/23 Status: Ordered Repeat number: 1 meclizine 25 mg oral tablet 1 tablet = 25 mg, By Mouth, 3 times a day, PRN for dizziness, # 30 tablet, 0 Refills, Maintenance, 02/05/23 9:16:00 AM EDT, Tablet, Partial fill upon patient request if the prescription is for a schedule II opioid drug. Start Date: 02/05/23 Status: Ordered Quantity: 30.0 Unit: tablet Repeat number: 1 mometasone 0.1% topical ointment Topically, Daily, 0 Refills, Maintenance, 02/05/23 9:17:00 AM EDT, Partial fill upon patient request if the prescription is for a schedule II opioid drug. Start Date: 02/05/23 Status: Ordered Repeat number: 1 omeprazole 40 mg oral enteric coated capsule 1 capsule = 40 mg, By Mouth, Daily, # 30 capsule, 0 Refills, Maintenance, 12/15/21 11:56:00 PM EDT, EC Capsule, Partial fill upon patient request if the prescription is for a schedule II opioid drug. Start Date: 12/15/21 Status: Ordered Quantity: 30.0 Unit: capsule Repeat number: 1 ondansetron 4 mg oral tablet 1 tablet = 4 mg, By Mouth, Every 8 hours, PRN Nausea & Vomiting, # 3 tablet, 0 Refills, Maintenance, 02/05/23 9:16:00 AM EDT, Tablet, Partial fill upon patient request if the prescription is for a schedule II opioid drug. Start Date: 02/05/23 Status: Ordered Quantity: 3.0 Unit: tablet Repeat number: 1 ProAir HFA 90 mcg/inh inhalation aerosol with adapter Refills 0, Maintenance, 12/15/21 10:04:00 AM EDT Start Date: 12/15/21 Status: Ordered Repeat number: 1 Trelegy Ellipta 200 mcg-62.5 mcg-25 mcg/inh inhalation powder 60 each, INHALE ONE PUFF BY MOUTH EVERY DAY, 0 Refills, 05/03/22 1:30:00 PM EST, Partial fill upon patient request if the prescription is for a schedule II opioid drug. Start Date: 05/03/22 Status: Ordered Repeat number: 1 Tylenol 325 mg oral tablet 650 mg, 2, tablet, By Mouth, Every 4 hours, PRN, # 120 tablet, Refills 0, Maintenance, for fever, 02/25/22 10:21:00 AM EDT, Partial fill upon patient request if the prescription is for a schedule II opioid drug. Start Date: 02/25/22 Status: Ordered Quantity: 120.0 Unit: tablet Repeat number: 1 Problem List Condition Confirmation Course Effective Dates Status H ealth Status Informant Anemia Confirmed Active Asthma Confirmed 06/18/10 Active T12 burst fracture Confirmed Active Colon cancer R colon resection of cancerous polyp Confirmed 06/18/10 Active Constipation Confirmed Active Depression Confirmed Active Fall Confirmed Active Fibromyalgia Confirmed Active GERD - Gastro-esophageal reflux disease Confirmed 07/21/10 Active Hemorrhoidectomy Confirmed Active History of laparoscopic gastric banding device Confirmed 07/21/10 Active Hypothyroidism Confirmed 06/19/10 Active IBS (irritable bowel syndrome) Confirmed Active Meniere's disease NOS Confirmed Active Narrow angle glaucoma Confirmed Active MARIO (obstructive sleep apnea) Confirmed Active Obstructive sleep apnea Confirmed Active Hallux varus Confirmed Active Social History Social History Type Response Smoking Status Never smoker entered on: 05/11/14 Sex Female Sex Representation Female (finding) Patient Care team information Care Team Personnel Name: Alicja Javier Position: [facility] Outreach Member Role: PCP Address: [address] [place] [address] Telecom: Name: Carol Jamil RN Position: [facility] RN Member Role: Primary Care Nurse Name: Ayde Perez RN Position: [facility] RN Member Role: Primary Care Nurse Name: Antony Morgan RN Position: [facility] RN Member Role: Primary Care Nurse Care Team Related Persons Name: AMANDA STEVEN Name: DORA HARRIS Name: PATIENT, STATES NOONE Name: ANDRAE LANCASTER Insurance Providers Guarantor name: [facility] Plan Information #: 1 Payer: [facility] Member Number: NA Policy Number: NA Group Number: NA
[2024-04-12 11:21] VITALS: BP 106/70; PULSE 79; O2SAT 99
--- NOTE | 2024-04-12 11:21 | A.OFFVIS_ITS ---
Vital Signs 04/12/24 11:21 Weight 129 lb BP 106/70 Blood Pressure Location Rt brachial Position Sitting Pulse 79 Pulse Source Pulse Oximeter Pulse Oximetry (%) 99 Oxygen Delivery Method Room Air Intake Visit Reasons: COPD Allergies ampicillin Allergy (Severe, Verified 04/12/24 11:23) Rash and Hives azithromycin Allergy (Severe, Verified 04/12/24 11:23) Rash/Hives methylprednisolone Allergy (Severe, Verified 04/12/24 11:23) Rash and Hives potassium Allergy (Severe, Verified 04/12/24 11:23) Rash and Hives theophylline Allergy (Severe, Verified 04/12/24 11:23) Rash and Hives aminophylline Allergy (Intermediate, Verified 04/12/24 11:23) Rash and Hives amoxicillin [From Augmentin] Allergy (Intermediate, Verified 04/12/24 11:23) Rash clavulanic acid [From Augmentin] Allergy (Intermediate, Verified 04/12/24 11:23) Rash clindamycin Allergy (Intermediate, Verified 04/12/24 11:23) Rash adhesive Allergy (Unknown, Verified 04/12/24 11:23) Rash Polyethylene Glycol Allergy (Severe, Uncoded 04/12/24 11:23) Rash and Hives Tape Allergy (Severe, Uncoded 04/12/24 11:23) Rash and Hives Medication List - Last Reconciled 04/12/24 by Wendy Rodas LPN acetaminophen (Tylenol) 325 mg PO QID PRN albuterol sulfate 90 mcg/actuation 2 inhalations inhalation Q6H PRN 30 days alclometasone 0.05% appl topical BID PRN ammonium lactate 12% appl topical BID vpolpxvjwr-wvienasp-flrsmfdxkh 160-9-4.8 mcg/actuation (Breztri Aerosphere) 2 inhalations inhalation BID calcium carb-vitamin D3-vit K2 600 mg-1,000 unit-90 mcg 1 tab PO DAILY 30 days clonazepam 1 mg PO BEDTIME PRN CPAP (CPAP Machine/Device) As directed doxycycline hyclate 100 mg PO BID doxycycline hyclate 100 mg PO BID 10 days duloxetine 30 mg PO BID epinephrine IM escitalopram oxalate 20 mg PO DAILY oewvzerwpxx-hsfyyxiuf-qamjcxjs 100-62.5-25 mcg (Trelegy Ellipta) 1 inh inhalation DAILY 30 days gabapentin 800 mg PO BID 90 days IgG-hyaluronidase,recombinant 10 gram /100 mL (10 %) (HyQvia) mL subcut IgG-hyaluronidase,recombinant 20 gram /200 mL (10 %) (HyQvia) mL subcut ipratropium-albuterol 0.5 mg-3 mg(2.5 mg base)/3 mL 3 mL inhalation BID 30 days levothyroxine 50 mcg PO DAILY meclizine 25 mg PO TID PRN naloxone 4 mg/actuation (Narcan) 4 mg intranasal Q2M PRN nebulizers As directed omeprazole 20 mg PO DAILY oxycodone 5 mg PO Q8H PRN 7 days Stiolto Respimat 2.5-2.5 mcg/actuation (tiotropium-olodaterol) 2 puffs inhalation DAILY NS triamterene-hydrochlorothiazid 37.5-25 mg 1 cap PO DAILY urea 40% appl topical BID zolpidem 5 mg PO BEDTIME PRN 30 days HPI Comments Details: The patient is a 63-year-old woman with a known history of severe COPD in addition to obstructive sleep apnea. The patient continues to using BiPAP at night the BiPAP therapy continues to be affecting beneficial. She has the BiPAP every night for more than 4 hours a night. She has been getting supplies through [employer]. I will request a download to see how effective it is for her. She continues to use her respiratory therapy. She has not required any prednisone. She continues to have significant shortness of breath, moderate severity. She does have oxygen at home that she uses. She is also using her BiPAP pressures 18/11. The therapy seems to be affecting beneficial. We did download the machine her AHI is down to 3.4. Her average use is more than 6 hours. The therapy appears to be very effective beneficial. She does use a nasal mask although sometimes she does have air leakage issues. She should consider using a fullface mask. Will try [id number] mask at this time. On examination she does have significant wheezing or rhonchi likely from bronchitis and COPD exacerbation. At this time we need to treat this before gets any worse. 12/29/2022 the patient is here for pulmonary follow-up visit. She continues to have daytime drowsiness. Her [place] score is elevated 10/24. She does use the BiPAP every night. She also has a history of COPD and chronic hypercarbic respiratory failure. She had been on noninvasive ventilator in the past but then insurance issues resulted in the discontinuation of the noninvasive ventilator and she was placed back on BiPAP. seems like the BiPAP therapy has not been effective in helping her with her ongoing daytime drowsiness. Therefore the patient did undergo a repeat sleep study. Initially was requested as a split study. But, since the patient already had a positive sleep study in 2013 demonstrating moderate sleep apnea the patient had a titration study at this time. The patient did have an elevated end-tidal CO2 of 57 mm Hg. The patient was titrated and based on the titration measurements the recommendation was switch the patient over to an auto BiPAP. the patient currently owns a regular BiPAP that she is had for about a years. At this point the therapy is not effective for her and we will request a auto BiPAP for replacement machine. The patient also was diagnosed with osteopenia and osteoporosis. She is concerned about the inhaled steroids. Currently she is on Bevespi and QVAR. Then after that she will start Trelegy 200 that she has at home. When she completes that then will be reasonable to switch her to the Trelegy 100 to try to minimize inhaled steroids. 03/31/2023 the patient is here for a pulmonary follow-up visit. She did get a new BiPAP. The auto BiPAP does not appear to be working well for her. She still having hard time with breathing. Has a hard time tolerating the pr essures. She I did adjust her pressure setting some increasing the pressures overall. In the meantime will also requested a blood gas demonstrating an elevated CO2 of 57 mmHg consistent with chronic hypercarbic respiratory failure. Therefore, seems that she is failing BiPAP does not tolerate the pressures and is not improving her CO2. The patient does have significant COPD and resulting in the chronic hypercarbic respiratory failure. Therefore going back to noninvasive ventilator will improve her gas exchange, improved prognosis and decrease risk some hospitalizations. The patient had been on a noninvasive ventilator previous to the BiPAP and he was she was actually doing a lot better at that time. Therefore we will request her start a trilogy noninvasive ventilator from her [employer], [employer] 07/13/2023 the patient is here for a pulmonary follow-up visit. The patient has been doing fairly okay. She did which over to an astral noninvasive ventilator in view of her hypercarbia. Although she is having hard time adjusting. She feels that she has getting a lot of gas pain. I did decrease the tidal volume to around 440 and also decrease her respiratory rate down from 15 to 13. I am hoping that this is enough. Otherwise will continue to adjust the machine accordingly. Will also have her repeat the blood gas on before the next visit in 3-4 months. The patient has been using her Trelegy inhaler with good effect. She continues use her respiratory therapy as well. She continues to have shortness breath with activity which explained to her is typical of her underl wayne obstructive airway disease. She is having hard time sleeping. Will go ahead and start her on small dose of Ambien in order for her to sleep better and tolerate her noninvasive ventilator. 10/19/2023 the patient is here for pulmonary follow-up visit. She is doing okay. She has tolerating the astral. The settings well tolerated. Her AHI is below 5. Will go ahead and check her blood gas some point. In the meantime she did have pulmonary function studies. I did personally review them with the patient. Seems like she has some moderate to severe COPD. Seems to be worsening from prior. We did do alpha-1 testing today specially with the family history. She continues on her respiratory therapy she is wondering if there is anything else other that she can take for her breathing. At this point is unlikely that any further therapies going to be effective specially since his mainly related to the heat and humidity the sometimes cause the COPD symptoms to worsen. I do believe that she needs pulmonary rehabilitation. She will look into online rehabilitation at this time. She will continue to use the noninvasive ventilator as it has been affecting beneficial. And she has tolerating the mask well. 04/12/2024 the patient is here for a pulmonary follow-up visit. Overall she is doing well. Sometimes she is having hard time with her noninvasive ventilator. She is still struggling with a little bit. Sometimes she wakes up at 1 or 02:00 o'clock in the morning and can not go back to sleep. She does try sleep aids but it did not help keep her sleep. I do believe trazodone may be effective for her. She can try half to full tablet 1 hour before sleep. In addition to that if he continues to have difficulties we can try to have respiratory from her [employer] company going adjusted ventilator. Will go ahead request blood work including a blood gas to make sure that her CO2 is improving on the noninvasive ventilator. The patient is also complaining of back pain along with some shortness of breath. She has significant sacroiliac disease. Indeed she may have more musculoskeletal issues although working always do an x-ray whenever she has the opportunity to do so to make sure that she is not developing any pulmonary or lung manifestations. Currently her respiratory exam is reassuring. I do believe the Trelegy is enough at this time. I do not believe that additional therapies are warranted. [facility] Medical History (Updated 04/12/24 @ 11:48 by Benoit Vazquez MD) Asthma-COPD overlap syndrome Fibromyalgia Hypothyroidism Glaucoma Obstructive sleep apnea Menieres disease Blood D-dimer assay positive Sore throat Vocal cord dysfunction Hypogammaglobulinemia Chronic respiratory failure COPD (chronic obstructive pulmonary disease) Dyspnea Surgical History Hx of shoulder surgery History of hip surgery S/P iridectomy H/O hemorrhoidectomy H/O abdominoplasty H/O inguinal hernia repair H/O gastric bypass History of colon resection Hx of section Family History Father COPD (chronic obstructive pulmonary disease) Mother Type 2 diabetes mellitus Hypertension Renal insufficiency Family/Other Colon cancer AIDS Schizophrenia Social History Alcohol intake: current Alcohol intake frequency: does not drink Patient Tobacco Use Status: Never used Tobacco Current occupational status: disabled Review of Systems Const Denies fever(s) and Denies weakness Card Denies chest pain and Reports dyspnea on exertion Resp Reports cough, Denies excessive phlegm production and Reports dyspnea on exertion GI Denies abdominal pain Musc Reports back pain Skin/Breast Denies rash Neuro Denies Abnormal speech present and Denies weakness Physical Exam Vital Signs: Last Vital Signs Pulse 79 04/12/24 11:21 BP 106/70 04/12/24 11:21 Pulse Ox 99 04/12/24 11:21 Oxygen Delivery Method Room Air 04/12/24 11:21 Const General: alert Neck Neck: Yes normal visual inspection, Yes full ROM and Yes no lymphadenopathy Chest Chest palpation & inspection: normal inspection of the chest Resp Effort & Inspection: prolonged expiratory phase Auscultation: diminished lung sounds Cardio Rate: regular rate Rhythm: regular rhythm Heart sounds: S1 normal heart sound present and S2 normal heart sound present GI Palpation (GI): Soft to palpation and nontender Auscultation: normal bowel sounds Skin Lesions: lesion noted (from cupping) Neuro Speech: No Abnormal speech present Assessment & Plan Assessment & Plan (1) Chronic respiratory failure: Code(s): J96.10 - Chronic respiratory failure, unspecified whether with hypoxia or hypercapnia Category: Medical Qualifiers: Respiratory failure complication: hypoxia and hypercapnia Qualified Code(s): J96.11 - Chronic respiratory failure with hypoxia; J96.12 - Chronic respiratory failure with hypercapnia (2) COPD (chronic obstructive pulmonary disease): Code(s): J44.9 - Chronic obstructive pulmonary disease, unspecified Category: Medical Qualifiers: COPD type: COPD with acute exacerbation Qualified Code(s): J44.1 - Chronic obstructive pulmonary disease with (acute) exacerbation (3) Hypogammaglobulinemia: Code(s): D80.1 - Nonfamilial hypogammaglobulinemia Category: Medical (4) Dyspnea: Code(s): R06.00 - Dyspnea, unspecified Category: Medical Qualifiers: Dyspnea type: dyspnea on exertion Qualified Code(s): R06.00 - Dyspnea, unspecified Plan continue Astral NIV through [facility]. Should return BIPAP, adjusted RR to 12 and VT 440 start Trazodone 1/2 tab-->1 tab QHS continue Trelegy OG as needed duonebs continue IgG augmentation therapy through Immunology repeat VBG and bloodwork CXR F/U 4-6 months Orders: Orders Complete Blood Count Auto Diff Today J44.89 - Other specified chronic obstructive pulmonary disease Basic Metabolic Panel Today J44.89 - Other specified chronic obstructive pulmonary disease Venous Blood Gas Today J44.89 - Other specified chronic obstructive pulmonary disease XR chest 2V Today R06.00 - Dyspnea, unspecified Medications: New trazodone 50 mg PO BEDTIME PRN 30 tabs 5RF sleep 30 days Coding Level of Care Code Est Pt Level 4 (23875) Complex EM visit Add On G2211 Diagnoses Chronic respiratory failure with hypoxia and hypercapnia J96.11; J96.12 Respiratory failure complication: hypoxia and hypercapnia Chronic obstructive pulmonary disease with acute exacerbation J44.1 COPD type: COPD with acute exacerbation Hypogammaglobulinemia D80.1 Dyspnea on exertion R06.00 Dyspnea type: dyspnea on exertion Time Spent (min) 17
== END 2024-04-12 11:50 | disposition home or self-care (01) ==
PROVIDERS: PCP Physician Assistant; Visit Provider Hospitalist
DX: J96.11 Chronic respiratory failure with hypoxia (principal); J96.12 Chronic respiratory failure with hypercapnia; J44.1 Chronic obstructive pulmonary disease with (acute) exacerbation; D80.1 Nonfamilial hypogammaglobulinemia; R06.00 Dyspnea, unspecified
CPT/HCPCS: 99214; G2211

== ENCOUNTER 2024-08-16 09:53 | Outpatient (REF) | payer OTHER, SELFPAY ==
[2024-08-16 10:51] LABS: MANUAL DIFF FLAG NO
[2024-08-16 10:58] LABS: VBG pH 7.37 (7.32-7.43)
[2024-08-16 10:58] LABS: Venous Blood Gas Refer to POC result
[2024-08-16 10:59] LABS: VBG Base Excess 5.6 mmol/L; VBG HCO3 32 mmol/L (22-26); VBG pCO2 54 mmHg; VBG pO2 28 mmHg
[2024-08-16 11:14] LABS: Basophils Percent Auto 0.6 % (0-2); Eosinophils Percent Auto 0.6 % (0-4); Hematocrit 36.2 % (37.0-47.0); Hemoglobin 12.6 g/dl (12.0-16.0); Imm Gran Abs Auto 0.01 X10*3/uL (0.00-0.03); Imm Gran Pct Auto 0.2 % (0.0-0.4); Lymphocytes Absolute Auto 1.3 X10*3/uL (1.2-4.9); Lymphocytes Percent Auto 25.8 % (20-40); Mean Corpuscular HGB Conc 34.8 g/dl (31.0-35.0); Mean Corpuscular Hemoglobin 32.6 pg (27.0-33.0); Mean Corpuscular Volume 93.5 fL (80.0-98.0); Mean Platelet Volume 11.8 fL (9.4-12.3); Monocytes Absolute Auto 0.3 X10*3/uL (0.1-1.2); Monocytes Percent Auto 6.3 % (2-11); Neutrophils Absolute Auto 3.4 x10*3/uL (2.0-8.3); Neutrophils Percent Auto 66.5 % (45-73); Platelet Count 172 X10*3/uL (160-400); Red Blood Count 3.87 X10*6/uL (4.20-5.50); White Blood Count 5.1 X10*3/uL (4.8-10.8)
[2024-08-16 11:30] LABS: Anion Gap 12 (12-20); Blood Urea Nitrogen 24 mg/dL (9-16); Calcium 9.2 mg/dL (8.4-10.2); Carbon Dioxide 26 mmol/L (22-29); Chloride 107 mmol/L (96-108); Estimated Glomerular Filt Rate > 60; Glucose Random 95 mg/dL (60-115); Sodium 141 mmol/L (135-145)
--- OUTSIDE RECORDS SUMMARY | 2024-08-16 12:19 | XMS_ITS | Clinical Summary ---
Author Organization [facility] Address [address] [place], [place] [id number] Care Team Providers Care Snowboard Designer Name Role Phone Tika Hou MD Primary Care Provider [phone] Allergies Active Allergy Reactions Criticality Noted Date [...] (two) times a day. 0 Active Tiotropium [place]-Olodaterol (STIOLTO RESPIMAT IN) Inhale into the lungs. 0 Active calcium citrate-vitamin D (CITRACAL+D) 315-200 MG-UNIT per tablet Take 1 tablet by mouth 2 (two) times a day. 0 Active [place]grass-3 Fatty Acids (FISH OIL) 1000 MG CPDR [...] age to complete this topic Care Teams Snowboard Designer Relationship Specialty Start Date End Date Tika Hou MD [address] [place] [id number] PCP - General Internal Medicine 12/27/19
--- OUTSIDE RECORDS SUMMARY | 2024-08-16 12:19 | XMS_ITS | Clinical Summary ---
Author Organization [facility] Address [address] [place] [address] Phone Care Team Providers Care Pre K Special Education Teacher Name Role Phone Berry Lenz Primary Care Provider [phone] Allergies Active Allergy Reactions Criticality Noted Date [...] disease 05/21/2017 Irritable bowel syndrome 01/13/2017 Hypogammaglobulinemia ([facility] V24) 11/30/2016 Obstructive sleep apnea syndrome in adult 2016 Respiratory failure with hypoxia (CMS/[facility] V24, C [place]/HCC V28) 11/30/2016 Overview (02/07/2024): Comments: chronic, HS O2 Gastroesophageal reflux disease 07/30/2016 Pulmonary emphysema (CMS/HCC V24, CMS/HCC V28) 1 Overview (02/07/2024): Comments: Centrilobular Encounters Date Type Department Care Team Description 07/04/2024 10:15 AM EDT Office Visit Bariatric Surgery - [place] [address] [place] [address] Sushma Chong PA Hx of obesity (Primary Dx) from Last 3 Months Surgical History Surgery Date Site/Laterality Comments SECTION PROCEDURE: HISTORICAL EYE SURGERY PROCEDURE: HISTORICAL EYE SURGERY; COMMENT: iridectomy OTHER SURGICAL HISTORY PROCEDURE: HISTORY OTHER; COMMENT: proctoplexy with sigmoid resection HERNIA REPAIR 2006 PROCEDURE: HISTORICAL HERNIA REPAIR/ING OTHER SURGICAL HISTORY 09/2015 PROCEDURE: NM GASTRIC RSTCV W/O BYP VERTICAL-BANDED GASTROPLY; COMMENT: gastric sleeve HEMORRHOID SURGERY PROCEDURE: DESTRUCTION OF HEMORRHOIDS; COMMENT: hemorrhoidectomy LAPAROSCOPIC GASTRIC BANDING 2005 PROCEDURE: LAP ADJUSTABLE GASTRIC BAND COLONOSCOPY 07/20/2016 PROCEDURE: HISTORICAL COLONOSCOPY; COMMENT: Minimal Diverticulosis. Repeat 3 yrs UPPER GASTROINTESTINAL ENDOSCOPY 04/20/2012 PROCEDURE: NM UPPER GI ENDOSCOPY PERFORMED; COMMENT: Negative for [...] 1.5 yrs UPPER GASTROINTESTINAL ENDOSCOPY 06/17/2010 PROCEDURE: NM UPPER GI ENDOSCOPY PERFORMED; COMMENT: No evidence reflux damage COLONOSCOPY 03/05/2004 PROCEDURE: HISTORICAL COLONOSCOPY; COMMENT: Partial polpectomy with tattooing COLONOSCOPY 02/12/2004 PROCEDURE: HISTORICAL COLONOSCOPY; COMMENT: Ascending colon polyp & mass of the sigmoid colon. UPPER GASTROINTESTINAL ENDOSCOPY 11/02/1997 PROCEDURE: NM UPPER GI ENDOSCOPY PERFORMED; COMMENT: Bile reflux, small hiatal hernia OTHER SURGICAL HISTORY 02/2004 PROCEDURE: NM LAPAROSCOPY COLECTOMY PARTIAL W/ANASTOMOSIS; COMMENT: Invasive adenocarcinoma [...] V28) 11/30/2016 DX:Respiratory failure with hypoxia ([facility]); COMMENT: Comments: chronic, HS O2 Diverticulosis 07/22/2018 [...] Most Recently Relevant to Health Maintenance Insurance [facility] [employer] DULCE HOANG [id number] Advance Directives Documents on File Type Date Recorded Patient Dolly Driver Expl anation Health Care Decision (hx) 09/08/2016 AD [place] DIRECTIVE Health Care Decision (hx) 09/08/2016 AD [place]Y DIRECTIVE Health Care Decision (hx) 09/08/2016 AD REY DIRECTIVE Health Care Decision (hx) 09/08/2016 AD REY DIRECTIVE Health Care Decision (hx) 09/08/2016 AD REY DIRECTIVE Care Teams Pre K Special Education Teacher Relationship Specialty Start Date End Date Berry Lenz PA [address] [place] [id number] PCP - General 10/27/23
--- OUTSIDE RECORDS SUMMARY | 2024-08-16 12:19 | XMS_ITS | Clinical Summary ---
Author Organization [facility] Address [address] [place] [address] Care Team Providers Care Chassis Inspector Name Role Phone Unavailable Primary Care Provider [...] 2005 Imm-Zoster, Recombinant (1 of 2) 2010 Nzc-[id number] ( season) 2023 021, 08/14/2020 Imm-Influenza (#1) 2023 Alcohol and Drug Screen 04/26/2024 Depression Annual Screen 04/26/2024 Cervical Ablation/Cold-Knife Conization Discontinued Cervical Cryotherapy Discontinued Colposcopy Discontinued Endometrial Biopsy Discontinued Excision/Leep Discontinued HPV Genotyping Discontinued Vaginal Pap Discontinued Vulvoscopy Discontinued Insurance [facility] INS[facility] Member Subscriber Plan / Payer (Ef fective 2017-Present) Name:Ann Knox Relation to Subscriber:Self Name:Ann Knox Payer ID:[id number] Type:Indemnity Address: [address] [address]
--- OUTSIDE RECORDS SUMMARY | 2024-08-16 12:19 | XMS_ITS | Continuity of Care Document ---
Author Organization [facility] Address [address] [place] [address] Phone Care Team Providers Care Census Taker Name Role Phone Ryan JOHANSEN, RVMaddie, GLORIA, [...] Mins- [place] & [place] [facility], [address], [place], [id number], [place] tel:[phone] CVR - [place] Localized edemaCramp and spasmRestless legs syndromeVenou s insufficiency (chronic) (peripheral)P ruritus, unspecified 4 Ryan JOHANSEN RVT, GLORIA Myers. [address] [place] [address], Marisa caldera [place], [id number], [place]. tel:[phone] Referring Provider: Alicja Lemus, [address] [place] [address], [facility]. tel:[phone] [facility], [address] [place] [address] Dr [address] [place], [id number], [place] tel:[phone] CVR - [place] Varicose veins of bilateral lower extremities with pain 4 Ryan JOHANSEN RVT, GLORIA Myers. [address] [place] [address], Marisa calder[place], [id number], [place]. tel:[phone] Referring Provider: Ailcja Lemus, [address] [place] [address], [facility]. tel:[phone] [facility], [address] [place] [address] Dr [address] [place], [id number], [place] tel:[phone] CVR - [place] Encounter for follow-up examination after completed treatment for conditions other than malignant neVaricose veins of right lower extremity with pain 4 Ryan JOHANSEN RVT, RPVI Robert. [address] [place] [address], Marisa caldera [place], [id number], [place]. tel:[phone] Referring Provider: Alicja Lemus, [address] [place] [address], [facility]. tel:[phone] [facility], [address] [place] [address] Dr [address], [id number], [place] tel:[phone] CVR - [place] Varicose veins of right lower extremity with other complications 4 Ryan JOHANSEN RVT, RPVI Robert. [address] [place] [address], Marisa caldera [place], [id number], [place]. tel:[phone] Referring Provider: Alicja Lemus [address] [place] [address], [id number]. tel:[phone] [facility], [address] [place] [address] Dr [address] [place], [id number], [place] tel:[phone] CVR - [place] Encounter for follow-up examination after completed treatment for conditions other than malignant nePain in right leg 4 Ryan JOHANSEN RVT, GLORIA Myers. [address] [place] [address], Piercetonsharath calder[place], [id number], [place]. tel:[phone] Referring Provider: Alicja Lemus, [address] [place] [address], [facility]. tel:[phone] [facility], [address] [place] [address] Dr [address] [place], [id number], [place] tel:[phone] CVR - [facility] Varicose veins of right lower extremity with other complications 4 Ryan JOHANSEN RVT, GLORIA Myers. [address] [place] [address], Marisa caldera [place], [id number], [place]. tel:[phone] Referring Provider: Alicja Lemus, [address] [place] [address], [id number]. tel:[phone] [facility], [address] [place] [address] Dr [address] [place], [id number], [place] tel:[phone] CVR - [place] [facility] Encounter for follow-up examination after completed treatment for conditions other than malignant ne 4 Ryan JOHANSEN RVT, GLORIA Myers. [address] [place] [address], Marisa calder[place], [id number], [place]. tel:[phone] Referring Provider: Alicja Lemus, [address] [place] [address], [id number]. tel:[phone] [facility], [address] [place] [address] Dr [address] [place], [id number], [place] tel:[phone] CVR - [place] Varicose veins of left lower extremity with other complications 4 Ryan JOHANSEN RVT, RPVI Robert. [address] [place] [address], [facility] [place], [id number], [place]. tel:[phone] Referring Provider: Alicja Lemus, [address] [place] [address], [facility]. tel:[phone] Office/Outpt E&M Established 15 Mins- [place] & [place] [facility], [address] [place] [address] Dr [address] kitchen [place], [id number], [place] tel:[phone] CVR - [place] Restless legs syndromeVenou s insufficiency (chronic) (peripheral)P ruritus, unspecifiedLo calized edemaCramp and spasm 4 Ryan JOHANSEN RVT, RPVI Robert. [address] [place] [address], [facility] [place], [id number], [place]. tel:[phone] Referring Provider: Alicja Lemus, [address] [place] [address], [facility]. tel:[phone] Office/Outpt E&M Established 15 Mins [facility], [address] [place] [address] Dr [address] [place], [id number], [place] tel:[phone] CVR - [place] Venous insufficiency (chronic) (peripheral) 4 Ryan JOHANSEN RVT, RPVI Robert. [address] [place] [address], [facility] [place], [id number], [place]. tel:[phone] Referring Provider: Alicja Lemus, [address] [place] [address], [facility]. tel:[phone] [facility], [address] [place] [address] Dr [address]Rey kitchen [place], [id number], [place] tel:[phone] CVR - [facility] Chronic venous hypertension (idiopathic) with other complications of bilateral lower extremity 4 Ryan JOHANSEN RVT, RPVI Robert. [address] [place] [address], Mar[place], [id number], [place]. tel:[phone] Referring Provider: Alicja Lemus, [address] [place] [address], [address]. tel:[phone] [facility], [address] [place] [address] Dr [address]y [place], [id number], [place] tel:[phone] CVR - [place] Encounter for follow-up examination after completed treatment for conditions other than malignant neVaricose veins of left lower extremity with pain Dec-2 3 Ryan JOHANSEN, RVT, GLORIA Myers. [address] [place] [address], [place], [id number], [place]. tel:[phone] Referring Provider: Alicja Lemus, [address] [place] [address], [facility]. tel:[phone] [facility], [address] [place] [address] Dr [address] 1000[place], [id number], [place] tel:[phone] CVR - [facility] Varicose veins of left lower extremity with other complications Dec-2 3 August Das. [address] [place] [address], Mar[place], [id number], [place]. tel:[phone] Referring Provider: Alicja Lemus, [address] [place] [address], [id number]. tel:[phone] [facility], [address] [place] [address] Dr [address] 1000[place]y [place], [id number], [place] tel:[phone] CVR - [facility] Varicose veins of left lower extremity with other complications Dec-2 0 3 Joby JOHANSEN FACS RVT GLORIA Felder. [address] [place] [address], [place], [id number], [place]. tel:[phone] Referring Provider: Alicja Lemus, [address] [place] [address], [id number]. tel:[phone] [facility], [address] [place] [address] Dr [address] 1000Rey [place], [id number], [place] tel:[phone] CVR - [place] Encounter for follow-up examination after completed treatment for conditions other than malignant neChronic venous hypertension (idiopathic) with other complications of right lower extremity Dec-0 3 Joby Felder. [address] [place] [address], [place], [address], [place]. tel:[phone] Referring Provider: Alicja Lemus, [address] [place] [address], [id number]. tel:[phone] [facility], [address] [place] [address] Dr [address] 1000[place]y [place], [id number], [place] tel:[phone] CVR - [place] Varicose veins of right lower extremity with other complications 3 August Das. [address] [place] [address], [place], [place], [id number], [place]. tel:[phone] Referring Provider: Alicja Lemus, [address] [place] [address], [id number]. tel:[phone] [facility], [address] [place] [address] Dr [address] 1000[place]y [place], [id number], [place] tel:[phone] CVR - [place] Varicose veins of right lower extremity with other complications 3 Joby Felder. [address] [place] [address], [place], [address], [place]. tel:[phone] Referring Provider: Alicja Lemus, [address] [place] [address], [address]. tel:[phone] Office/Outpt E&M Established 10 Mins - [facility], [address] [place] [address] Dr [address] 1000[place]y [place], [id number], [place] tel:[phone] CVR - [place] Varicose veins of bilateral lower extremities with other complications Jan- 3 Joby Felder. [address] [place] [address], [place], [address], [place]. tel:[phone] Referring Provider: Alicja Lemus, [address] [place] [address], [id number]. tel:[phone] [facility], [address] [place] [address] [facility] [address], [place], [id number], tel:[phone] CVR - [facility] Chronic venous htn w oth comp of bilateral low extrm 3 Joby JOHANSEN FACS T GLORIA Felder. [address] [place] [address], [place], [address], [place]. tel:[phone] Referring Provider: Alicja Lemus, [address] [place] [address], [facility]. tel:[phone] Office/Oupt E&M New Pt 45 Mins [facility], [address] [place] [address] [facility] [address], [place], [id number], [place] tel:[phone] CVR - [facility] Varicose veins of bi low extrem w oth complications Pain in right lower legPain in left lower legPruritus, unspecifiedFl ail joint, unspecified jointPain in right legPain in left leg 3 Joyb JOHANSEN FACS T GLORIA Felder. [address] [place] [address], [place], [address], [place]. tel:[phone] Referring Provider: Alicja Lemus, [address] [place] [address], [facility]. tel:[phone] Family History Family Member Type Diagnosis Age At Onset No Information Payers Payer name Insurance type Covered republican ID Leesa valadez(s) [facility] CI [id number] Social History Type Description Quantity Date Captured [...]
[2024-08-17 20:04] LABS: IgA 123 mg/dL (70-320); IgG 1632 mg/dL (600-1540); IgM 73 mg/dL (50-300)
[2024-08-30 23:34] LABS: Immunoglobulin E 208 kU/L (<OR=114)
== END 2024-08-16 09:54 | disposition home or self-care (01) ==
LOC: HO.LAB 09:53
PROVIDERS: PCP Physician Assistant; Visit Provider Hospitalist
DX: J96.11 Chronic respiratory failure with hypoxia (principal); J96.12 Chronic respiratory failure with hypercapnia; J44.1 Chronic obstructive pulmonary disease with (acute) exacerbation; J44.89 Other specified chronic obstructive pulmonary disease; D80.1 Nonfamilial hypogammaglobulinemia
CPT/HCPCS: 36415; 80048; 82784; 82785; 82803; 85025; 99212

== ENCOUNTER 2024-08-16 09:53 | Outpatient (AMB) | payer OTHER, SELFPAY ==
[2024-08-16 09:56] VITALS: BP 100/58; PULSE 68; O2SAT 99; BMI 23.2
--- NOTE | 2024-08-16 09:56 | MHC.OFFVIS ---
Vital Signs 08/16/24 09:56 Height 5 ft 3 in Weight 131 lb 2.801 oz BMI 23.2 BP 100/58 L Blood Pressure Location Rt brachial Position Sitting Pulse 68 Pulse Source Pulse Oximeter Pulse Oximetry (%) 99 Oxygen Delivery Method Room Air Intake Visit Reasons: COPD Advanced Manufacturing Consultant Required: No Accompanied by: Self / Same As Patient Allergies ampicillin Allergy (Severe, Verified 08/16/24 10:00) Rash and Hives azithromycin Allergy (Severe, Verified 08/16/24 10:00) Rash/Hives methylprednisolone Allergy (Severe, Verified 08/16/24 10:00) Rash and Hives potassium Allergy (Severe, Verified 08/16/24 10:00) Rash and Hives theophylline Allergy (Severe, Verified 08/16/24 10:00) Rash and Hives aminophylline Allergy (Intermediate, Verified 08/16/24 10:00) Rash and Hives amoxicillin [From Augmentin] Allergy (Intermediate, Verified 08/16/24 10:00) Rash clavulanic acid [From Augmentin] Allergy (Intermediate, Verified 08/16/24 10:00) Rash clindamycin Allergy (Intermediate, Verified 08/16/24 10:00) Rash adhesive Allergy (Unknown, Verified 08/16/24 10:00) Rash Polyethylene Glycol Allergy (Severe, Uncoded 04/12/24 11:23) Rash and Hives Tape Allergy (Severe, Uncoded 04/12/24 11:23) Rash and Hives HPI Comments Details: The patient is a 64-year-old woman with a known history of severe COPD in addition to obstructive sleep apnea. The patient continues to using BiPAP at night the BiPAP therapy continues to be affecting beneficial. She has the BiPAP every night for more than 4 hours a night. She has been getting supplies through [employer]. I will request a download to see how effective it is for her. She continues to use her respiratory therapy. She has not required any prednisone. She continues to have significant shortness of breath, moderate severity. She does have oxygen at home that she uses. She is also using her BiPAP pressures 13/03. The therapy seems to be affecting beneficial. We did download the machine her AHI is down to 3.4. Her average use is more than 6 hours. The therapy appears to be very effective beneficial. She does use a nasal mask although sometimes she does have air leakage issues. She should consider using a fullface mask. Will try [id number] mask at this time. On examination she does have significant wheezing or rhonchi likely from bronchitis and COPD exacerbation. At this time we need to treat this before gets any worse. 12/29/2022 the patient is here for pulmonary follow-up visit. She continues to have daytime drowsiness. Her [place] score is elevated 10/24. She does use the BiPAP every night. She also has a history of COPD and chronic hypercarbic respiratory failure. She had been on noninvasive ventilator in the past but then insurance issues resulted in the discontinuation of the noninvasive ventilator and she was placed back on BiPAP. seems like the BiPAP therapy has not been effective in helping her with her ongoing daytime drowsiness. Therefore the patient did undergo a repeat sleep study. Initially was requested as a split study. But, since the patient already had a positive sleep study in 2013 demonstrating moderate sleep apnea the patient had a titration study at this time. The patient did have an elevated end-tidal CO2 of 57 mm Hg. The patient was titrated and based on the titration measurements the recommendation was switch the patient over to an auto BiPAP. the patient currently owns a regular BiPAP that she is had for about a years. At this point the therapy is not effective for her and we will request a auto BiPAP for replacement machine. The patient also was diagnosed with osteopenia and osteoporosis. She is concerned about the inhaled steroids. Currently she is on Bevespi and QVAR. Then after that she will start Trelegy 200 that she has at home. When she completes that then will be reasonable to switch her to the Trelegy 100 to try to minimize inhaled steroids. 03/31/2023 the patient is here for a pulmonary follow-up visit. She did get a new BiPAP. The auto BiPAP does not appear to be working well for her. She still having hard time with breathing. Has a hard time tolerating the pressures. She I did adjust her pressure setting some increasing the pressures overall. In the meantime will also requested a blood gas demonstrating an elevated CO2 of 57 mmHg consistent with chronic hypercarbic respiratory failure. Therefore, seems that she is failing BiPAP does not tolerate the pressures and is not improving her CO2. The patient does have significant COPD and resulting in the chronic hypercarbic respiratory failure. Therefore going back to noninvasive ventilator will improve her gas exchange, improved prognosis and decrease risk some hospitalizations. The patient had been on a noninvasive ventilator previous to the BiPAP and he was she was actually doing a lot better at that time. Therefore we will request her start a trilogy noninvasive ventilator from her [employer], [employer]. 07/13/2023 the patient is here for a pulmonary follow-up visit. The patient has been doing fairly okay. She did which over to an astral noninvasive ventilator in view of her hypercarbia. Although she is having hard time adjusting. She feels that she has getting a lot of gas pain. I did decrease the tidal volume to around 440 and also decrease her respiratory rate down from 15 to 13. I am hoping that this is enough. Otherwise will continue to adjust the machine accordingly. Will also have her repeat the blood gas on before the next visit in 3-4 months. The patient has been using her Trelegy inhaler with good effect. She continues use her respiratory therapy as well. She continues to have shortness breath with activity which explained to her is typical of her underlying obstructive airway disease. She is having hard time sleeping. Will go ahead and start her on small dose of Ambien in order for her to sleep better and tolerate her noninvasive ventilator. 10/19/2023 the patient is here for pulmonary follow-up visit. She is doing okay. She has tolerating the astral. The settings well tolerated. Her AHI is below 5. Will go ahead and check her blood gas some point. In the meantime she did have pulmonary function studies. I did personally review them with the patient. Seems like she has some moderate to severe COPD. Seems to be worsening from prior. We did do alpha-1 testing today specially with the family history. She continues on her respiratory therapy she is wondering if there is anything else other that she can take for her breathing. At this point is unlikely that any further therapies going to be effective specially since his mainly related to the heat and humidity the sometimes cause the COPD symptoms to worsen. I do believe that she needs pulmonary rehabilitation. She will look into online rehabilitation at this time. She will continue to use the noninvasive ventilator as it has been affecting beneficial. And she has tolerating the mask well. 04/12/2024 the patient is here for a pulmonary follow-up visit. Overall she is doing well. Sometimes she is having hard time with her noninvasive ventilator. She is still struggling with a little bit. Sometimes she wakes up at 1 or 02:00 o'clock in the morning and can not go back to sleep. She does try sleep aids but it did not help keep her sleep. I do believe trazodone may be effective for her. She can try half to full tablet 1 hour before sleep. In addition to that if he continues to have difficulties we can try to have respiratory from her [employer] company going adjusted ventilator. Will go ahead request blood work including a blood gas to make sure that her CO2 is improving on the noninvasive ventilator. The patient is also complaining of back pain along with some shortness of breath. She has significant sacroiliac disease. Indeed she may have more musculoskeletal issues although working always do an x-ray whenever she has the opportunity to do so to make sure that she is not developing any pulmonary or lung manifestations. Currently her respiratory exam is reassuring. I do believe the Trelegy is enough at this time. I do not believe that additional therapies are warranted. 08/16/2024 the patient is here for a pulmonary follow-up visit. Overall the patient is doing well from a respiratory status. She did have a sleep study back in May and demonstrated that she no longer has sleep apnea or any evidence of any significant hypercarbia. Therefore she stopped using the noninvasive ventilator. She has been sleeping without doing fine. The patient also has continue to use her respiratory inhalers. Although she has not been a sickly. She had significant amount of weight loss and this overall helped her sleep issues and also helped her respiratory symptoms. She does have significant back issues and has chronic pain issues. She is working closely with her doctors to help her relieve some of his discomfort. This right now is the biggest limiting step for her. In the meantime we did look at her previous blood work. Back in March her pCO2 was 50. Will plan to repeat her blood work to make sure that she is not retaining more CO2 specially that she is off the noninvasive ventilator at this time. Will follow-up in 6-8 months if she has any issues prior to that she will call for an earlier assessment. [facility] Medical History (Updated 04/12/24 @ 11:48 by Benoit Vazquez MD) Asthma-COPD overlap syndrome Fibromyalgia Hypothyroidism Glaucoma Obstructive sleep apnea Menieres disease Blood D-dimer assay positive Sore throat Vocal cord dysfunction Hypogammaglobulinemia Chronic respiratory failure COPD (chronic obstructive pulmonary disease) Dyspnea Surgical History Hx of shoulder surgery History of hip surgery S/P iridectomy H/O hemorrhoidectomy H/O abdominoplasty H/O inguinal hernia repair H/O gastric bypass History of colon resection Hx of section Family History Father COPD (chronic obstructive pulmonary disease) Mother Type 2 diabetes mellitus Hypertension Renal insufficiency Family/Other Colon cancer AIDS Schizophrenia Social History Alcohol intake: current Alcohol intake frequency: does not drink Patient Tobacco Use Status: Never used Tobacco Current occupational status: disabled Review of Systems Const Denies chills, Denies fatigue, Denies fever(s) and Reports weight loss ENT Denies dizziness Card Denies chest pain, Denies leg edema, Denies lightheadedness, Denies palpitations, Denies dyspnea on exertion, Denies orthopnea and Denies other Resp Denies cough and Denies dyspnea on exertion GI Denies hematochezia and Denies change in stool character Musc Denies abnormal gait, Reports back pain, Reports myalgias, Denies muscle weakness, Denies numbness, Denies radiating pain into limb and Denies tingling Skin/Breast Denies rash Neuro Denies Abnormal speech present, Denies abnormal gait, Denies dizziness, Denies numbness and Denies tingling Endo Denies fatigue and Denies palpitations Physical Exam Vital Signs: Last Vital Signs Pulse 68 08/16/24 09:56 BP 100/58 L 08/16/24 09:56 Pulse Ox 99 08/16/24 09:56 Oxygen Delivery Method Room Air 08/16/24 09:56 BMI result Body Mass Index 23.2 Const General: alert Neck Neck: Yes normal visual inspection, Yes full ROM and Yes no lymphadenopathy Chest Chest palpation & inspection: normal inspection of the chest Resp Auscultation: diminished lung sounds Cardio Rate: regular rate Rhythm: regular rhythm Heart sounds: S1 normal heart sound present and S2 normal heart sound present GI Palpation (GI): Soft to palpation and nontender Auscultation: normal bowel sounds Skin Lesions: lesion noted (from cupping) Neuro Speech: No Abnormal speech present Assessment & Plan Assessment & Plan (1) Chronic respiratory failure: Code(s): J96.10 - Chronic respiratory failure, unspecified whether with hypoxia or hypercapnia Category: Medical Qualifiers: Respiratory failure complication: hypoxia and hypercapnia Qualified Code(s): J96.11 - Chronic respiratory failure with hypoxia; J96.12 - Chronic respiratory failure with hypercapnia (2) COPD (chronic obstructive pulmonary disease): Code(s): J44.9 - Chronic obstructive pulmonary disease, unspecified Category: Medical Qualifiers: COPD type: COPD with acute exacerbation Qualified Code(s): J44.1 - Chronic obstructive pulmonary disease with (acute) exacerbation (3) Hypogammaglobulinemia: Code(s): D80.1 - Nonfamilial hypogammaglobulinemia Category: Medical (4) Dyspnea: Code(s): R06.00 - Dyspnea, unspecified Category: Medical Qualifiers: Dyspnea type: dyspnea on exertion Qualified Code(s): R06.00 - Dyspnea, unspecified (5) Asthma-COPD overlap syndrome: Code(s): J44.89 - Other specified chronic obstructive pulmonary disease Category: Medical Plan stopped PAP therapy not using Trazodone continue Trelegy OG as needed duonebs continue IgG augmentation therapy through Immunology repeat VBG and bloodwork CXR F/U 6-8 months Orders: Orders Venous Blood Gas Today - Other specified chronic obstructive pulmonary disease Immunoglobulin E Today - Other specified chronic obstructive pulmonary disease Immunoglobulins,IgG IgA IgM Today J44 - Other specified chronic obstructive pulmonary disease Complete Blood Count Auto Diff Today - Other specified chronic obstructive pulmonary disease Basic Metabolic Panel Today - Other specified chronic obstructive pulmonary disease Coding Level of Care Code Est Pt Level 4 (59331) Diagnoses Chronic respiratory failure with hypoxia and hypercapnia J96.11; J96.12 Respiratory failure complication: hypoxia and hypercapnia Chronic obstructive pulmonary disease with acute exacerbation J44.1 COPD type: COPD with acute exacerbation Hypogammaglobulinemia D80.1 Dyspnea on exertion R06.00 Dyspnea type: dyspnea on exertion Asthma-COPD overlap syndrome J44.89 Time Spent (min) 17
--- OUTSIDE RECORDS SUMMARY | 2024-08-16 11:21 | XMS_ITS | Clinical Summary ---
Author Organization [facility] Address [address] [place] [address] Care Team Providers Care Woodyard Operator Name Role Phone Unavailable Primary Care Provider Unavailabl e Source Comments PLEASE NOTE, if this patient is a minor, it may be UNLAWFUL to discuss sensitive information that is contained in these records (such as FAMILY PLANNING, MENTAL HEALTH or SUBSTANCE ABUSE) with the minor patient's parent or other person without the patient's specific authorization.[facility] Immunizations Immunization Administration Dates Next Due Moderna COVID-19 Vaccine, re d cap blue label, 12+ Primary Series 09/11/2020,08/14/2020 Social History Tobacco Use Types Packs/Day Years Used Date Smoking Tobacco: Never Assessed Social Connections Answer Date Recorded Social Connections and Isolation 0 09/24/2023 Financial Resource Strain Answer Date R ecorded Financial Resource Strain 0 2023 Stress Answer Date Recorded Stress 0 09/24/2023 Physical Activity Answer Date Recorded Physical Activity 0 09/24/2023 Food Insecurity Answer Date Recorded Food 0 09/24/2023 Transportation Needs Answer Date Record ed Transportation 0 09/24/2023 Housing Stability Answer Date Recorded Housing 0 09/24/2023 Safety and Environment Answer Date Gelacio rded Safety 0 09/24/2023 Utilities Answer Date Recorded Utilities 0 09/24/2023 Employment Answer Date Recorded Employment 0 09/24/2023 Comments Unknown Sex and Gender Information Value Date Recorded Sex Assigned at Not on file Legal Sex Female 8:41 AM PDT Gender Identity Not on file Sexual Orientation Not on file Plan of Treatment Health Maintenance Due Date Last Done Comments Anxiety Screening 1960 Diabetes Screening 1960 HPV Screening 1960 Hepatitis C Screening 1960 Lipid Screening 1960 Pap + HPV 1960 Tobacco Screening 1960 HIV Screening 08/06/1975 Hypertension Screening (#1) 1978 Imm-DTaP/Tdap/Td (1 - Tdap) 08/06/1979 Cervical Cancer Screening 1981 Pap Smear 1981 Breast Cancer Screening (Mammogram) 2000 CT Colonography 2005 Colonoscopy 2005 Colorectal Cancer Screening 2005 FIT/gFOBT 2005 Fecal DNA 2005 Flexible Sigmoidoscopy 2005 Imm-Zoster, Recombinant (1 of 2) 2010 Abg-FFNAK-14 ( season) 2023 021, 08/14/2020 Imm-Influenza (#1) 2023 Alcohol and Drug Screen 04/26/2024 Depression Annual Screen 04/26/2024 Cervical Ablation/Cold-Knife Conization Discontinued Cervical Cryotherapy Discontinued Colposcopy Discontinued Endometrial Biopsy Discontinued Excision/Leep Discontinued HPV Genotyping Discontinued Vaginal Pap Discontinued Vulvoscopy Discontinued Insurance [facility] INSURANCE Member Subscriber Plan / Payer (Ef fective 2017-Present) Name:Ann Knox Relation to Subscriber:Self Name:Ann Knox Payer ID:[id number] Type:Indemnity Address: [address] [id number]
--- OUTSIDE RECORDS SUMMARY | 2024-08-16 11:21 | XMS_ITS | Clinical Summary ---
Author Organization [address] [facility] Address [address] [place] [address] Phone Care Team Providers Care Spray Ii Painter Name Role Phone Berry Lenz Primary Care Provider [phone] Allergies Active Allergy Reactions Criticality Noted Date Comments Adhesive Tape-Silicones 05/05/2016 Aminophylline 05/05/2016 Ampicillin Rash 06/02/2016 Methylprednisolone 05/05/2016 Polyethylene Glycol 05/05/2016 Potassium 05/05/2016 Theophylline 07/30/2016 Medications bisacodyL (DULCOLAX) 5 mg EC tablet Take 2 tabs by mouth right before beginning bowel prep. Follow instructions given by office for timing. 05/08/19 23 Active sod sulf-pot chloride-mag sulf (Sutab) 1.479-0.188- 0.225 gram tablet Take 188 mg by mouth See Admin Instructions. 08/19/19 23 Active baclofen (LIORESAL) 10 mg tablet 3 times daily. 04/07/20 22 Active clonazePAM (KlonoPIN) 1 mg tablet as needed. 03/17/20 22 Active triamterene-hydroC HLOROthiazide (DYAZIDE) 37.5-25 mg per capsule as needed. 12/18/19 20 Active meclizine (ANTIVERT) 25 mg tablet Take by mouth as needed. Active ondansetron ODT (ZOFRAN-ODT) 4 mg disintegrating tablet Take 1 tablet (4 mg total) by mouth every 8 (eight) hours if needed. Active mometasone (ELOCON) 0.1 % ointment Apply as a thin film to the perianal skin twice daily 10/22/19 21 Active loteprednol (Alrex) 0.2 % ophthalmic suspension 05/26/19 19 Active magnesium oxide 400 mg magnesium capsule 400 mg. 07/31/19 17 Active UNABLE TO FIND Respiratory Therapy Supplies (NEBULIZER) Device 05/05/2016 Sig: USE DIRECTED. 05/05/19 17 Active albuterol 2.5 mg /3 mL (0.083 %) nebulizer solution USE 1 UNIT DOSE IN NEBULIZER EVERY 4 TO 6 HOURS NEEDED. 05/05/19 17 Active levothyroxine (SYNTHROID, LEVOTHROID) 88 mcg tablet Take 1 tablet (88 mcg total) by mouth 1 (one) time each day. 05/05/19 17 Active beclomethasone dipropionate (QVAR REDIHALER) 80 mcg/actuation HFA aerosol breath activated inhaler INHALE 2 PUFFS DAILY IN THE MORNING. RINSE MOUTH AFTER USE. 07/31/19 17 Active tiotropium-olodate roL (Stiolto Respimat) 2.5-2.5 mcg/actuation mist inhaler 5mcg once a day 05/05/19 17 Active calcium carbonate-vitamin D3 600 mg-5 mcg (200 unit) per tablet Take by mouth. Activ e omeprazole (PriLOSEC) [address] capsule Take 40 mg by mouth daily. Active semaglutide (Wegovy) 1 mg/0.5 mL injection penIndications:Hx of obesity Inject 1 mg under the skin every 7 (seven) days. 4 mL 03/21/20 24 Active Active Problems Problem Noted Date Diagnosed Date Labral tear of left hip joint 01/04/2020 Diverticulosis 07/22/2018 Tubular adenoma 07/22/2018 Asthma 05/21/2017 Closed angle glaucoma 05/21/2017 Overview (02/07/2024): S/p iridectomy Depression 05/21/2017 Hypothyroid 05/21/2017 Meniere's disease 05/21/2017 Irritable bowel syndrome 01/13/2017 Hypogammaglobulinemia ([facility] V24) 11/30/2016 Obstructive sleep apnea syndrome in adult 2016 Respiratory failure with hypoxia (CMS/[facility] V24, C PA/HCC V28) 11/30/2016 Overview (02/07/2024): Comments: chronic, HS O2 Gastroesophageal reflux disease 07/30/2016 Pulmonary emphysema (CMS/HCC V24, CMS/HCC V28) 1 Overview (02/07/2024): Comments: Centrilobular Encounters Date Type Department Care Team Description 07/04/2024 10:15 AM EDT Office Visit Bariatric Surgery - [facility] [address] [facility] [address] [place] [address] Sushma Chong PA Hx of obesity (Primary Dx) from Last 3 Months Surgical History Surgery Date Site/Laterality Comments SECTION PROCEDURE: HISTORICAL EYE SURGERY PROCEDURE: HISTORICAL EYE SURGERY; COMMENT: iridectomy OTHER SURGICAL HISTORY PROCEDURE: HISTORY OTHER; COMMENT: proctoplexy with sigmoid resection HERNIA REPAIR 2006 PROCEDURE: HISTORICAL HERNIA REPAIR/ING OTHER SURGICAL HISTORY 09/2015 PROCEDURE: NV GASTRIC RSTCV W/O BYP VERTICAL-BANDED GASTROPLY; COMMENT: gastric sleeve HEMORRHOID SURGERY PROCEDURE: DESTRUCTION OF HEMORRHOIDS; COMMENT: hemorrhoidectomy LAPAROSCOPIC GASTRIC BANDING 2005 PROCEDURE: LAP ADJUSTABLE GASTRIC BAND COLONOSCOPY 07/20/2016 PROCEDURE: HISTORICAL COLONOSCOPY; COMMENT: Minimal Diverticulosis. Repeat 3 yrs UPPER GASTROINTESTINAL ENDOSCOPY 04/20/2012 PROCEDURE: NV UPPER GI ENDOSCOPY PERFORMED; COMMENT: Negative for Barretts COLONOSCOPY 08/11/2005 PROCEDURE: HISTORICAL COLONOSCOPY; COMMENT: tubular adenoma COLONOSCOPY 02/21/2014 PROCEDURE: HISTORICAL COLONOSCOPY; COMMENT: Diverticulosis, internal hemorrhoids COLONOSCOPY 04/20/2012 PROCEDURE: HISTORICAL COLONOSCOPY; COMMENT: Tubular adenoma COLONOSCOPY 06/17/2010 PROCEDURE: HISTORICAL COLONOSCOPY; COMMENT: Normal except for a few very tiny diverticula. Repeat 3 yrs COLONOSCOPY 10/02/2008 PROCEDURE: HISTORICAL COLONOSCOPY; COMMENT: Minimal diverticulosis. Repeat 3 yrs OTHER SURGICAL HISTORY 11/09/2007 PROCEDURE: HISTORICAL PANNICULECTOMY HERNIA REPAIR 11/09/2007 PROCEDURE: HISTORICAL HERNIA REPAIR/RICH COLONOSCOPY 09/29/2006 PROCEDURE: HISTORICAL COLONOSCOPY; COMMENT: Diverticulosis. No recurrent colon neoplasia. Repeat 3 yrs COLONOSCOPY 08/06/2004 PROCEDURE: HISTORICAL COLONOSCOPY; COMMENT: Diverticulosis. No recurrent colon neoplasia. Repeat 1.5 yrs UPPER GASTROINTESTINAL ENDOSCOPY 06/17/2010 PROCEDURE: NV UPPER GI ENDOSCOPY PERFORMED; COMMENT: No evidence reflux damage COLONOSCOPY 03/05/2004 PROCEDURE: HISTORICAL COLONOSCOPY; COMMENT: Partial polpectomy with tattooing COLONOSCOPY 02/12/2004 PROCEDURE: HISTORICAL COLONOSCOPY; COMMENT: Ascending colon polyp & mass of the sigmoid colon. UPPER GASTROINTESTINAL ENDOSCOPY 11/02/1997 PROCEDURE: NV UPPER GI ENDOSCOPY PERFORMED; COMMENT: Bile reflux, small hiatal hernia OTHER SURGICAL HISTORY 02/2004 PROCEDURE: NV LAPAROSCOPY COLECTOMY PARTIAL W/ANASTOMOSIS; COMMENT: Invasive adenocarcinoma Medical History Medical History Date Comments Asthma 05/21/2017 DX:Asthma Closed angle glaucoma 05/21/2017 DX:Closed angle glaucoma; COMMENT: S/p iridectomy Depression 05/21/2017 DX:Depression Gastroesophageal reflux disease 07/30/2016 DX:Gastroesophageal reflux disease History of anal fissures 01/13/2017 DX:Hist ory of anal fissures History of colon cancer 01/30/2016 DX:Histo ry of colon cancer; COMMENT: Stage II 2003 History of weight loss surgery 05/21/2017 D X:History of weight loss surgery; COMMENT: Lap band 2005, gastric sleeve 2015 Hypogammaglobulinemia (CMS/HCC V24) 11/30/2016 DX:Hypogammaglobulinemia (HCC) Hypothyroid 05/21/2017 DX:Hypothyroid Irritable bowel syndrome 01/13/2017 DX:Irri table bowel syndrome Meniere's disease 05/21/2017 DX:Meniere's d isease Obstructive sleep apnea syndrome in adult 12/01/19 17 DX:Obstructive sleep apnea syndrome in adult Pulmonary emphysema (CMS/HCC V24, CMS/HCC V28) 01/30/2016 DX:Pulmonary emphysema (HCC) ; COMMENT: Comments: Centrilobular Respiratory failure with hyp oxia (CMS/HCC V24, CMS/HCC V28) 11/30/2016 DX:Respiratory failure with hypoxia ([facility]); COMMENT: Comments: chronic, HS O2 Diverticulosis 07/22/2018 DX:Diverticulosi s Tubular adenoma 07/22/2018 DX:Tubular adeno ma Family History Medical History Relation Name Comments COPD Father COPD Mother Autoimmune disease Neg Hx Breast cancer Neg Hx Colon cancer Neg Hx Coronary artery disease Neg Hx Diabetes Neg Hx Heart attack Neg Hx Heart failure Neg Hx Hyperlipidemia Neg Hx Hypertension Neg Hx Mental illness Neg Hx Prostate cancer Neg Hx Sleep apnea Neg Hx Thyroid disease Neg Hx Relation Name Status Comments Father Mother Social History Tobacco Use Types Packs/Day Years Used Date Smoking Tobacco: Never Smokeless Tobacco: Never Tobacco Cessation:Counseling Given: Not Answered Alcohol Use Standard Drinks/Week Comments No 0 (1 standard drink = 0.6 oz pur e alcohol) Comments Unknown Sex and Gender Information Value Date Recorded Sex Assigned at Not on file Legal Sex Female 11:34 AM EST Gender Identity Not on file Sexual Orientation Not on file Obstetrics History Last Filed Vital Signs Vital Sign Reading Time Taken Comments Blood Pressure 124/75 07/04/2024 10:09 AM EDT Pulse 69 07/04/2024 10:09 AM EDT Temperature - - Respiratory Rate - - Oxygen Saturation - - Inhaled Oxygen Concentration - - Weight 59.9 kg (132 lb) 07/04/2024 10:09 AM EDT Height 160 cm (5' 3 ) 07/04/2024 10:09 AM EDT Body Mass Index 23.38 07/04/2024 10:09 AM EDT Plan of Treatment Health Maintenance Due Date Last Done Comments Breast Cancer Screening 1960 Pneumococcal Vaccine: 50+ Years (1 of 2 - PCV) 08/06/1979 Pneumococcal Vaccine: Pediatrics (0 to 5 Years) and At-Risk Patients (6 to 64 Years) (1 of 2 - PCV) 08/06/1979 Zoster Vaccines (1 of 2) 08/06/1979 Cervical Cancer Screening: P ap Smear 1981 Hepatitis B Vaccines (2 of 3 - 19+ 3-dose series) 09/29/2010 09/01/2010 DTaP,Tdap,and Td Vaccines (2 - Td or Tdap) 07/13/2020 07/13/2010 RSV Immunization Adult Patients (1 - Risk 60-74 years 1-dose series) 2020 Depression Screening 04/04/2022 HIV Screening 04/04/2022 Hepatitis C Screening 04/04/2022 Osteoporosis Screening (Bone Density Screening) 04/04/2022 Social Influencers of Health Screening 04/04/2022 COVID-19 Vaccine (4 - 2023-2 5 season) 2023 04/14/2021, 09/11/2020, 08/14/2020 Influenza Vaccine (Season Ended) 2024 02/08/2023, 03/24/2022, 02/27/2021 Colorectal Cancer Screening: Colonoscopy 08/28/2032 08/28/2022 HIB Vaccines Aged Out No longer eligi ble based on patient's age to complete this topic HPV Vaccines Aged Out No longer eligi ble based on patient's age to complete this topic Hepatitis A Vaccines Aged Out No long er eligible based on patient's age to complete this topic IPV Vaccines Aged Out No longer eligi ble based on patient's age to complete this topic MMR Vaccines Aged Out No longer eligi ble based on patient's age to complete this topic Meningococcal ACWY Vaccine Aged Out N o longer eligible based on patient's age to complete this topic Meningococcal B Vaccine Aged Out No l onger eligible based on patient's age to complete this topic RSV Immunization Patients Under 20 months Aged Out No longer eligible b ased on patient's age to complete this topic Varicella Vaccines Aged Out No longer eligible based on patient's age to complete this topic Procedures Procedure Name Priority Date/Time Associated Diagnosis Comments COLONOSCOPY Routine 08/28/2022 from Last 3 Months or Most Recently Relevant to Health Maintenance Results * Colonoscopy (08/28/2022) Colonoscopy no interpretation , abstracted Anatomical Region Laterality Modality Other Historical Provider MD HEALTH MAINTENANCE Final Result from Last 3 Months or Most Recently Relevant to Health Maintenance Insurance [facility] [employer] [place] [id number] Advance Directives Documents on File Type Date Recorded Patient Healthcare Architect Expl anation Health Care Decision (hx) 09/08/2016 AD REY DIRECTIVE Health Care Decision (hx) 09/08/2016 AD REY DIRECTIVE Health Care Decision (hx) 09/08/2016 AD REY DIRECTIVE Health Care Decision (hx) 09/08/2016 AD REY DIRECTIVE Health Care Decision (hx) 09/08/2016 AD REY DIRECTIVE Care Teams Spray Ii Painter Relationship Specialty Start Date End Date Berry Lenz PA [address] [place] [id number] PCP - General 10/27/23
--- OUTSIDE RECORDS SUMMARY | 2024-08-16 11:21 | XMS_ITS | Clinical Summary ---
Author Organization [facility] Address [address] [place], [place] [id number] Care Team Providers Care Storm Window Installer Name Role Phone Tika Hou MD Primary Care Provider [phone] Allergies Active Allergy Reactions Criticality Noted Date Comments Adhesive Tape 01/04/2020 Aminophylline 01/04/2020 Ampicillin 01/04/2020 Methylprednisolone 05/05/2016 Polyethylene Glycol 05/05/2016 Potassium 05/05/2016 Potassium Iodide 01/04/2020 Theophylline 07/30/2016 Medications Medication Sig Dispensed Refills Start Date End Date Status clonazePAM (KlonoPIN) 0.5 MG tablet TAKE ONE TABLET BY MOUTH NIGHTLY 0 12/19/2019 Active HYDROcodone-acetami nophen (NORCO) 5-325 MG per tablet TAKE ONE TABLET BY MOUTH EVERY 4 TO 6 HOURS NEEDED FOR PAIN 0 12/29/2019 Active ibuprofen (ADVIL,MOTRIN) 600 MG tablet Take 600 mg by mouth every 6 (six) hours as needed. for pain 0 12/29/2019 Active HYQVIA 20 GM/200ML KIT 0 12/27/2019 Active levothyroxine (SYNTHROID, LEVOXYL) tablet 88 mcg TAKE ONE TABLET BY MOUTH EVERY DAY 0 12/18/2019 Active meloxicam (MOBIC) 15 MG tablet Take 15 mg by mouth daily as needed. 0 11/21/2019 Active omeprazole (PriLOSEC) 20 MG capsule Take 20 mg by mouth daily. 0 10/19/2019 Active pregabalin (LYRICA) 225 MG capsule Take 225 mg by mouth 2 (two) times a day. 0 12/19/2019 Active triamterene-hydroch lorothiazide (DYAZIDE) 37.5-25 MG per capsule Take 1 capsule by mouth daily. as directed 0 12/18/2019 Active vitamin C (ASCORBIC ACID) 250 MG tablet Take 250 mg by mouth daily. 0 Active albuterol (ACCUNEB) 1.25 MG/3ML nebulizer solution Take 1 ampule by nebulization every 6 (six) hours as needed for wheezing. 0 Active beclomethasone (QVAR) 80 MCG/ACT inhaler Inhale 1 puff into the lungs 2 (two) times a day. 0 Active Tiotropium Spring-Olodaterol (STIOLTO RESPIMAT IN) Inhale into the lungs. 0 Active calcium citrate-vitamin D (CITRACAL+D) 315-200 MG-UNIT per tablet Take 1 tablet by mouth 2 (two) times a day. 0 Active [place]-3 Fatty Acids (FISH OIL) 1000 MG CPDR Take by mouth. 0 Active lidocaine (LIDODERM) 5 % Place 1 patch onto the skin daily. Remove & Discard patch within 12 hours or as directed by MD 0 Active magnesium oxide 400 (241.3 Mg) MG TABS tablet Take 400 mg by mouth 2 (two) times a day. 0 Active Active Problems Problem Noted Date Diagnosed Date Labral tear of left hip joint 01/04/2020 Social History Tobacco Use Types Packs/Day Years Used Date Smoking Tobacco: Never Assessed Sex and Gender Information Value Date Recorded Sex Assigned at Not on file Gender Identity Not on file Sexual Orientation Not on file Job Start Date Occupation Industry Not on file Not on file Not on file Last Filed Vital Signs Vital Sign Reading Time Taken Comments Blood Pressure - - Pulse - - Temperature - - Respiratory Rate - - Oxygen Saturation - - Inhaled Oxygen Concentration - - Weight 73.9 kg (163 lb) 01/04/2020 8:01 AM EDT Height 160 cm (5' 3 ) 01/04/2020 8:01 AM EDT Body Mass Index 28.87 01/04/2020 8:01 AM EDT Plan of Treatment Health Maintenance Due Date Last Done Comments Hepatitis C Screening 1960 COVID-19 Vaccine (#1) 02/04/1961 Pneumococcal Vaccine (1 of 2 - PCV) 1966 Pneumococcal Vaccine (1 of 2 - PCV) 1966 Depression Screening 1972 BMI Counseling 1978 Preventative Health Evaluation 1978 DTap / Tdap / Td (1 - Tdap) 08/06/1979 Cervical Cancer Screening (P ap Smear) 1981 Colon Cancer Screening (Colonoscopy) 2005 Breast Cancer Screening (Mammogram) 2010 Shingrix-Zoster Vaccine (1 of 2) 2010 Influenza Vaccine (#1) 2023 RSV Adult > 60+ Yrs or Pregn ant (1 - 1-dose 75+ series) 08/06/2035 Hepatitis B Vaccines Aged Out No long er eligible based on patient's age to complete this topic RSV Ped < 20 months Aged Out No longe r eligible based on patient's age to complete this topic Care Teams Storm Window Installer Relationship Specialty Start Date End Date Tika Hou MD [address] [place] [id number] PCP - General Internal Medicine 12/27/19
--- OUTSIDE RECORDS SUMMARY | 2024-08-16 11:21 | XMS_ITS | Data Portability ---
Author Organization [place] - [facility], Allergy Address [address] [place] [id number] Care Team Providers Care Slider Assembler Name Role Phone LUIS ALBERTO CORCORAN Primary Care Provider Assessment Encounter Date Assessment Date Assessment LastModified by Organization Details LastModified Time 06/05/2024 06/05/2024 63yo female with asymmetric SNHL and history of Meniere's presents for evaluation of the ears. She reports that her hearing is worsening bilaterally, despite hearing aids. TMs are intact and well-aerated. EACs are without obstruction. Audiometric testing demonstrates stable asymmetric neurosensory hearing loss with significant decrease in right-sided word recognition. Reviewed that she is not a good candidate for cochlear technology at this time. Patient is scheduled for hearing aid adjustment at [facility]. Reviewed tinnitus triggers and masking strategies. Recommend mineral oil as needed for ear pruritus. [email or web address] Not available 06/05/2024 12:27:59 Plan of Treatment Reminders Order Date Submit Date Provider Last Modified By Organization Details Last Modified Time Details Appointments None recorded. Lab None recorded. Referral None recorded. Procedures None recorded. Surgeries None recorded. Imaging None recorded. Medication Orders mineral oil topical [id number] [id number], [address] [place], [address], 11:45:38 Patient TargetsNo targets recorded. Patient InstructionsNo instructions recorded. Reason for Referral None Reported. Results Created Date Observation Date Name Description Value Unit Range Abnormal Flag Note LastModifiedBy Organization Detail LastModifiedTime 06/05/19 25 audio gram No observ ation record ed. BARCODE Not Available 2024 18:19:20 Result Notes None recorded. 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 [id number] 108 Active 2021 Arnold-C hiari syndrome without spina bifida or hydrocep halus; Note: Date Diagnose d: 07/29/2021 12:55 PM (Q07.00) Not Available [facility] 4 03:03:08 Sensorin eural hearing loss 20788640 Active 2014 Sensorin eural hearing loss, unilater al, right ear, with unrestri cted hearing on the contrala teral side; Note: Date Diagnose d: 02/19/20 15 2:12 PM (H90.41) Not Available [facility] 4 03:03:09 Benign paroxysm al position al vertigo [id number] Completed 201811/26/2023 Benign paroxysm al vertigo, unspecif ied ear; Note: Date Diagnose d: 9 10:57 AM (H81.10) Not Available [facility] 4 03:03:06 Sensorin eural hearing loss of bilatera l ears 527436119 Active 2018 Sensorin eural hearing loss, bilatera l; Note: Date Diagnose d: 9 5:44 PM (H90.3) Not Available [facility] 4 03:03:07 Atypical facial pain 31389577 Active 2014 Facial pain, atypical ; Note: Date Diagnose d: 5 12:14 PM (350.2) ; Start Date : 10/19/19 15 Atypi zandra facial pain; Note: Date Diagnose d: 02/19/20 15 9:20 PM (G50.1) Not Available [facility] 4 03:03:09 Headache 52637445 Active 2021 Headache , unspecif ied; Note: Date Diagnose d: 2 9:36 AM (R51.9) Not Available [facility] 4 03:03:06 Dizzines s and giddines s 163072367 Active 2018 Light-he adedness ; Note: Date Diagnose d: 9 10:24 AM (R42) Dizzin ess and giddines s; Note: Date Diagnose d: 02/19/20 15 2:12 PM (R42) ; Start Date : 02/19/20 15 Not Available [facility] 4 03:03:08 Bilatera l hyperacu sis of ears 24303271638 58601 Active 2019 Hyperacu sis, bilatera l; Note: Date Diagnose d: 0 7:28 PM (H93.233 ) Not Available [facility] 4 03:03:08 Acute pharyngi tis 214338416 Active 2018 Sore throat (acute) NOS; Note: Date Diagnose d: 9 10:24 AM (J02.9) Not Available [facility] 4 03:03:07 Myoclonu s 12706531 Active 2018 Myoclonu s; Note: Date Diagnose d: 9 1:20 PM (G25.3) Not Available [facility] 4 03:03:06 Tinnitus of right ear 94273483683 08 Active 2014 Tinnitus , right ear; Note: Date Diagnose d: 02/19/20 15 2:12 PM (H93.11) Not Available [facility] 4 03:03:09 Itching of skin 843228634 Active 2021 Other pruritus ; Note: Date Diagnose d: 2 12:26 PM (L29.8) Not Available [facility] 4 03:03:08 M? ? ?ni? ? ?re's disease 88818131 Active 2014 Meniere' s disease, right ear; Note: Date Diagnose d: 02/19/20 15 9:20 PM (H81.01) Not Available [facility] 4 03:03:09 Dysphoni a 99018638 Active 2023 Hoarsene ss; Note: Date Diagnose d: 06/04/2023 3:21 PM (R49.0) Not Available [facility] 4 03:03:06 Dysphagi a 12128227 Active 2023 Dysphagi a, unspecif ied; Note: Date Diagnose d: 06/04/2023 3:21 PM (R13.10) Not Available [facility] 4 03:03:07 Itching of ear 780993775 Active 2024 PABLO GALLOWAY PA-C [address] [facility],[place] [address], [place], [address] , [facility] 11:43:36 Bilatera l tinnitus 24403711525 02 Active 2024 PABLO GALLOWAY PA-C [address] [facility],[place] [address], [place], [address] , [facility] 12:27:42 Problem Notes None recorded. Procedures Surgical History Date Name Laterality Status Provider Name and Address Organization Details Recorded Time 06/05/2024 Air & Speech Audio with Tymps (19796, 00253 & 10934) completed LEROY MAJANO [address] [facility],[place] [address], [place], [address], [facility] 06/05/2024 11:12:24 Imaging Results Imaging Date Name Status LastModified by Organiz ation Details LastModified Time 06/05/2024 audiogram completed BARCODE Information no t available 06/05/2024 18:19:20 Procedure Notes None recorded. Medical Equipment None Reported. Medications Name Sig Start Date Stop Date Status Note LastModified by Organization Details LastModified Time prednison e 10 mg tablet TAKE 4 TABLETS BY MOUTH DAILY FOR 2 DAYS, THEN TAKE 3 TABLETS DAILY FOR 2 DAYS, THEN TAKE 2 TABLETS DAILY FOR 2 DAYS, THEN TAKE 1 TABLET TERA active Not Available Not Available No t Available Cathflo Activase 2 mg intra-cat heter solution active Not Available Not Available Not Available doxycycli ne hyclate 100 mg capsule TAKE ONE CAPSULE BY MOUTH TWICE A DAY FOR 10 DAYS active Not Available Not Available No t Available ipratropi um 0.5 mg-albute rol 3 mg (2.5 mg base)/3 mL nebulizat ion soln INHALE THE CONTENTS OF 1 VIAL VIA NEBULIZE R TWO TIMES A DAY active Not Available Not Available No t Available albuterol sulfate 2.5 mg/3 mL (0.083 %) solution for nebulizat ion 11/18 completed Medicati on ID: [id number] D uration Value: 20 Brand Name: albutero l sulfate Send Method: E-Prescr ibed Sub s Allowed: subs OK Medic ationGen ericName : albutero l sulfate Not Available Not Available Not Available trazodone 50 mg tablet TAKE ONE TABLET BY MOUTH DAILY AT BEDTIME NEEDED FOR SLEEP active Not Available Not Available No t Available Concerta 18 mg tablet,ex tended release 08/24 completed Medicati on ID: [id number] D uration Value: 30 Brand Name: Concerta Send Method: E-Prescr ibed Sub s Allowed: subs OK Speci al Instruct ion: TAKE ONE TABLET BY MOUTH ONCE DAILY EVERY MORNING Medicati onGeneri cName: Concerta Not Available Not Available Not Available clotrimaz ole-betam ethasone 1 %-0.05 % lotion a small amount 2020 active Medicati on ID: [id number] D uration Value: 14 Prescri bed By Name: CASSI Mcgill nd Name: clotrima zole-bet amethaso ne Send Method: E-Prescr ibed Sub s Allowed: subs OK Speci al Instruct ion: Apply with finger to ear canal skin. Me dication GenericN tai: clotrima zole-bet amethaso ne Not Available Not Available Not Available meloxicam 15 mg tablet 09/27 completed Medicati on ID: [id number] Re ason: () Brand Name: meloxica m Send Method: E-Prescr ibed Sub s Allowed: subs OK Medic ationGen ericName : meloxica m Not Available Not Available Not Available prednison e 20 mg tablet TAKE ONE TABLET BY MOUTH TWICE A DAY FOR 5 DAYS active Not Available Not Available No t Available gabapenti n 400 mg capsule 06/02 completed Medicati on ID: [id number] B rand Name: gabapent in Send Method: E-Prescr ibed Sub s Allowed: subs OK Medic ationGen ericName : gabapent in Not Available Not Available Not Available clonazepa m 1 mg tablet TAKE ONE TABLET BY MOUTH NIGHTLY NEEDED. TAKE SPARINGL Y. active Not Available Not Available No t Available potassium chloride ER 10 mEq tablet,ex tended release Take 1 tablet by mouth once a day active Medicati on ID: [id number] P rescribe d By Name: Soyn De La Cruz nd Name: mihir chopra chloride Send Method: E-Prescr ibed Sub s Allowed: subs OK Medic ationGen ericName : maurau m chloride Medicat ion ID: [id number] P rescribe d By Name: Sony De La Cruz nd Name: mihir chopra chloride Send Method: E-Prescr ibed Sub s Allowed: subs OK Medic ationGen ericName : briaiu m chloride Not Available Not Available Not Available tramadol 50 mg tablet TAKE ONE TABLET BY MOUTH TWICE A DAY NEEDED FOR PAIN FOR 10 DAYS active Not Available Not Available No t Available triamtere ne 37.5 mg-hydroc hlorothia zide 25 mg capsule TAKE ONE CAPSULE BY MOUTH EVERY OTHER MORNING active Not Available Not Available No t Available lidocaine -prilocai ne 2.5 %-2.5 % topical cream APPLY ON THE CHEST PORT AT LEAST 30 MINUTES PRIOR TO ACCESS FOR IVIG INFUSION active Not Available Not Available No t Available ofloxacin 0.3 % ear drops 4 drop 2018 active Medicati on ID: [id number] D uration Value: 14 Prescri bed By Name: Sony Alcala nd Name: ofloxaci n Send Method: E-Prescr ibed Sub s Allowed: subs OK Medic ationGen ericName : ofloxaci n Not Available Not Available Not Available prednisol one acetate 1 % eye drops,omer pension PUT 1 DROP IN THE RIGHT EYE THREE TIMES A DAY active Not Available Not Available No t Available meclizine 25 mg tablet 2021 active Medicati on ID: [id number] D uration Value: 7 Brand Name: meclizin e Send Method: E-Prescr ibed Sub s Allowed: subs OK Speci al Instruct ion: Take 1 tab by mouth every 8 hours as needed for vertigo Medicati onGeneri cName: meclizin e Not Available Not Available Not Available doxycycli ne monohydra te 100 mg capsule TAKE ONE CAPSULE BY MOUTH TWICE A DAY FOR 20 DAYS active Not Available Not Available No t Available levothyro xine 50 mcg tablet TAKE ONE TABLET BY MOUTH EVERY MORNING ON AN EMPTY STOMACH active Not Available Not Available No t Available nortripty line 10 mg capsule Take 3 capsule by mouth at bedtime 02/27 completed Medicati on ID: [id number] Eduardo connell d By Name: Sony De La Cruz nd Name: nortript yline Se nd Method: E-Prescr ibed Sub s Allowed: subs OK Medic ationGen ericName : nortript yline Not Available Not Available Not Available Alrex 0.2 % eye drops,[facility] 03/09 completed Medicati on ID: [id number] D uration Value: 20 Brand Name: Alrex Se nd Method: E-Prescr ibed Sub s Allowed: subs OK Speci al Instruct ion: INSTILL 1 DROP INTO BOTH EYES TWICE A DAY NEEDED M lucy Mao Name: Alrex Not Available Not Available Not Available triamcino lone acetonide 55 mcg nasal spray aerosol INSTILL 2 SPRAYS INTO EACH NOSTRIL DAILY active Not Available Not Available No t Available omeprazol e 20 mg capsule,d elayed release TAKE ONE CAPSULE BY MOUTH TWICE A DAY active Not Available Not Available No t Available zolpidem 5 mg tablet TAKE ONE TABLET BY MOUTH EVERY EVENING AT BEDTIME NEEDED FOR SLEEP active Not Available Not Available No t Available gabapenti n 100 mg capsule 04/14 completed Medicati on ID: [id number] Du ration Value: 30 Brand Name: gabapent in Send Method: E-Prescr ibed Sub s Allowed: subs OK Medic ationGen ericName : gabapent in Not Available Not Available Not Available zolpidem 10 mg tablet 09/27 completed Medicati on ID: [id number] Du ration Value: 90 Reason: () Brand Name: zolpidem Send Method: E-Prescr ibed Sub s Allowed: subs OK Medic ationGen ericName : zolpidem Not Available Not Available Not Available ondansetr on 4 mg disintegr ating tablet 2021 active Medicati on ID: [id number] D uration Value: 3 Prescri bed By Name: Svetlana arnold MD Brand Name: steven romero Send Method: E-Prescr ibed Sub s Allowed: subs OK Speci al Instruct ion: Take 1 tab by mouth every 8 hours as needed for nausea M edvernell Xiongeneric Name: steven romero Not Available Not Available Not Available cefdinir 300 mg capsule TAKE ONE CAPSULE BY MOUTH TWICE A DAY FOR 10 DAYS active Not Available Not Available No t Available Ventolin HFA 90 mcg/actua tion aerosol inhaler INHALE TWO PUFFS BY MOUTH EVERY 6 HOURS NEEDED FOR SHORTNES S OF BREATH OR WHEEZING active Not Available Not Available No t Available oxycodone 5 mg tablet TAKE ONE TABLET BY MOUTH EVERY 8 HOURS NEEDED FOR PAIN active Not Available Not Available No t Available mineral oil topical 4 drops nightly for 7 days, then as needed for itchy ears. 2024 active Not Available Not Available Not Avai lable Calcium-5 00 500 mg (as calcium carbonate 1,250 mg) tablet 2014 active Medicati on ID: [id number] Br and Name: Calcium 500 Send Method: E-Prescr ibed Sub s Allowed: subs OK Medic ationGen ericName : Calcium 500 Not Available Not Available Not Available Restasis 0.05 % eye drops in a dropperet te 09/27 completed Medicati on ID: [id number] Re ason: () Brand Name: Restasis Send Method: E-Prescr ibed Sub s Allowed: subs OK Medic ationGen ericName : Restasis Not Available Not Available Not Available escitalop more 5 mg tablet active Medicati on ID: [id number] B rand Name: escitalo pram oxalate Send Method: E-Prescr ibed Sub s Allowed: subs OK Medic ationGen ericName : escitalo pram oxalate Not Available Not Available Not Available duloxetin e 20 mg capsule,d elayed release TAKE ONE CAPSULE BY MOUTH DAILY FOR ONE WEEK, THEN TAKE ONE CAPSULE BY MOUTH EVERY OTHER DAY FOR 10 DAYS active Not Available Not Available No t Available duloxetin e 30 mg capsule,d elayed release TAKE 1 CAPSULE NIGHTLY FOR ONE WEEK, THEN 2 CAPSULES NIGHTLY active Not Available Not Available No t Available eszopiclo ne 3 mg tablet TAKE ONE TABLET BY MOUTH EVERY DAY AT BEDTIME NEEDED INSOMNIA active Not Available Not Available No t Available eszopiclo ne 1 mg tablet TAKE ONE TABLET BY MOUTH DAILY AT BEDTIME NEEDED FOR INSOMNIA active Not Available Not Available No t Available Gammagard Liquid 10 % injection solution active Not Available Not Available Not Available Lyrica 225 mg capsule twice a day 11/18 completed Medicati on ID: [id number] B rand Name: Lyrica S end Method: E-Prescr ibed Sub s Allowed: subs OK Medic ationGen ericName : Lyrica Not Available Not Available Not Available Symbicort 80 mcg-4.5 mcg/actua tion HFA aerosol inhaler 09/27 completed Medicati on ID: [id number] Re ason: () Brand Name: Symbicor t Send Method: E-Prescr ibed Sub s Allowed: subs OK Medic ationGen ericName : Symbicor t Not Available Not Available Not Available levocetir izine 5 mg tablet TAKE ONE TABLET BY MOUTH EVERY DAY NEEDED active Not Available Not Available No t Available Savella 25 mg tablet 08/21 completed Medicati on ID: [id number] D uration Value: 30 Brand Name: Savella Send Method: E-Prescr ibed Sub s Allowed: subs OK Speci al Instruct ion: TAKE ONE TABLET BY MOUTH TWICE A DAY Medi cationGe nericNam e: Savella Not Available Not Available Not Available Daliresp 500 mcg tablet 08/21 completed Medicati on ID: [id number] D uration Value: 30 Brand Name: Daliresp Send Method: E-Prescr ibed Sub s Allowed: subs OK Speci al Instruct ion: TAKE ONE TABLET BY MOUTH EVERY DAY Medi cationGe nericNam e: Daliresp Not Available Not Available Not Available HyQvia 10 gram/100 mL (10 %) subcutane ous solution 06/02 completed Not Available Not Available Not Available HyQvia 30 gram/300 mL (10 %) subcutane ous solution 03/09 completed Medicati on ID: [id number] B rand Name: HyQvia S end Method: E-Prescr ibed Sub s Allowed: subs OK Medic ationGen ericName : HyQvia Not Available Not Available Not Available HyQvia 20 gram/200 mL (10 %) subcutane ous solution 03/09 completed Medicati on ID: [id number] B rand Name: HyQvia S end Method: E-Prescr ibed Sub s Allowed: subs OK Medic ationGen ericName : HyQvia Not Available Not Available Not Available naloxone 4 mg/actuat ion nasal spray INHALE ONE SPRAY IN ONE NOSTRIL EVERY 2 MINUTES NEEDED FOR OPIOID OVERDOSE . ALTERNAT E NOSTRILS UNTIL HELP ARRIVES active Not Available Not Available No t Available Trelegy Ellipta 100 mcg-62.5 mcg-25 mcg powder for inhalatio n INHALE ONE PUFF BY MOUTH EVERY DAY active Not Available Not Available No t Available Trelegy Ellipta 200 mcg-62.5 mcg-25 mcg powder for inhalatio n 2021 active Medicati on ID: [id number] B rand Name: Trelegy Ellipta Send Method: E-Prescr ibed Sub s Allowed: subs OK Medic ationGen ericName : Trelegy Ellipta Not Available Not Available Not Available Wegovy 1 mg/0.5 mL subcutane ous pen injector INJECT CONTENTS OF 1 PEN UNDER THE SKIN ONCE WEEKLY active Not Available Not Available No t Available Wegovy 0.25 mg/0.5 mL subcutane ous pen injector INJECT 0.25 MG INTO THE SKIN ONCE A WEEK active Not Available Not Available No t Available Wegovy 0.5 mg/0.5 mL subcutane ous pen injector INJECT 0.5MG UNDER THE SKIN ONCE WEEKLY active Not Available Not Available No t Available magnesium 100 mg (as glycinate ) capsule 2022 active Medicati on ID: [id number] B rand Name: golden chopra glycinat e Send Method: E-Prescr ibed Sub s Allowed: subs OK Speci al Instruct ion: take 3 capsules once a day Medi cationGe nericNam e: golden chopra glycinat e Not Available Not Available Not Available Miebo (PF) 100 % eye drops INSTILL 1 DROP INTO EACH EYE 4 TIMES DAILY . MUST SEE PACKAGE INSERT FOR ADMIN INSTRUCT IONS active Not Available Not Available No t Available Vitals Date Recorded Body height Body mass index (BMI) Body weight Provider Name and Address Organization Details Last Updated DateTime 06/05/2024 160.02 cm 24.3 kg/m2 39648.15 g Rachel Buttsyolette [place] - [facility] 06/05/2024 11:17:54 Social History None recorded. Functional Status None recorded. Mental Status None recorded. Family History Nothing Reported. Medical History Condition Response Hearing Loss Y Gynecological HistoryNo gynecological history recorded. Obstetrics History GPAL:G 0 P 0 0 0 0 Past Encounters Encounter ID Performer Location Encounter Start Date Encounter Closed Date Diagnosis/Indication Diagnosis SNOMED-CT Code Diagnosis ICD10 Code Diagnosis Note [id number] RADHA HERNÁNDEZ MD [facility] [address] [address] 06/05/2024 10:25:57 06/05/2024 11:45:41 Sensorineural hearing loss of bilateral ears [id number] H90.3 Audiologic al evaluation results: Right ear: {{Normal N ormal through 2 kHz Mild M oderate* M oderately- severe Sev ere Profou nd}} {{hearing hearing. s loping to a mild slopi ng to a moderate s loping to moderately severe slo ping to severe* sl oping to profound f lat high frequency low frequency mid frequency cookie bite donahue curve}} {{with sen sorineural hearing loss with* cond uctive hearing loss with mixed hearing loss with}} {{excellen t good annemarie r* poor no measurable }} word recognitio n. Left ear: {{Normal N ormal through 2 kHz Mild M oderate Mo derately-s evere Cynthia re Profoun d Moderate low frequency SNHL#}} {{hearing hearing. s loping to a mild slopi ng to a moderate s loping to moderately severe slo ping to severe slo ping to profound f lat high frequency low frequency mid frequency cookie bite donahue curve risi ng to normal, sloping to severe #}} {{with sen sorineural hearing loss with* cond uctive hearing loss with mixed hearing loss with}} {{excellen t* good fa ir poor no measurable }} word recognitio n. Tympanomet ry: Right Ear:{{Type A* Type As Type Ad Type C Type C, shallow & rounded Ty pe B Type B with large volume Cou ld not maintain a hermetic seal}} Left Ear:{{Type A* Type As Type Ad Type C Type C, shallow & rounded Ty pe B Type B with large volume Cou ld not maintain a hermetic seal}} Itching of ear 727113416 L29.89 Bilateral hyperacusis of ears 4402994105 846281 H93.233 M? ? ?ni? ? ?re's disease 89920006 H81.01 Bilateral tinnitus 67990 84420 102 H93.13 Health Concerns Section Related Observation LastModified by Organization Detai ls LastModified Time None Recorded Concern Status LastModified by Organization Details LastModified Time None Recorded Advance Directives Directive None Recorded Payers Encounter Date Sequence Insurance Name Policy Number Policy Ibanez Covered Member ID Ibanez Member ID Guarantor Name 06/05/2024 1 [employer] - PICAYUNE ZERO (HMO) [id number] Ann Knox [id number] 1 Ann Knox Notes Date Note Type Note Provider Name and Address Organization Details Recorded Time 06/05/2024 text/html 63yo female with bilateral SNHL and history of Meniere's presents for worsening right-sided hearing loss. She reports hyperacusis and intermittent hearing bilaterally. She is struggling to hear the tv and people around her despite hearing aids. Aids were dispensed by [facility] 2-3 years ago. She is scheduled to follow-up for hearing aid adjustment. Denies otalgia or otorrhea. RADHA HERNÁNDEZ MD [address] [place] [address], [phone], [facility] - [facility] 06/06/2024 08:37:01 OBGyn Episode No OBEpisode recorded.
--- OUTSIDE RECORDS SUMMARY | 2024-08-16 11:21 | XMS_ITS | Continuity of Care Document ---
Author Organization [facility] Address [address] [place] [address] Phone Care Team Providers Care Inlayer Silver Name Role Phone Ryan JOHANSEN, RVMaddie, GLORIA, Louis Unavailable U navailable Allergies, Adverse Reactions, Alerts Substance Reaction Status Criticality prednisone Active No Information azithromycin Active No Information amoxicillin Active No Information THEOPHYLLINE ANHYDROUS Active No In formation clindamycin Active No Information aminophylline Active No Information ampicillin Active No Information adhesive Active No Information Medications Medication Instructions Dosage Effective Dates (start - stop) Status Comments meclizine 12.5 mg tablet - A ctive Alrex 0.2 % eye drops,suspension - Active baclofen 10 mg tablet - Acti ve clonazepam 0.5 mg tablet - A ctive levothyroxine 13 mcg capsule - Active magnesium 400 mg (as magnesium oxide) capsule - Active mometasone 0.1 % topical ointment - Active omeprazole 20 mg tablet,delayed release - Active ondansetron 4 mg disintegrating tablet - Active Proventil HFA 90 mcg/actuation aerosol inhaler - Active Qvar RediHaler 80 mcg/actuation HFA breath activated aerosol - Active Stiolto Respimat 2.5 mcg-2.5 mcg/actuation solution for inhalation - Active triamterene 37.5 mg-hydrochlorothiazide 25 mg capsule - Active Procedures Procedure Date Office/Outpt E&M Established 15 Mins- CT & [place] Duplex Scan-extrem Veins; Comp- CT & [place] Duplex Scan-extrem Veins; Uni/ CT & [place] M Inj Scleros Solut; Mx Veins 1- CT & [place] M Ultrason Guidan Needle Bx-rad- CT & [place] M Duplex Scan-extrem Veins; Uni/ CT & [place] M Endovenous Laser, 1st Vein- CT & [place] Duplex Scan-extrem Veins; Uni/ CT & [place] M Endovenous Laser, 1st Vein- CT & [place] Office/Outpt E&M Established 15 Mins- CT & [place] Office/Outpt E&M Established 15 Mins Apr Duplex Scan-extrem Veins; Comp Duplex Scan-extrem Veins; Uni/ 23 Phleb Veins - Extrem - To Endovenous Laser, 1st Vein Duplex Scan-extrem Veins; Uni/ 23 Phleb Veins - Extrem - To Inj Scleros Solut; Mx Veins 1 3 Varithena, Single Truncal Vein Office/Outpt E&M Established 10 Mins - T elemedicine Duplex Scan-extrem Veins; Comp Office/Oupt E&M New Pt 45 Mins Advance Directives Directive Yes / No Effective Date File Name No Information Encounters Encounter Description Practice Location Reason(s) For Visit Diagnoses Date Provider Providers Copied on Encounter Office/Outpt E&M Established 15 Mins- [place] & [place] [facility], [address], [place], [id number], [place] tel:[phone] [place] Localized edemaCramp and spasmRestless legs syndromeVenou s insufficiency (chronic) (peripheral)P ruritus, unspecified 4 Ryan JOHANSEN RVT, GLORIA Myers. [address] [place] [address], Marisa caldera [place], [id number], [place]. tel:[phone] Referring Provider: Alicja Lemus, [address] [place] [address], [facility]. tel:[phone] [facility], [address] [place] [address] [address] [place], [id number], [place] tel:[phone] [place] Varicose veins of bilateral lower extremities with pain 4 Ryan JOHANSEN RVT, GLORIA Myers. [address] [place] [address], Marisa caldera [place], [id number], [place]. tel:[phone] Referring Provider: Alicja Lemus, [address] [place] [address], [facility]. tel:[phone] [facility], [address] [place] [address] Dr [address] [place], [id number], [place] tel:[phone] [place] Encounter for follow-up examination after completed treatment for conditions other than malignant neVaricose veins of right lower extremity with pain 4 Ryan JOHANSEN RVT, RPVI Robert. [address] [place] [address], Marisa calder[place], [id number], [place]. tel:[phone] Referring Provider: Alicja Lemus, [address] [place] [address], [facility]. tel:[phone] [facility], [address] [place] [address] [address], [id number], [place] tel:[phone] [place] Varicose veins of right lower extremity with other complications 4 Ryan JOHANSEN RVT, RPVI Robert. [address] [place] [address], Marisa calder[place], [id number], [place]. tel:[phone] Referring Provider: Alicja Lemus [address] [place] [address], [address]. tel:[phone] [facility], [address] [place] [address] Dr [address] [place], [id number], [place] tel:[phone] CV[place] Encounter for follow-up examination after completed treatment for conditions other than malignant nePain in right leg 4 Ryan JOHANSEN RVT, GLORIA Myers. [address] [place] [address], [place], [id number], [place]. tel:[phone] Referring Provider: Alicja Lemus, [address] [place] [address], [facility]. tel:[phone] [facility], [address] [place] [address] [address] [place], [id number], [place] tel:[phone] CVR - [facility] Varicose veins of right lower extremity with other complications 4 Ryan JOHANSEN RVT, GLORIA Myers. [address] [place] [address], Marisa [place], [id number], [place]. tel:[phone] Referring Provider: Alicja Lemus, [address] [place] [address], [address]. tel:[phone] [facility], [address] [place] [address] [address] [place], [id number], [place] tel:[phone] CVR - [place] [facility] Encounter for follow-up examination after completed treatment for conditions other than malignant ne 4 Ryan JOHANSEN RVT, GLORIA Myers. [address] [place] [address], Marisa [place]der[place], [id number], [place]. tel:[phone] Referring Provider: Alicja Lemus, [address] [place] [address], [address]. tel:[phone] [facility], [address] [place] [address] [address] [place], [id number], [place] tel:[phone] [place] Varicose veins of left lower extremity with other complications 4 Ryan JOHANSEN RVT, RPVI Robert. [address] [place] [address], [facility] [place], [id number], [place]. tel:[phone] Referring Provider: Alicja Lemus, [address] [place] [address], [facility]. tel:[phone] Office/Outpt E&M Established 15 Mins- CT & [place] [facility], [address] [place] [address] Dr [address], [id number], [place] tel:[phone] [place] Restless legs syndromeVenou s insufficiency (chronic) (peripheral)P ruritus, unspecifiedLo calized edemaCramp and spasm 4 Ryan JOHANSEN RVT, RPVI Robert. [address] [place] [address], [facility] [place], [id number], [place]. tel:[phone] Referring Provider: Alicja Lemus, [address] [place] [address], [facility]. tel:[phone] Office/Outpt E&M Established 15 Mins [facility], [address] [place] [address] Dr [address] [place], [id number], [place] tel:[phone] [place] Venous insufficiency (chronic) (peripheral) 4 Ryan JOHANSEN RVT, RPVI Robert. [address] [place] [address], [facility] [place], [id number], [place]. tel:[phone] Referring Provider: Alicja Lemus, [address] [place] [address], [facility]. tel:[phone] [facility], [address] [place] [address] Dr [address] [place], [id number], [place] tel:[phone] CVR - [facility] Chronic venous hypertension (idiopathic) with other complications of bilateral lower extremity 4 Ryan JOHANSEN RVT, RPVI Robert. [address] [place] [address], Marisa calder[place], [id number], [place]. tel:[phone] Referring Provider: Alicja Lemus, [address] [place] [address], [address]. tel:[phone] [facility] [place], [address] [place] [address] Dr [address], [id number], [place] tel:[phone] [place] Encounter for follow-up examination after completed treatment for conditions other than malignant neVaricose veins of left lower extremity with pain Dec-2 3 Ryan JOHANSEN, RVT, GLORIA Myers. [address] [place] [address], Marisa calder[place], [id number], [place]. tel:[phone] Referring Provider: Alicja Lemus, [address] [place] [address], [facility]. tel:[phone] [facility], [address] [place] [address] [address], [id number], [place] tel:[phone] CVR - [facility] Varicose veins of left lower extremity with other complications Dec-2 3 August Das. [address] [place] [address], Marisa [place], [id number], [place]. tel:[phone] Referring Provider: Alicja Lemus, [address] [place] [address], [address]. tel:[phone] [facility], [address] [place] [address] [address], [id number], [place] tel:[phone] CVR - [facility] Varicose veins of left lower extremity with other complications Dec-2 0 3 Joby JOHANSEN FACS RVT GLORIA Felder. [address] [place] [address], [place], [id number], [place]. tel:[phone] Referring Provider: Alicja Lemus, [address] [place] [address], [address]. tel:[phone] [facility], [address] [place] [address] [address], [id number], [place] tel:[phone] [place] Encounter for follow-up examination after completed treatment for conditions other than malignant neChronic venous hypertension (idiopathic) with other complications of right lower extremity Dec-0 3 Joby Felder. [address] [place] [address], [place], [address], [place]. tel:[phone] Referring Provider: Alicja Lemus, [address] [place] [address], [address]. tel:[phone] [facility], [address] [place] [address] Dr [address], [id number], [place] tel:[phone] [place] Varicose veins of right lower extremity with other complications 3 August Das. [address] [place] [address], [place], [place], [id number], [place]. tel:[phone] Referring Provider: Alicja Lemus, [address] [place] [address], [address]. tel:[phone] [facility], [address] [place] [address] [address], [id number], [place] tel:[phone] [place] Varicose veins of right lower extremity with other complications 3 Joby Felder. [address] [place] [address], [place], [address], [place]. tel:[phone] Referring Provider: Alicja Lemus, [address] [place] [address], [address]. tel:[phone] Office/Outpt E&M Established 10 Mins - [facility], [address] [place] [address] [address], [id number], [place] tel:[phone] [place] Varicose veins of bilateral lower extremities with other complications Jan- 3 Joby Felder. [address] [place] [address], [place], [address], [place]. tel:[phone] Referring Provider: Alicja Lemus, [address] [place] [address], [address]. tel:[phone] [facility], [address] [place] [address] [facility] [address], [place], [id number], tel:[phone] CVR - [facility] Chronic venous htn w oth comp of bilateral low extrm 3 Joby JOHANSEN FACS T GLORIA Felder. [address] [place] [address], [place], [address], [place]. tel:[phone] Referring Provider: Alicja Lemus, [address] [place] [address], [facility]. tel:[phone] Office/Oupt E&M New Pt 45 Mins [facility], [address] [place] [address] [facility] [address], [place], [id number], [place] tel:[phone] CVR - [facility] Varicose veins of bi low extrem w oth complications Pain in right lower legPain in left lower legPruritus, unspecifiedFl ail joint, unspecified jointPain in right legPain in left leg 3 Joby JOHANSEN FACS T GLORIA Felder. [address] [place] [address], [place], [address], [place]. tel:[phone] Referring Provider: Alicja Lemus, [address] [place] [address], [facility]. tel:[phone] Family History Family Member Type Diagnosis Age At Onset No Information Payers Payer name Insurance type Covered democrat ID Leesa valadez(s) [facility] CI [id number] Social History Type Description Quantity Date Captured Comments Alcohol Use Details Unknown Caffeine Use Details Unknown Tobacco Use Status Current non-smoker Smoking Status Never Smoker Non-Smoking Tobacco Use Details : No Details Available : No Details Available Sex Female Vital Signs Date / Time: Height Weight BMI Pulse Rate Blood Pressure Temperature Respiratory Rate Body Surface Area Head Circumference Head Circ. Percentile Wt./Deven. Percentile BMI percentile Pulse Ox Inhaled Ox 67.590 kg (149.00 lbs) 26.4 4 kg/m eter (2) 120/70 mm[Hg] Chief Complaint And Reason For Visit No Information Reason For Referral Reason For Referral No Information Plan Of Treatment Date Type Action Status Goal Diet education completed Goal Diet education completed Goal Diet education completed Goal Tobacco cessation counseling completed Goal Diet education completed Referral Ordered: Weight management: Referral to physician timeframe: 3 Months (related to Body mass index (BMI) 26.0-26.9, adult) ordered Referral Ordered: Weight management: Referral to physician timeframe: 3 Months (related to Body mass index (BMI) 26.0-26.9, adult) ordered Referral Ordered: Weight management: Referral to physician timeframe: 3 Months (related to Body mass index (BMI) 26.0-26.9, adult) ordered Referral Ordered: Weight management: Referral to physician timeframe: 3 Months (related to Body mass index (BMI) 26.0-26.9, adult) ordered History Of Present Illness Encounter Date Complaint History Of Prese nt Illness No Information Functional Status Date Functional Assessmen t No Information Instructions Date Instruction Additional Infor yaw Diet education Related to Body mass index (BMI) 26.0-26.9, adult Compression stocking usage as conservative measure Related to Localized edema Patient education booklet given Related to Localized edema Giving Encouragement to exercise Related to Body mass index (BMI) 26.0-26.9, adult Lifestyle education Related to B nick mass index (BMI) 26.0-26.9, adult Diet education Related to Body mass index (BMI) 26.0-26.9, adult Giving Encouragement to exercise Related to Body mass index (BMI) 26.0-26.9, adult Lifestyle education Related to B nick mass index (BMI) 26.0-26.9, adult Compression stocking usage as conservative measure Related to Localized edema Patient education booklet given Related to Localized edema Diet education Related to Body mass index (BMI) 26.0-26.9, adult Giving Encouragement to exercise Related to Body mass index (BMI) 26.0-26.9, adult Lifestyle education Related to B nick mass index (BMI) 26.0-26.9, adult Patient education booklet given Related to Venous insufficiency (chronic) (peripheral) Diet education Related to Body mass index (BMI) 26.0-26.9, adult Giving Encouragement to exercise Related to Body mass index (BMI) 26.0-26.9, adult Lifestyle education Related to B nick mass index (BMI) 26.0-26.9, adult Patient education booklet given Related to Varicose veins of bi low extrem w oth complications Pre and post instruc tions reviewed and provided Related to Varicose veins of bi low extrem w oth complications Assessments Type Assessment Date No Information Patient Care Teams Name Effective Dates (start - stop) Status Members No Information
== END 2024-08-16 10:21 | disposition home or self-care (01) ==
LOC: HO.HPS 09:54
PROVIDERS: PCP Physician Assistant; Visit Provider Hospitalist
DX: J96.11 Chronic respiratory failure with hypoxia (principal); J96.12 Chronic respiratory failure with hypercapnia; J44.1 Chronic obstructive pulmonary disease with (acute) exacerbation; D80.1 Nonfamilial hypogammaglobulinemia
CPT/HCPCS: 99214

== ENCOUNTER 2025-03-12 10:52 | Outpatient (AMB) | payer OTHER, SELFPAY ==
[2025-03-12 10:55] VITALS: BP 100/60; PULSE 80; O2SAT 100
--- NOTE | 2025-03-12 10:55 | MHC.OFFVIS ---
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 Accompanied by: Self / Same As Patient Allergies ampicillin Allergy (Severe, Verified 03/12/25 10:57) Rash and Hives azithromycin Allergy (Severe, Verified 03/12/25 10:57) Rash/Hives methylprednisolone Allergy (Severe, Verified 03/12/25 10:57) Rash and Hives potassium Allergy (Severe, Verified 03/12/25 10:57) Rash and Hives theophylline Allergy (Severe, Verified 03/12/25 10:57) Rash and Hives aminophylline Allergy (Intermediate, Verified 03/12/25 10:57) Rash and Hives amoxicillin (From Augmentin) Allergy (Intermediate, Verified 03/12/25 10:57) Rash clavulanic acid (From Augmentin) Allergy (Intermediate, Verified 03/12/25 10:57) Rash clindamycin Allergy (Intermediate, Verified 03/12/25 10:57) Rash adhesive Allergy (Unknown, Verified 03/12/25 10:57) Rash Polyethylene Glycol Allergy (Severe, Uncoded 04/12/24 11:23) Rash and Hives Tape Allergy (Severe, Uncoded 04/12/24 11:23) Rash and Hives HPI Comments Details: The patient is a 64-year-old woman with a known history of severe COPD in addition to obstructive sleep apnea. The patient continues to using BiPAP at night the BiPAP therapy continues to be affecting beneficial. She has the BiPAP every night for more than 4 hours a night. She has been getting supplies through [employer]. I will request a download to see how effective it is for her. She continues to use her respiratory therapy. She has not required any prednisone. She continues to have significant shortness of breath, moderate severity. She does have oxygen at home that she uses. She is also using her BiPAP pressures 13/03. The therapy seems to be affecting beneficial. We did download the machine her AHI is down to 3.4. Her average use is more than 6 hours. The therapy appears to be very effective beneficial. She does use a nasal mask although sometimes she does have air leakage issues. She should consider using a fullface mask. Will try [id number] mask at this time. On examination she does have significant wheezing or rhonchi likely from bronchitis and COPD exacerbation. At this time we need to treat this before gets any worse. 12/29/2022 the patient is here for pulmonary follow-up visit. She continues to have daytime drowsiness. Her Flushing score is elevated 10/24. She does use the BiPAP every night. She also has a history of COPD and chronic hypercarbic respiratory failure. She had been on noninvasive ventilator in the past but then insurance issues resulted in the discontinuation of the noninvasive ventilator and she was placed back on BiPAP. seems like the BiPAP therapy has not been effective in helping her with her ongoing daytime drowsiness. Therefore the patient did undergo a repeat sleep study. Initially was requested as a split study. But, since the patient already had a positive sleep study in 2013 demonstrating moderate sleep apnea the patient had a titration study at this time. The patient did have an elevated end-tidal CO2 of 57 mm Hg. The patient was titrated and based on the titration measurements the recommendation was switch the patient over to an auto BiPAP. the patient currently owns a regular BiPAP that she is had for about a years. At this point the therapy is not effective for her and we will request a auto BiPAP for replacement machine. The patient also was diagnosed with osteopenia and osteoporosis. She is concerned about the inhaled steroids. Currently she is on Bevespi and QVAR. Then after that she will start Trelegy 200 that she has at home. When she completes that then will be reasonable to switch her to the Trelegy 100 to try to minimize inhaled steroids. 03/31/2023 the patient is here for a pulmonary follow-up visit. She did get a new BiPAP. The auto BiPAP does not appear to be working well for her. She still having hard time with breathing. Has a hard time tolerating the pressures. She I did adjust her pressure setting some increasing the pressures overall. In the meantime will also requested a blood gas demonstrating an elevated CO2 of 57 mmHg consistent with chronic hypercarbic respiratory failure. Therefore, seems that she is failing BiPAP does not tolerate the pressures and is not improving her CO2. The patient does have significant COPD and resulting in the chronic hypercarbic respiratory failure. Therefore going back to noninvasive ventilator will improve her gas exchange, improved prognosis and decrease risk some hospitalizations. The patient had been on a noninvasive ventilator previous to the BiPAP and he was she was actually doing a lot better at that time. Therefore we will request her start a trilogy noninvasive ventilator from her [employer], [employer]. 07/13/2023 the patient is here for a pulmonary follow-up visit. The patient has been doing fairly okay. She did which over to an astral noninvasive ventilator in view of her hypercarbia. Although she is having hard time adjusting. She feels that she has getting a lot of gas pain. I did decrease the tidal volume to around 440 and also decrease her respiratory rate down from 15 to 13. I am hoping that this is enough. Otherwise will continue to adjust the machine accordingly. Will also have her repeat the blood gas on before the next visit in 3-4 months. The patient has been using her Trelegy inhaler with good effect. She continues use her respiratory therapy as well. She continues to have shortness breath with activity which explained to her is typical of her underlying obstructive airway disease. She is having hard time sleeping. Will go ahead and start her on small dose of Ambien in order for her to sleep better and tolerate her noninvasive ventilator. 10/19/2023 the patient is here for pulmonary follow-up visit. She is doing okay. She has tolerating the astral. The settings well tolerated. Her AHI is below 5. Will go ahead and check her blood gas some point. In the meantime she did have pulmonary function studies. I did personally review them with the patient. Seems like she has some moderate to severe COPD. Seems to be worsening from prior. We did do alpha-1 testing today specially with the family history. She continues on her respiratory therapy she is wondering if there is anything else other that she can take for her breathing. At this point is unlikely that any further therapies going to be effective specially since his mainly related to the heat and humidity the sometimes cause the COPD symptoms to worsen. I do believe that she needs pulmonary rehabilitation. She will look into online rehabilitation at this time. She will continue to use the noninvasive ventilator as it has been affecting beneficial. And she has tolerating the mask well. 04/12/2024 the patient is here for a pulmonary follow-up visit. Overall she is doing well. Sometimes she is having hard time with her noninvasive ventilator. She is still struggling with a little bit. Sometimes she wakes up at 1 or 02:00 o'clock in the morning and can not go back to sleep. She does try sleep aids but it did not help keep her sleep. I do believe trazodone may be effective for her. She can try half to full tablet 1 hour before sleep. In addition to that if he continues to have difficulties we can try to have respiratory from her [employer] going adjusted ventilator. Will go ahead request blood work including a blood gas to make sure that her CO2 is improving on the noninvasive ventilator. The patient is also complaining of back pain along with some shortness of breath. She has significant sacroiliac disease. Indeed she may have more musculoskeletal issues although working always do an x-ray whenever she has the opportunity to do so to make sure that she is not developing any pulmonary or lung manifestations. Currently her respiratory exam is reassuring. I do believe the Trelegy is enough at this time. I do not believe that additional therapies are warranted. 08/16/2024 the patient is here for a pulmonary follow-up visit. Overall the patient is doing well from a respiratory status. She did have a sleep study back in May and demonstrated that she no longer has sleep apnea or any evidence of any significant hypercarbia. Therefore she stopped using the noninvasive ventilator. She has been sleeping without doing fine. The patient also has continue to use her respiratory inhalers. Although she has not been a sickly. She had significant amount of weight loss and this overall helped her sleep issues and also helped her respiratory symptoms. She does have significant back issues and has chronic pain issues. She is working closely with her doctors to help her relieve some of his discomfort. This right now is the biggest limiting step for her. In the meantime we did look at her previous blood work. Back in March her pCO2 was 50. Will plan to repeat her blood work to make sure that she is not retaining more CO2 specially that she is off the noninvasive ventilator at this time. Will follow-up in 6-8 months if she has any issues prior to that she will call for an earlier assessment. 03/12/2025 the patient is here for pulmonary follow-up visit. The patient has multiple complaints. Has been having some left-sided back and chest discomfort. Right behind the scapula. Does worsen when she breathes in. She did see a massage therapist and if did not feel like it was muscular. She has had imaging studies x-ray without any significant disease. She had a CAT scan back in 2021 of the chest. Again, her recent x-ray from here was not helpful. She has also had significant amount of weight loss. Will try to get a CAT scan to better address any potential explanation for her weight loss and also this back pain chest pain. Her respiratory exam is reassuring. She continues use the Trelegy with good effect. The patient has been sleeping without the CPAP and has been doing well. Therefore she will continue with the current therapy will follow-up with her CAT scan and will follow-up in 3 months. [facility] Medical History (Updated 03/12/25 @ 20:27 by Benoit Vazquez MD) Weight loss Asthma-COPD overlap syndrome Fibromyalgia Hypothyroidism Glaucoma Obstructive sleep apnea Menieres disease Blood D-dimer assay positive Sore throat Vocal cord dysfunction Hypogammaglobulinemia Chronic respiratory failure COPD (chronic obstructive pulmonary disease) Dyspnea Surgical History Hx of shoulder surgery History of hip surgery S/P iridectomy H/O hemorrhoidectomy H/O abdominoplasty H/O inguinal hernia repair H/O gastric bypass History of colon resection Hx of section Family History Father COPD (chronic obstructive pulmonary disease) Mother Type 2 diabetes mellitus Hypertension Renal insufficiency Family/Other Colon cancer AIDS Schizophrenia Social History Alcohol intake: current Alcohol intake frequency: does not drink Patient Tobacco Use Status: Never used Tobacco Current occupational status: disabled Review of Systems Const Denies chills, Denies fatigue, Denies fever(s) and Reports weight loss ENT Denies dizziness and Reports neck pain Card Reports chest pain, Denies leg edema, Denies lightheadedness, Denies palpitations, Denies dyspnea on exertion, Denies orthopnea and Denies other Resp Denies cough and Denies dyspnea on exertion GI Denies hematochezia and Denies change in stool character Musc Denies abnormal gait, Reports back pain, Reports myalgias, Reports limited range of motion, Denies muscle weakness, Reports neck pain, Denies numbness, Denies radiating pain into limb and Denies tingling Skin/Breast Denies rash Neuro Denies Abnormal speech present, Denies abnormal gait, Denies dizziness, Denies numbness and Denies tingling Endo Denies fatigue and Denies palpitations Physical Exam Vital Signs: Last Vital Signs Pulse 80 03/12/25 10:55 BP 100/60 03/12/25 10:55 Pulse Ox 100 03/12/25 10:55 Oxygen Delivery Method Room Air 03/12/25 10:55 Const General: alert Neck Neck: Yes normal visual inspection, Yes full ROM and Yes no lymphadenopathy Chest Chest palpation & inspection: normal inspection of the chest Resp Auscultation: diminished lung sounds Cardio Rate: regular rate Rhythm: regular rhythm Heart sounds: S1 normal heart sound present and S2 normal heart sound present GI Palpation (GI): Soft to palpation and nontender Auscultation: normal bowel sounds Skin Lesions: lesion noted (from cupping) Neuro Speech: No Abnormal speech present Assessment & Plan Assessment & Plan (1) Chronic respiratory failure: Code(s): J96.10 - Chronic respiratory failure, unspecified whether with hypoxia or hypercapnia Category: Medical Qualifiers: Respiratory failure complication: hypoxia and hypercapnia Qualified Code(s): J96.11 - Chronic respiratory failure with hypoxia; J96.12 - Chronic respiratory failure with hypercapnia (2) COPD (chronic obstructive pulmonary disease): Code(s): J44.9 - Chronic obstructive pulmonary disease, unspecified Category: Medical Qualifiers: COPD type: COPD with acute exacerbation Qualified Code(s): J44.1 - Chronic obstructive pulmonary disease with (acute) exacerbation (3) Hypogammaglobulinemia: Code(s): D80.1 - Nonfamilial hypogammaglobulinemia Category: Medical (4) Dyspnea: Code(s): R06.00 - Dyspnea, unspecified Category: Medical Qualifiers: Dyspnea type: dyspnea on exertion Qualified Code(s): R06.00 - Dyspnea, unspecified (5) Asthma-COPD overlap syndrome: Code(s): J44.89 - Other specified chronic obstructive pulmonary disease Category: Medical Plan continue Trelegy OG as needed duonebs continue IgG augmentation therapy through Immunology repeat VBG and bloodwork CXR non diagnostic, CT chest F/U 4-6 months Orders: Orders CT chest wo IV con Today R07.9 - Chest pain, unspecified, R63.4 - Abnormal weight loss Coding Level of Care Code Est Pt Level 4 (42957) Complex EM visit Add On G2211 Diagnoses Chronic respiratory failure with hypoxia and hypercapnia J96.11; J96.12 Respiratory failure complication: hypoxia and hypercapnia Chronic obstructive pulmonary disease with acute exacerbation J44.1 COPD type: COPD with acute exacerbation Hypogammaglobulinemia D80.1 Dyspnea on exertion R06.00 Dyspnea type: dyspnea on exertion Asthma-COPD overlap syndrome J44.89 Time Spent (min) 17
--- OUTSIDE RECORDS SUMMARY | 2025-03-12 22:30 | XMS_ITS | Data Portability ---
Author Organization [place] - [facility], Allergy Address [address] [place] [id number] Care Team Providers Care Non Morse Intercept Technician Name Role Phone LUIS ALBERTO CORCORAN Primary [...] is scheduled for hearing aid adjustment at [facility]. Reviewed tinnitus triggers and masking strategies. Recommend mineral oil as needed for ear pruritus. [email or web address] Not available 06/05/2024 12:27:59 Plan of Treatment Reminders Order Date Submit Date Provider Last Modified By Organization Details Last Modified Time Details Appointments None recorded. Lab None recorded. Referral None recorded. Procedures None recorded. Surgeries None recorded. Imaging None recorded. Medication Orders mineral oil topical 025 025 [employer] [id number], [address] [facility], [place], [address], 11:45:38 Patient TargetsNo targets recorded. Patient InstructionsNo [...] Name and Address Organization Details Recorded Time Sensorin eural hearing loss 59233863 Active 2014 Sensorin eural hearing loss, unilater al, right ear, with unrestri cted hearing on the contrala teral side; Note: Date Diagnose d: 02/19/20 15 2:12 PM (H90.41) Not Available [facility] 4 03:03:09 Atypical facial pain 99776439 Active 2014 Facial pain, atypical ; Note: Date Diagnose d: 5 12:14 PM (350.2) ; Start Date : 10/19/19 Atypi zandra facial pain; Note: Date Diagnose d: 02/19/20 15 9:20 PM (G50.1) Not Available [facility] 4 03:03:09 Tinnitus of right ear 35889503856 08 Active 2014 Tinnitus , right ear; Note: Date Diagnose d: 02/19/20 15 2:12 PM (H93.11) Not Available [facility] 4 03:03:09 M ni re's disease 59629438 Active 2014 Meniere' s disease, right ear; Note: Date Diagnose d: 02/19/20 15 9:20 PM (H81.01) Not Available [facility] 4 03:03:09 Sensorin eural hearing loss of bilatera l ears 850259634 Active 2018 Sensorin eural hearing loss, bilatera l; Note: Date Diagnose d: 9 5:44 PM (H90.3) Not Available [facility] 4 03:03:07 Benign paroxysm al position al vertigo 259756291 Completed 201811/26/2023 Benign paroxysm al vertigo, unspecif ied ear; Note: Date Diagnose d: 9 10:57 AM (H81.10) Not Available [facility] 4 03:03:06 Dizzines s and giddines s 999090490 Active 2018 [facility]-he adedness ; Note: Date Diagnose d: 9 10:24 AM (R42) Dizzin ess and giddines s; Note: Date Diagnose d: 02/19/20 15 2:12 PM (R42) ; Start Date : 02/19/20 15 Not Available [facility] 4 03:03:08 Acute pharyngi tis 365372278 Active 2018 Sore throat (acute) NOS; Note: Date Diagnose d: 9 10:24 AM (J02.9) Not Available [facility] 4 03:03:07 Myoclonu s 05208868 Active 2018 Myoclonu s; Note: Date Diagnose d: 9 1:20 PM (G25.3) Not Available [facility] 4 03:03:06 Bilatera l hyperacu sis of ears 96958396524 93799 Active 2019 Hyperacu sis, bilatera l; Note: Date Diagnose d: 0 7:28 PM (H93.233 ) Not Available [facility] 4 03:03:08 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 64652927978 108 Active 2021 Arnold-C hiari syndrome without spina bifida or hydrocep halus; Note: Date Diagnose d: 07/29/2021 12:55 PM (Q07.00) Not Available [facility] 4 03:03:08 Headache 01579494 Active 2021 Headache , unspecif ied; Note: Date Diagnose d: 2 9:36 AM (R51.9) Not Available [facility] 4 03:03:06 Itching of skin 044798633 Active 2021 Other pruritus ; Note: Date Diagnose d: 2 12:26 PM (L29.8) Not Available [facility] 4 03:03:08 Dysphoni a 62056027 Active 2023 Hoarsene ss; Note: Date Diagnose d: 06/04/2023 3:21 PM (R49.0) Not Available [facility] 4 03:03:06 Dysphagi a 38504076 Active 2023 Dysphagi a, unspecif ied; Note: Date Diagnose d: 06/04/2023 3:21 PM (R13.10) Not Available [facility] 4 03:03:07 Itching of ear 426878120 Active 2024 PABLO GALLOWAY PA-C [address] [facility],[place] [address], [place], [phone] , [facility] 5 11:43:36 Bilatera l tinnitus 00574654533 02 Active 2024 PABLO GALLOWAY PA-C [address] [facility],[place] [address], [place], [address] , [facility] [place] 12:27:42 Problem Notes None recorded. Procedures Surgical History Date Name Laterality Status Provider Name and Address Organization Details Recorded Time 06/05/2024 Air & Speech Audio with Tymps - 77629, 12367 & 90456 completed LEROY MAJANO [address] [facility],[place] [address], [place], [address], [facility] [place] 06/05/2024 11:12:24 Imaging Results None recorded. Procedure Notes None recorded. Medical Equipment None [...] nebulizat ion 11/18 completed Medicati on ID: [id number] D uration Value: 20 Brand Name: albutero [...] tended release 08/24 completed Medicati on ID: [id number] D uration Value: 30 Brand Name: Concerta Send Method: E-Prescr ibed Sub s Allowed: subs OK Speci al Instruct ion: TAKE ONE TABLET BY MOUTH ONCE DAILY EVERY MORNING Medicati onGeneri cName: Concerta Not Available Not Available Not Available clotrimaz ole-betam ethasone 1 %-0.05 % lotion a small amount 2020 active Medicati on ID: [id number] D uration Value: 14 Prescri bed By Name: CASSI Mcgill nd Name: clotrima zole-bet amethaso ne Send Method: E-Prescr ibed Sub s Allowed: subs OK Speci al Instruct ion: Apply with finger to ear canal skin. Me dication GenericN tai: clotrima zole-bet amethaso ne Not Available Not Available Not Available meloxicam 15 mg tablet 09/27 completed Medicati on ID: [id number] Re ason: () Brand Name: meloxica m Send Method: E-Prescr ibed Sub s Allowed: subs OK Medic ationGen ericName : meloxica m Not Available Not Available Not Available prednison e 20 mg tablet TAKE ONE TABLET BY MOUTH TWICE A DAY FOR 5 DAYS active Not Available Not Available No t Available gabapenti n 400 mg capsule 06/02 completed Medicati on ID: [id number] B rand Name: gabapent in Send Method: [...] once a day active Medicati on ID: [id number] P rescribe d By Name: Sony De La Cruz nd Name: mihir chopra chloride Send Method: E-Prescr ibed Sub s Allowed: subs OK Medic ationGen ericName : maurau m chloride Medicat ion ID: [id number] P rescribe d By Name: Sony De La Cruz nd Name: mihir chopra chloride Send Method: E-Prescr ibed Sub s Allowed: subs OK Medic ationGen ericName : maurau m chloride Not Available Not Available Not [...] 4 drop 2018 active Medicati on ID: 239277 D uration Value: 14 Prescri bed By [...] mg tablet 2021 active Medicati on ID: [id number] D uration Value: 7 Brand Name: meclizin [...] at bedtime 02/27 completed Medicati on ID: [id number] P rescribe d By Name: Radha Myers M.D. Bra nd Name: nortript yline Se nd Method: E-Prescr ibed Sub s Allowed: subs OK Medic ationGen ericName : nortript yline Not Available Not Available Not Available Alrex 0.2 % eye drops,omer pension 03/09 completed Medicati on ID: 235763 D uration Value: 20 Brand Name: Alrex [...] mg capsule 04/14 completed Medicati on ID: [id number] Du ration Value: 30 Brand Name: gabapent in Send Method: E-Prescr ibed Sub s Allowed: subs OK Medic ationGen ericName : gabapent in Not Available Not Available Not Available zolpidem 10 mg tablet 09/27 completed Medicati on ID: [id number] Du ration Value: 90 Reason: () Brand Name: zolpidem Send Method: E-Prescr ibed Sub s Allowed: subs OK Medic ationGen ericName : zolpidem Not Available Not Available Not Available ondansetr on 4 mg disintegr ating tablet 2021 active Medicati on ID: [id number] D uration Value: 3 Prescri bed By Name: Svetlana arnold MD Brand Name: steven romero Send Method: E-Prescr ibed Sub s Allowed: subs OK Speci al Instruct ion: Take 1 tab by mouth every 8 hours as needed for nausea M lucy Xiongmansoor Name: steven romero Not Available Not Available [...] mg) tablet 2014 active Medicati on ID: [id number] Br and Name: Calcium 500 Send Method: E-Prescr ibed Sub s Allowed: subs OK Medic ationGen ericName : Calcium 500 Not Available Not Available Not Available Restasis 0.05 % eye drops in a dropperet te 09/27 completed Medicati on ID: 61268 Re ason: () Brand Name: Restasis Send Method: E-Prescr ibed Sub s Allowed: subs OK Medic ationGen ericName : Restasis Not Available Not Available Not Available escitalop more 5 mg tablet active Medicati on ID: 692114 B rand Name: escitalo pram oxalate Send [...] a day 11/18 completed Medicati on ID: [id number] B rand Name: Lyrica S end Method: E-Prescr ibed Sub s Allowed: subs OK Medic ationGen ericName : Lyrica Not Available Not Available Not Available Symbicort 80 mcg-4.5 mcg/actua tion HFA aerosol inhaler 09/27 completed Medicati on ID: [id number] Re ason: () Brand Name: Symbicor t Send Method: E-Prescr ibed Sub s Allowed: subs OK Medic ationGen ericName : Symbicor t Not Available Not Available Not Available levocetir izine 5 mg tablet TAKE ONE TABLET BY MOUTH EVERY DAY NEEDED active Not Available Not Available No t Available Savella 25 mg tablet 08/21 completed Medicati on ID: [id number] D uration Value: 30 Brand Name: Savella Send Method: E-Prescr ibed Sub s Allowed: subs OK Speci al Instruct ion: TAKE ONE TABLET BY MOUTH TWICE A DAY Medi cationGe nericNam e: Savella Not Available Not Available Not Available Daliresp 500 mcg tablet 08/21 completed Medicati on ID: [id number] D uration Value: 30 Brand Name: Daliresp [...] ous solution 03/09 completed Medicati on ID: [id number] B rand Name: HyQvia S end Method: E-Prescr ibed Sub s Allowed: subs OK Medic ationGen ericName : HyQvia Not Available Not Available Not Available HyQvia 20 gram/200 mL (10 %) subcutane ous solution 03/09 completed Medicati on ID: [id number] B rand Name: HyNormavia S end Method: E-Prescr ibed Sub s [...] inhalatio n 2021 active Medicati on ID: [id number] B rand Name: Trelegy Ellipta Send Method: [...] ) capsule 2022 active Medicati on ID: [id number] B rand Name: golden chopra glycinat e Send Method: E-Prescr ibed Sub s Allowed: subs OK Speci al Instruct ion: take 3 capsules once a day Medi cationGe nericNam e: karlyu nav glycinat e Not Available Not Available Not [...] Updated DateTime 06/05/2024 160.02 cm 24.3 kg/m2 03008.15 g Rachel Shook [place] - [facility] 06/05/2024 11:17:54 Social History None recorded. Functional Status None recorded. Mental Status None recorded. Family History Nothing Reported. Medical History Condition Response Hearing Loss Y Gynecological HistoryNo gynecological history recorded. Obstetrics History GPAL:G 0 P 0 0 0 0 Past Encounters Encounter ID Performer Location Encounter Start Date Encounter Closed Date Diagnosis/Indication Diagnosis SNOMED-CT Code Diagnosis ICD10 Code Diagnosis IMO Codes Diagnosis Note [id number] PABLO GALLOWAY PA-C [facility] [address] [place] [address] 06/05/2024 10:25:57 06/05/2024 11:45:41 Sensorineural hearing loss of bilateral ears [id number] H90.3 Audiologic al evaluation results: Right ear: Moderate sloping to severe sensorineu ral hearing loss with fair word recognitio n. Left ear: Moderate low frequency SNHL rising to normal, sloping to severe sensorineu ral hearing loss with excellent word recognitio n. Tympanomet ry: Right Ear:Type A Left Ear:Type A Itching of ear 110904048 L29.89 Bilateral hyperacusis of ears 9630748731 303634 H93.233 M ni re's disease 61355679 H81.01 Bilateral tinnitus 56851 19132 102 H93.13 Health Concerns Section Related Observation LastModified by Organization Detai ls LastModified Time None Recorded Concern Status LastModified by Organization Details LastModified Time None Recorded Advance Directives Directive None Recorded Payers Insurance Date Sequence Insurance Name Policy Number Policy Ibanez Covered Member ID Ibanez Member ID Guarantor Name 08/08/2024 1 [facility] [employer] - [employer] (HMO) [id number] Ann Knox [id number] 1 Ann Knox Notes Date Note Type Note Provider Name and Address Organization Details Recorded Time 06/05/2024 text/html ROS as noted in the HPI 63yo female with bilateral SNHL and history of Meniere's presents for worsening right-sided hearing loss. She reports hyperacusis and intermittent hearing bilaterally. She is struggling to hear the tv and people around her despite hearing aids. Aids were dispensed by [facility] audiology 2-3 years ago. She is scheduled to follow-up for hearing aid adjustment. Denies otalgia or otorrhea. RADHA MYERS MD [address] [place] [address], [phone], [facility] - [facility] 06/06/2024 08:37:01 OBGyn Episode No OBEpisode recorded.
--- OUTSIDE RECORDS SUMMARY | 2025-03-12 22:30 | XMS_ITS | Clinical Summary ---
Author Organization [facility] Address [address] [place] [phone] Phone Care Team Providers Care Performance Improvement Specialist Name Role Phone Berry Lenz Primary Care Provider [phone] Allergies Active Allergy Reactions Criticality Noted Date Comments Adhesive Tape-Silicones 01/04/2020 Aminophylline Acute Generalized Exanthematous Pustulosis 01/04/2020 Ampicillin Unknown 05/02/2012 Amoxicillin-Pot Clavulanate 03/17/20 24 Clindamycin Rash Low 03/17/2024 Methylprednisolone Unknown 05/02/2012 Polyethylene Glycol 05/05/2016 Polyethylene Glycol 3350 10/21/2021 Potassium Iodide Acute Generalized Exanthematous Pustulosis 01/04/2020 Brandan-Dur Acute Generalized Exanthematous Pustulosis 10/21/2021 Theophylline 07/30/2016 Azithromycin Rash Low 03/17/2024 Medications acetaminophen (TYLENOL) 325 mg tablet Take 650 mg by mouth as needed. 1 Active albuterol (ACCUNEB) 1.25 mg/3 mL nebulizer solution Take 1 ampule by nebulization every 6 (six) hours as needed. Active ascorbic acid, vitamin C, (VITAMIN C) 250 MG tablet Take 500 mg by mouth daily. Active calcium carbonate-vitam in D3 1500 mg (600 mg elemental)-400 units per tablet calcium carbonate 600 mg-vitamin D3 10 mcg (400 unit) tablet Active carisoprodol (SOMA) 350 MG tablet Take 350 mg by mouth nightly at bedtime as needed. 2 Active clonazePAM (KLONOPIN) 1 MG tablet TAKE 1 TABLET BY MOUTH NIGHTLY BEFORE BED NEEDED 2 Active TRELEGY ELLIPTA 200-62.5-25 mcg inhaler Inhale 1 puff into the lungs daily. 2 Active magnesium oxide (MAG-OX) 400 mg (241.3 mg elemental) tablet magnesium oxide 400 mg (241.3 mg magnesium) tablet Active omeprazole (PRILOSEC) 20 MG capsule Take 20 mg by mouth 2 (two) times a day. As needed 2 Active senna (SENOKOT) 8.6 mg tablet Take 8.6 mg by mouth. 1 Active triamterene-hyd roCHLOROthiazid e (DYAZIDE) 37.5-25 mg per capsule Every other day 1 Active levothyroxine (SYNTHROID, LEVOTHROID) 50 MCG tablet Take 50 mcg by mouth every morning. Active VENTOLIN HFA 90 mcg/actuation inhaler Inhale 2 puffs into the lungs. Active GAMMAGARD LIQUID 10 % Soln IV injection Inject into the vein. 2.5 gm/ 25 ml, 3 days a month 4 Active milnacipran (SAVELLA) 12.5 mg (5)-25 mg(8)-50 mg(42) DsPkIndications :Fibromyalgia Take 1 tablet by mouth as directed. 55 tablet 5 Active Active Problems Problem Noted Date Diagnosed Date Gastroesophageal reflux disease without esophagi tis 09/11/2024 Assessment & Plan (09/12/2024 10:08 PM EDT): Avoid late, large, spicy meals. Keep headboard elevated at 45 angle for nighttime. Carefully continue omeprazole as needed (she reported taking it 3/7 days last week). Age-related osteoporosis wit hout current pathological fracture 01/11/2024 Assessment & Plan (09/11/2024 10:18 AM EDT): Proper calcium and vitamin D supplementation reviewed and strongly encouraged. Fall and fracture prevention strategies. Daily weightbearing exercises 45-60 minutes. Due to her report of esophageal stricture she is not a good candidate for oral bone preserving therapy therefore I provided her with pamphlet on parenteral option administered IV every 12 months-Reclast (zoledronic acid) Assessment & Plan (03/17/2024 8:42 AM EST): Proper calcium and vitamin D supplementation reviewed and strongly encouraged. Fall and fracture prevention strategies. Daily weightbearing exercises 45-60 minutes. Due to her report of esophageal stricture she is not a good candidate for oral bone preserving therapy therefore I provided her with pamphlet on parenteral option administered IV every 12 months-Reclast (zoledronic acid) Assessment & Plan (01/11/2024 8:37 PM EDT): Proper calcium and vitamin D supplementation reviewed and strongly encouraged. Fall and fracture prevention strategies. Daily weightbearing exercises 45-60 minutes. Due to her report of esophageal stricture she is not a good candidate for oral bone preserving therapy therefore I provided her with pamphlet on parenteral option administered IV every 12 months-Reclast (zoledronic acid) GRACIE positive 01/07/2024 Assessment & Plan (09/11/2024 10:18 AM EDT): I took the liberty of getting additional tests to check for possible autoimmune mediated diseases most frequently associated with positive GRACIE in a speckled pattern. I have explained to her that in case there are no additional abnormalities of concern we may opt to monitor her closely every 6-12 months. Assessment & Plan (03/17/2024 8:42 AM EST): I took the liberty of getting additional tests to check for possible autoimmune mediated diseases most frequently associated with positive GRACIE in a speckled pattern. I have explained to her that in case there are no additional abnormalities of concern we may opt to monitor her closely every 6-12 months. Assessment & Plan (01/11/2024 8:30 PM EDT): I took the liberty of getting additional tests to check for possible autoimmune mediated diseases most frequently associated with positive GRACIE in a speckled pattern. I have explained to her that in case there are no additional abnormalities of concern we may opt to monitor her closely every 6-12 months. Polyp of sigmoid colon 01/07/2024 Assessment & Plan (01/11/2024 8:31 PM EDT): She continues every 3 years colonoscopy due to prior history of sigmoid colon requiring subtotal colectomy per her report and recurrent colonic polyps. Next checkup in 2025. 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 Switched to IVIG monthly-third monthly dose scheduled for March 312023. Assessment & Plan (03/21/2024 4:57 PM EST): Detected over 2 years ago and treated with every 4 weeks subcutaneous Hyqvia infusions-last administered on 12/24/2023. Switched to IVIG monthly-third monthly dose scheduled for March 312023. Assessment & Plan (01/11/2024 8:33 PM EDT): Detected over 2 years ago and treated with every 4 weeks subcutaneous Hyqvia infusions-last administered on 12/24/2023. According to her report may be switching to IVIG soon. Irritable bowel syndrome with constipation 01/06 Assessment & Plan (01/11/2024 8:34 PM EDT): Keep well-hydrated. Provide plan to fiber either via diet or with supplements. Chronic fatigue 01/07/2024 Assessment & Plan (01/11/2024 8:35 PM EDT): Balance rest and activity. Continue regular, age-appropriate screenings and preventive strategies. Gentle, regular exercise routine as tolerated. Avoid falls, injuries, overuse and sick contacts. Keep well-hydrated. Follow well balanced nutritionally diet. Keep regular engagement in hobbies/favorite activities. Fibromyalgia 03/04/2023 Assessment & Plan (09/12/2024 10:07 PM EDT): We discussed the diagnosis of fibromyalgia, its natural history, and treatment. Specifically, we discussed that treatment requires many interventions and recognition that we are often unable to get patients completely pain free. Management of fibromyalgia requires patient engagement to address any underlying depression, anxiety, or sleep disorder. Further, patients are encouraged to engage in regular physical activity. Some studies have suggested that Khoi Chi is effective. Other physical activity may including water-based aerobics, walking, biking, gentle yoga, swimming, Pilates etc. In terms of pharmacotherapy, there are many options, including tricyclic antidepressants, duloxetine, gabapentin or pregabalin, and cyclobenzaprine as well as other similar medications to those listed. Due to multiple intolerances to medications I suggested to focus on nonpharmacologic strategies including mindfulness approach as described in book written by Dr Orion Velasquez [facility] She is interested in trying Savella titration pack with the hope of reducing pain severity without suffering from side effects. Assessment & Plan (03/17/2024 8:42 AM EST): We discussed the diagnosis of fibromyalgia, its natural history, and treatment. Specifically, we discussed that treatment requires many interventions and recognition that we are often unable to get patients completely pain free. Management of fibromyalgia requires patient engagement to address any underlying depression, anxiety, or sleep disorder. Further, patients are encouraged to engage in regular physical activity. Some studies have suggested that Khoi Chi is effective. Other physical activity may including water-based aerobics, walking, biking, gentle yoga, swimming, Pilates etc. In terms of pharmacotherapy, there are many options, including tricyclic antidepressants, duloxetine, gabapentin or pregabalin, and cyclobenzaprine as well as other similar medications to those listed. Due to multiple intolerances to medications I suggested to focus on nonpharmacologic strategies including mindfulness approach as described in book written by Dr Orion Velasquez [facility] Assessment & Plan (01/11/2024 8:28 PM EDT): We discussed the diagnosis of fibromyalgia, its natural history, and treatment. Specifically, we discussed that treatment requires many interventions and recognition that we are often unable to get patients completely pain free. Management of fibromyalgia requires patient engagement to address any underlying depression, anxiety, or sleep disorder. Further, patients are encouraged to engage in regular physical activity. Some studies have suggested that Khio Chi is effective. Other physical activity may including water-based aerobics, walking, biking, gentle yoga, swimming, Pilates etc. In terms of pharmacotherapy, there are many options, including tricyclic antidepressants, duloxetine, gabapentin or pregabalin, and cyclobenzaprine as well as other similar medications to those listed. Due to multiple intolerances to medications I suggested to focus on nonpharmacologic strategies including mindfulness approach as described in book written by Dr Orion Velasquez [facility] Assessment & Plan (03/04/2023 12:33 PM EST): Diffuse muscle pain from fibromyalgia in the setting of anxiety and depression and poor sleep. She is currently on gabapentin 3 times a day as well as Soma which she takes very rarely. Primary osteoarthritis involving multiple joints 03/04/2023 Assessment & Plan (09/11/2024 10:18 AM EDT): Continue joint protection, energy conservation. Gentle, regular exercise routine. Avoid falls, injuries, overuse. Keep body weight in ideal range for her height. She may benefit from topical cream such as Arnica, Biofreeze, Aspercreme versus medicated patches such as salonpas, icy hot patch 2-3 times daily and if necessary at bedtime x 3 weeks. She can use Tylenol 650-1000 up to 3 times daily during exacerbation of symptoms. Assessment & Plan (03/17/2024 8:42 AM EST): Continue joint protection, energy conservation. Gentle, regular exercise routine. Avoid falls, injuries, overuse. Keep body weight in ideal range for her height. She may benefit from topical cream such as Arnica, Biofreeze, Aspercreme versus medicated patches such as salonpas, icy hot patch 2-3 times daily and if necessary at bedtime x 3 weeks. She can use Tylenol 650-1000 up to 3 times daily during exacerbation of symptoms. Assessment & Plan (01/11/2024 8:25 PM EDT): Continue joint protection, energy conservation. Gentle, regular exercise routine. Avoid falls, injuries, overuse. Keep body weight in ideal range for her height. She may benefit from topical cream such as Arnica, Biofreeze, Aspercreme versus medicated patches such as salonpas, icy hot patch 2-3 times daily and if necessary at bedtime x 3 weeks. She can use Tylenol 650-1000 up to 3 times daily during exacerbation of symptoms. Assessment & Plan (03/04/2023 12:33 PM EST): Degenerative osteoarthritis in multiple joints with stiffness and gelling. She has no warm and swollen joints. She can continue with Tylenol 650 mg and DC Advil as needed. Advised her to get daily physical activity to maintain her stamina and mobility. Encounters Date Type Department Care Team Description 01/30/2025 Orders Only [facility] Rheumatology [address] [place] [address] Provider, MD Ajay from Last 3 Months Social History Tobacco Use Types Packs/Day Years Used Date Smoking Tobacco: Never Smokeless Tobacco: Never Tobacco Cessation:Counseling Given: Not Answered Alcohol Use Standard Drinks/Week Comments Not Currently 0 (1 standard drink = 0.6 oz pur e alcohol) Education Answer Date Recorded Are you interested in more education? Not on elizabeth e 08/22/2022 Are you concerned about learning? Not on file 08/22/2022 No 08/22/2022 No 08/22/2022 Digital Access Answer Date Recorded No 09/20/2022 No 09/20/2022 Reliable internet access at home? Not on file 09/20/2022 Device with a working camera? Not on file Comments Unknown Sex and Gender Information Value Date Recorded Sex Assigned at Not on file Legal Sex Female 3:57 PM EDT Gender Identity Not on file Sexual Orientation Not on file Last Filed Vital Signs Vital Sign Reading Time Taken Comments Blood Pressure 100/68 09/11/2024 9:59 AM EDT Pulse 65 09/11/2024 9:59 AM EDT Temperature - - Respiratory Rate - - Oxygen Saturation 99% 09/11/2024 9:59 AM EDT Inhaled Oxygen Concentration - - Weight 59.9 kg (132 lb) 09/11/2024 9:59 AM EDT Height 160 cm (5' 3 ) 09/11/2024 9:59 AM EDT Body Mass Index 23.38 09/11/2024 9:59 AM EDT Plan of Treatment Upcoming Encounters Date Type Department Care Team (Late st Contact Info) Description 03/14/2025 10:00 AM EST Office Visit [facility] Rheumatology [address] [place] [address] Leonila Pichardo MD [address] [facility], [address] [place] [address] [email or web address] Health Maintenance Due Date Last Done Comments LIPID PANEL 1960 TSH LEVEL 1960 DEPRESSION SCREENING 1972 HEPATITIS C SCREENING 1978 HIV ONE-TIME SCREENING (18-6 5 YEARS) 1978 PNEUMOCOCCAL VACCINES (50+ years) (1 of 2 - PCV) 08/06/1979 ZOSTER VACCINES (1 of 2) 08/06/1979 PAP SMEAR 1981 MAMMOGRAM 2000 COLOGUARD 2005 COLONOSCOPY 2005 COLORECTAL CANCER SCREENING 2005 FIT TEST 2005 FOBT 2005 SIGMOIDOSCOPY 2005 VIRTUAL COLONOSCOPY 2005 RSV VACCINE (1 - Risk 50-74 years 1-dose series) 2010 Adult Td,Tdap Booster 07/13/2020 07/13/2010 INFLUENZA VACCINE (#1) 2024 , 03/24/2022, 02/27/2021 COVID-19 VACCINE (4 - 2024-2 6 season) 2024 04/14/2021, 09/11/2020, 08/14/2020 POTASSIUM LEVEL 03/17/2025 03/17/2024 SMOKING STATUS SCREENING (On ce After 26 Yrs) Completed 09/11/2024 HEPATITIS A VACCINES Aged Out No long er eligible based on patient's age to complete this topic HIB VACCINES Aged Out No longer eligi ble based on patient's age to complete this topic IPV VACCINES Aged Out No longer eligi ble based on patient's age to complete this topic MENINGOCOCCAL VACCINES (ACWY) Aged Out No longer eligible based on patient's age to complete this topic MENINGOCOCCAL VACCINES (B) Aged Out N o longer eligible based on patient's age to complete this topic Medical Devices Not on file Procedures Procedure Name Priority Date/Time Associated Diagnosis Comments OUTSIDE [place] BONE SCAN REPORT ONLY Routine 12/14/2024 3:00 PM EDT COMPREHENSIVE METABOLIC PANEL (CMP) Routine 03/17/2024 9:31 AM EST Age-related osteoporosis without current pathological fracture from Last 3 Months or Most Recently Relevant to Health Maintenance Results * Outside [place] Bone scan Report Only (12/14/2024 3:00 PM EDT) Historical Provider MD FABIAN [place] BONE SCAN Final Re sult * (ABNORMAL) Comprehensive metabolic panel (03/17/2024 9:31 AM EST) SODIUM 140 133 - 146 mmol/L [facility] POTASSIUM 3.7 3.3 - 5.1 mmol/L [facility] CHLORIDE 103 96 - 108 mmol/L [facility] CO2 26 21 - 35 mmol/L [facility] BUN 26(H) 6 - 19 mg/dL [facility] CREATININE 0.80 0.5 - 1.5 mg/dL [facility] GLUCOSE 91 70 - 99 mg/dL [facility] ALBUMIN 3.7(L) 3.9 - 4.8 g/dL [facility] TOTAL PROTEIN 8.4(H) 6.5 - 8.0 g/dL [facility] CALCIUM 9.4 8.4 - 10.3 mg/dL [facility] ALKALINE PHOSPHATASE 60 39 - 117 U/L [facility] TOTAL BILIRUBIN 0.3 0.0 - 1.2 mg/dL [facility] AST 25 0 - 37 U/L [facility] ALT 9 0 - 40 U/L [facility] GLOBULIN 4.7 1 - 4.8 g/dL [facility] EGFR 83 >59 mL/min/1.7 3m2 [facility] Comment:Estimated glomerular filtration rate calculated using the CKD-EPI refit equation. ANION GAP 15 10 - 20 mmol/L [facility] Blood 03/17/2024 9:31 AM EST 03/17/2024 9:35 AM EST Leonila Pichardo MD LAB BLOOD BKR ORDERABLES Final Result [facility] [address] [place], [place] [id number] from Last 3 Months or Most Recently Relevant to Health Maintenance Insurance [facility] [employer] [facility] [employer] [facility] [employer] [facility] [facility] [employer] [facility] [employer] [employer] [facility] [employer] [employer] Member Subscriber [facility] Name:Ann Knox Relation to Subscriber:Self Name:Ann Knox Payer ID:[id number] ([facility]) Type:Medicaid Address: [address] [place] [address] [facility] [employer] [employer] Care Teams Performance Improvement Specialist Relationship Specialty Start Date End Date Berry Lenz PA [address] [place] [id number] PCP - General Physician Rock Crusher Operator 01/07/24 Additional Source Comments The information contained in this document represents components of the legal health record. It is not the complete legal health record.[facility]
== END 2025-03-12 11:27 | disposition home or self-care (01) ==
LOC: HO.HPS 10:52
PROVIDERS: PCP Physician Assistant; Visit Provider Hospitalist
DX: J96.11 Chronic respiratory failure with hypoxia (principal); J96.12 Chronic respiratory failure with hypercapnia; J44.1 Chronic obstructive pulmonary disease with (acute) exacerbation; D80.1 Nonfamilial hypogammaglobulinemia; R06.00 Dyspnea, unspecified; J44.89 Other specified chronic obstructive pulmonary disease
CPT/HCPCS: 99214

== ENCOUNTER → 2025-03-12 10:52 | Outpatient (BNVA) | payer OTHER, SELFPAY | PROVIDERS: PCP Physician Assistant; Visit Provider Hospitalist | DX: J96.11 Chronic respiratory failure with hypoxia (principal); J96.12 Chronic respiratory failure with hypercapnia; J44.1 Chronic obstructive pulmonary disease with (acute) exacerbation; J44.89 Other specified chronic obstructive pulmonary disease; D80.1 Nonfamilial hypogammaglobulinemia; G47.33 Obstructive sleep apnea (adult) (pediatric); Z99.89 Dependence on other enabling machines and devices; Z99.81 Dependence on supplemental oxygen | CPT/HCPCS: 99212 ==